=== PATIENT | female | born 1935 | race Caucasian/White ===

== ENCOUNTER 2023-01-04 19:05 | Emergency (ER) | payer OTHER ==
--- OUTSIDE RECORDS SUMMARY | 2023-01-04 19:11 | XMS REPORT | Continuity of Care Document ---
:1935 Author Organization [facility] t Address [address] [place] [address] Care Team Providers Name Role Phone Maya Toledo Primary Care Physician Jhony Arellano Attending Clinician Unavailable Yung White Attending Clinician Unavailable Isai Garsia Attending Clinician Unavailable Bettie REGAN, Randall Meneses Attending Clinician Franklin Toledo Attending Clinician Unavailable Martha Aguirre MD Attending Clinician Michell Lopez Attending Clinician Unavailable John REGAN, Leopoldo Gentile Attending Clinician [phone] Yung White Admitting Clinician Unavailable Randall Alexandre MD Admitting Clinician Franklin Toledo Admitting Clinician Unavailable Physician, No Primary or Family Admitting Clinician Unavaila ble Payers Payer Name Policy Type Policy Number Effective Date Expiration Date Franklin duong MEDICARE PART A [id number] 1998 AND B 00:00:00 Problems Condition Condition Condition Status Onset Resolution Last Treating Co mments Source Name Details Category Date Date Treatment Clinician Date Hypertensi Hypertens Problem Active 2022-09-08 Memoria ve garcía 07:03:11 l disorder, disorder, Herm terri systemic systemic arterial arterial (disorder) (disorder) Active Problem 09/08/2022 [facility] Use for [facility]A [facility]ance Dyspnea on Dyspnea Problem Active 2022-09-08 Memoria exertion on 07:03:11 l (finding) exertion Cely nn (finding) Active Problem 09/08/2022 [facility] Surgical Specialty [facility] Backache Backache Problem Active 2022-09-08 Memoria (finding) (finding) 07:03:11 l Active [place] Problem 09/08/2022 [facility] 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:03:11 l artery artery [place] (disorder) (disorder) Active Problem 09/08/2022 [facility] Use for [facility]A [facility] Hyperlipid Hyperlipi Problem Active 2022-09-08 Memoria emia demia 07:03:11 l (disorder) (disorder) He rmann Active Problem 09/08/2022 [facility] Use for [facility]A Provenance Allergies, Adverse Reactions, Alerts Allergy Allergy Status Severity Reaction(s) Onset Inactive Treating Comm ents Source Name Type Date Date Clinician Sulfa Propensi Active Rash [facility] (Sulfona ty to 2-04 mide adverse 00:00: Hosp[facility] Antibiot reaction 00 l ics) s to drug Sulfa DA Active U 2018-04 [facility] Antib[facility] 00 are ics) [place] Sulfa DA Active U UNKNOWN 2018-04 [facility] (Sulfona 2-06 [facility] 00:00: [facility] Antibiot 00 are ics) [place] sulfa sulfa Active Memoria drugs drugs l [place] Social History Social Habit Start Date Stop Date Quantity Comments Source Exposure to Not sure [facility] SARS-CoV-2 (event) Sexual orientation [facility] Sex Assigned At [birth year] [facility] 00:00:00 00:00:00 Smoking Status Start Date Stop Date Source Tobacco smoking consumption unknown [facility] Medications Ordered Filled Start Stop Current Ordering Indication Dosage Frequency Signature Comments Components Source Medication Medication Date Date Medication? Clinician (SIG) Name Name Bernice Zheng No Notes: Max Douglas mai mg-325 mg 6- 4gm l oral tablet 20:00: acetaminop [place] 00 hen in 24 hours labetalol No 60, SBP Memor ia 6 Hold l 19:14: Parameter: [place] 00 less than 90 mmHg, HR Hold Parameter: l... hydrALAZINE No 100, if Mem oria 09-07 HR<60 l 19:14: and/or [place] 00 labetalol 25mg reached., SBP Hold Parameter: less t... Demerol HCl No 12.5 mg = M emoria 6-09 0.5 mL, l 19:14: Injection, [place] 00 IV Push, q5min PRN for shivers, order duration: 2 dose(s)/ti me(s), first dose 09/07/22 14:14:00 CDT, stop date Limited # of times morphine No 2.5 mg = Memor ia 6- 0.63 mL, l 19:14: Injection, [place] 00 IV Push, q5min PRN for Pain Mild (1-3), order duration: 4 dose(s)/ti me(s), first dose 09/07/22 14:14:00 CDT, stop date Limited # of times, Max dose 10mg; If pain still unrelieved notify Anesthesio logist Dilaudid No 0.5 mg = Memor ia 6-09 0.25 mL, l 19:14: Injection, [place] 00 IV Push, q5min PRN for Pain Moderate (4-6), order duration: 4 dose(s)/ti me(s), first dose 09/07/22 14:14:00 CDT, stop date Limited # of times, Max dose 2mg. If pain still unrelieved , notify Anesthesio logist fentaNYL No 50 mcg = 1 Mem oria 6-09 mL, l 19:14: Injection, [place] 00 IV Push, q5min PRN for pain severe (7-10), order duration: 2 dose(s)/ti me(s), first dose 09/07/22 14:14:00 CDT, stop date Limited # of times, if pain still unrelieved after second dose, notify Anesthesio logist ondansetron 2022-0 No 4 mg = 2 Me moria -09 mL, l 19:14: Injection, IV Push, q15min PRN for nausea/vom iting, order duration: 2 dose(s)/ti me(s), first dose 09/07/22 14:14:00 CDT, stop date Limited # of times promethazin 2022-0 No 12.5 mg, Me moria e IVPB 09-07 Injection, l 19:14: IV Piggyback, Once PRN for severe nausea, infuse over 15 minutes, first dose 09/07/22 14:14:00 CDT diphenhydrA 2022-0 No 12.5 mg = M emoria MINE 09-07 0.25 mL, l 19:14: Injection, IV Push, q15min PRN for allergy symptoms, order duration: 2 dose(s)/ti me(s), first dose 09/07/22 14:14:00 CDT, stop date Limited # of times Saline Lock 2022-0 No 20 mL, Douglas mai Flush 09-07 Soln, IV l 18:44: Push, As Indicated PRN for flush, first dose 09/07/22 13:44:00 CDT propofol 3-0 No 181.685 mg Mem oria 09-07 = 18.17 l 18:38: mL, Emulsion, IV, Once, first dose 09/07/22 13:38:00 CDT, stop date 09/07/22 13:38:00 CDT Lactated 3-0 No IV, start Douglas mai Ringers 09-07 date l Injection 18:36: 09/07/22 13:36:00 CDT, stop date 09/07/22 13:36:00 CDT ceFAZolin 2022-0 No 2 gm, Memoria 09-07 Soln-IV, l 18:00: IV Piggyback, Once, infuse over 30 minutes, first dose 09/07/22 13:00:00 CDT, stop date 09/07/22 13:00:00 CDT, Give within 1 hour of incision, Prophylaxi s ceFAZolin 2022-0 No 2 gm, Memoria 6-09 Soln-IV, l 17:32: IV, Once, first dose 09/07/22 12:32:00 CDT, stop date 09/07/22 12:32:00 CDT lidocaine 3-0 No 30 mg = 3 Mem oria 6-09 mL, l 17:32: Injection, IV, Once, first dose 09/07/22 12:32:00 CDT, stop date 09/07/22 12:32:00 CDT propofol 3-0 No 30 mg = 3 Douglas mai 6-09 mL, l 17:32: Emulsion, IV, Once, first dose 09/07/22 12:32:00 CDT, stop date 09/07/22 12:32:00 CDT Lactated 2022-0 No 1,000 mL, Douglas mai Ringers 6-09 IV, 100 l Injection 17:25: mL/hr, Jimbo n 1,000 mL 00 start date 09/07/22 12:25:00 CDT, For Adults unless there is a known renal disease then use Normal Saline, 1.59, m2 Lidocaine 2022-0 No 5 mg = 0.5 Me moria pf IV start 6- mL, l 0.5mL 17:00: Injection, Jimbo n [TOPS] 00 Subcutaneo us, Once, first dose 09/07/22 12:00:00 CDT, stop date 09/07/22 12:00:00 CDT, For IV Start Saline Lock 0 No 20 mL, Douglas mai Flush 5-16 Soln, IV l 17:13: Push, As Indicated PRN for flush, first dose 08/14/21 12:13:00 CDT Labetalol 2021- No 60, SBP Memor ia 5-16 Hold l 17:13: Parameter: less than 100 mmHg, HR Hold Parameter: ... Hydralazine No 100, if Mem oria 5-16 HR<60 l 17:13: and/or labetalol 25mg reached., SBP Hold Parameter: less t... Demerol HCl No 12.5 mg = M emoria 5-16 0.5 mL, l 17:13: Injection, [place] 00 IV Push, q5min PRN for shivers, order duration: 2 dose(s)/ti me(s), first dose 08/14/21 12:13:00 CDT, stop date Limited # of times Fentanyl No 25 mcg = Memor ia 5-16 0.5 mL, l 17:13: Injection, Nav[place] 00 IV Push, q5min PRN for pain mild-moder ate (1-6), order duration: 2 dose(s)/ti me(s), first dose 08/14/21 12:13:00 CDT, stop date Limited # of times, if pain still unrelieved after second dose, notify Anesthesio logist for fur... Ondansetron No 4 mg = 2 Me moria 5-16 mL, l 17:13: Injection, [place] 00 IV Push, q15min PRN for nausea/vom iting, order duration: 2 dose(s)/ti me(s), first dose 08/14/21 12:13:00 CDT, stop date Limited # of times promethazin No 12.5 mg, Me moria e IVPB 5-16 Injection, l 17:13: IV [place] 00 Piggyback, Once PRN for severe nausea, infuse over 15 minutes, first dose 08/14/21 12:13:00 CDT Diphenhydra No 12.5 mg = M emoria mine 5-16 0.25 mL, l 17:13: Injection, Nav[place] 00 IV Push, q15min PRN for allergy symptoms, order duration: 2 dose(s)/ti me(s), first dose 08/14/21 12:13:00 CDT, stop date Limited # of times Acetaminoph No Notes: Max Memoria en 325 MG / 5-16 4gm l Hydrocodone 17:13: acetaminop [place] Bitartrate 00 hen in 24 5 MG Oral hours Tablet [[place] 5/325] Lactated No IV, start Douglas mai Ringers 5-16 date l Injection 16:47: 08/14/21 Herm terri 11:47:00 CDT, stop date 08/14/21 11:47:00 CDT propofol 2-0 No 160 mg = Memor ia 5-16 16 mL, l 16:45: Emulsion, Navneet 00 IV, Once, first dose 08/14/21 11:45:00 CDT, stop date 08/14/21 11:45:00 CDT ketamine 2-0 No 30 mg = 3 Douglas mai 5-16 mL, l 16:32: Injection, Navneet 00 IV, Once, first dose 08/14/21 11:32:00 CDT, stop date 08/14/21 11:32:00 CDT ketamine 2-0 No 20 mg = 2 Douglas mai 5-16 mL, l 16:25: Injection, [place] IV, Once, first dose 08/14/21 11:25:00 CDT, stop date 08/14/21 11:25:00 CDT fentaNYL 2021-0 No 100 mcg = Douglas mai 5-16 2 mL, l 16:22: Injection, [place] 00 IV, Once, first dose 08/14/21 11:22:00 CDT, stop date 08/14/21 11:22:00 CDT lidocaine 2021-0 No 30 mg = 3 Mem oria 5-16 mL, l 16:22: Injection, [place] 00 IV, Once, first dose 08/14/21 11:22:00 CDT, stop date 08/14/21 11:22:00 CDT propofol 2021-0 No 10 mg = 1 Douglas mai 5-16 mL, l 16:22: Emulsion, [place] 00 IV, Once, first dose 08/14/21 11:22:00 CDT, stop date 08/14/21 11:22:00 CDT Cefazolin 2021-0 No 2 gm, Memoria 5-16 Soln-IV, l 16:00: IV [place] Piggyback, Once, infuse over 30 minutes, first dose 08/14/21 11:00:00 CDT, stop date 08/14/21 11:00:00 CDT, Prophylaxi s Lidocaine 2021-0 No 5 mg = 0.5 Me moria pf IV start 5-16 mL, l 0.5mL 15:00: Injection, Jimbo n [TOPS] 00 Subcutaneo us, Once, first dose 08/14/21 10:00:00 CDT, stop date 08/14/21 10:00:00 CDT, For IV Start LR 1,000 mL No 1,000 mL, M emoria 5-16 IV, 100 l 14:48: mL/hr, start date 08/14/21 9:48:00 CDT, For Adults unless there is a known renal disease then use Normal Saline Vitamin C Yes 500 mg, Memor ia 5-13 Oral, l 19:53: Daily One-A-Day Yes 1 tabs, Memor ia 50+ 5-13 Oral, l 19:53: Daily Amlodipine 0 Yes 5 mg, Memori a 5-13 Oral, qHS l 19:52: olmesartan 0 Yes 40 mg, Memor ia 5-13 Oral, l 19:52: Daily Acetaminoph 0 Yes 1,000 mg = Memoria en 500 MG 5-13 2 tabs, l Oral Tablet 19:52: Oral, Cely nn [Tylenol] 00 q6hr, PRN as needed for pain amLODIPine 0 Yes 5 mg, Memori a 5-13 Oral, qHS l 19:52: olmesartan 0 Yes 40 mg, Memor ia 5-13 Oral, l 19:52: Daily Tylenol 0 Yes 1,000 mg = Douglas mai Extra 5-13 2 tabs, l Strength 19:52: Oral, [place] 500 mg oral 00 q6hr, PRN tablet as needed for pain [place]-3 Yes 2,000 mg, Memor ia Fish Oil 5-13 Oral, l 19:52: Daily pantoprazol 0 Yes 40 mg, Douglas mai e 5-13 Oral, l 19:51: Daily Pravastatin 0 Yes 40 mg, Douglas mai 5-13 Oral, l 19:51: Daily Valproate 0 Yes 250 mg, Memor ia 5-13 Oral, qHS l 19:51: Synthroid 2021-0 Yes 50 mcg, Memor ia 5-13 Oral, l 19:51: Daily Prolia 2021-0 Yes 60 mg, Memoria 5-13 Subcutaneo l 19:51: us, q6mo pantoprazol 2021-0 Yes 40 mg, Douglas mai e 5-13 Oral, l 19:51: Daily pravastatin 2021-0 Yes 40 mg, Douglas mai 5-13 Oral, l 19:51: Daily divalproex 2021-0 Yes 250 mg, Douglas mai sodium 5-13 Oral, qHS l 19:51: Synthroid 2021-0 Yes 50 mcg, Memor ia 5-13 Oral, l 19:51: Daily Prolia 2021-0 Yes 60 mg, Memoria 5-13 Subcutaneo l 19:51: us, q6mo Aspirin 2021-0 Yes 81 mg, Memoria 5-13 Oral, l 19:50: Daily Hydrochloro 2-0 Yes 25 mg, Douglas mai thiazide 5-13 Oral, l 19:50: Daily Buspirone 2021-0 Yes 5 mg, Memoria 5-13 Oral, BID l 19:50: aspirin 2021-0 Yes 81 mg, Memoria 5-13 Oral, l 19:50: Daily hydroCHLORO 2-0 Yes 25 mg, Douglas mai thiazide 5-13 Oral, l 19:50: Daily busPIRone 2021-0 Yes 5 mg, Memoria 5-13 Oral, BID l 19:50: 00 Immunizations Ordered Filled Immunization Date Status Comments [facility] e Immunization Name Name [facility] NoWaitID-19 2020-05-26 [facility] 2020-[facility] 2020-05-26 [facility] 2020-05-05 [facility] 2020-[facility]05 [facility] 00:00:00 [facility] PFIZER COVID-19 2020-05-05 Completed [facility]ACC[facility] 00:00:00 [facility] PFIZER COVID-19 2020-05-05 Completed [facility] 00:00:00 [facility] PFIZER COVID-19 Unknown Completed [facility] PFIZER COVID-19 Unknown Completed [facility] Vital Signs Vital Name Observation Time Observation Value Comments Source Heart Rate 2022-09-07 19:45:00 [facility] Respitory Rate 2022-09-07 19:45:00 Memori al [place] Systolic (mm Hg) 2022-09-07 19:45:00 Douglas rial [place] Diastolic (mm Hg) 2022-09-07 19:45:00 Mem orial [place] Heart Rate 2022-09-07 19:30:00 [facility] [place] Respitory Rate 2022-09-07 19:30:00 Memori al [place] Systolic (mm Hg) 2022-09-07 19:30:00 Douglas rial [place] Diastolic (mm Hg) 2022-09-07 19:30:00 Mem orial [place] Heart Rate 2022-09-07 19:15:00 [facility] [place] Respitory Rate 2022-09-07 19:15:00 Memori al [place] Systolic (mm Hg) 2022-09-07 19:15:00 Douglas rial [place] Diastolic (mm Hg) 2022-09-07 19:15:00 Mem orial [place] Temperature Oral (F) 2022-09-07 18:30:00 36.9 Bri [facility] Temperature Oral (F) 2022-09-07 16:32:00 36 Bri [facility] [place] Height 2022-09-07 16:32:00 152.40 cm [facility] Weight 2022-09-07 16:32:00 [facility] [place] Height 2022-08-30 19:34:00 152.40 cm [facility] [place] Weight 2022-08-30 19:34:00 [facility] [place] Heart Rate 2021-08-14 17:30:00 [facility] [place] Respitory Rate 2021-08-14 17:30:00 Memori al [place] Systolic (mm Hg) 2021-08-14 17:30:00 Douglas rial [place] Diastolic (mm Hg) 2021-08-14 17:30:00 Mem orial [place] Diastolic (mm Hg) 2021-08-14 17:15:00 Mem orial [place] Heart Rate 2021-08-14 17:15:00 [facility] [place] Respitory Rate 2021-08-14 17:15:00 Memori al [place] Systolic (mm Hg) 2021-08-14 17:15:00 Douglas rial [place] Heart Rate 2021-08-14 17:00:00 [facility] [place] Respitory Rate 2021-08-14 17:00:00 Memori al [place] Systolic (mm Hg) 2021-08-14 17:00:00 Douglas rial [place] Diastolic (mm Hg) 2021-08-14 17:00:00 Mem orial [place] Temperature Oral (F) 2021-08-14 16:45:00 36.2 [facility] Temperature Oral (F) 2021-08-14 14:49:00 36.2 Bri [facility] Height 2021-08-14 14:49:00 152 cm [facility] Weight 2021-08-14 14:49:00 [facility] Procedures Procedure Date / Time Performed Performing Clinician [facility] e INSERT INTERLAMINAR 2022-09-07 17:39:00 [facility] DISTRACTION DEV. W/O FUSION SINGLE LEVEL LUMBAR 52666 (N/A)<sup>2</sup> INSERT INTERLAMINAR 2022-09-07 17:39:00 [facility] DISTRACTION DEV. W/O FUSION SECOND LEVEL LUMBAR 79533 (N/A)<sup>1</sup> PERCUTANEOUS 2021-08-14 16:33:00 [facility] LAMINOTOMY/LAMINECTOMY DECOM.NEURAL [place]. W/IMAGE; SING/MULTI; UNI/SHIRA LUMBAR 0275T (N/A)<sup>1</sup> XR KNEE 3 VIEWS BILATERAL 2021-01-25 20:43:15 Martha Aguirre [facility] Arthroplasty of knee [facility] He ann Arthroplasty of knee [facility] rmann History of tonsillectomy Memoria l [place] Thyroidectomy [facility] Plan of Care Planned Activity Planned Date Details Comments Source Future Scheduled 2022-12-06 COVID-19 VACCINE (3 - [facility] Test 05:56:19 Pfizer series) [code = COVID-19 VACCINE (3 - Pfizer series)] Future Scheduled 2022-12-06 INFLUENZA VACCINE (#1) [facility] Test 05:56:19 [code = INFLUENZA VACCINE (#1)] Future Scheduled 2022-12-06 SHINGLES VACCINES (1 Met [facility] Test 05:56:19 of 2) [code = SHINGLES VACCINES (1 of 2)] Future Scheduled 2022-12-06 65+ PNEUMOCOCCAL [facility] Test 05:56:19 VACCINE (1 - PCV) [code = 65+ PNEUMOCOCCAL VACCINE (1 - PCV)] Future Scheduled 2022-02-05 HEPATITIS B VACCINES Met [facility] Test 12:01:23 (1 of 3 - 3-dose series) [code = HEPATITIS B VACCINES (1 of 3 - 3-dose series)] Future Scheduled 2022-02-05 SHINGLES VACCINES (1 Met [facility] Test 12:01:23 of 2) [code = SHINGLES VACCINES (1 of 2)] Future Scheduled 2022-02-05 65+ PNEUMOCOCCAL [facility] Test 12:01:23 VACCINE (1 - PCV) [code = 65+ PNEUMOCOCCAL VACCINE (1 - PCV)] Future Scheduled 2022-02-05 COVID-19 VACCINE (3 - [facility] Test 12:01:23 Booster for Pfizer series) [code = COVID-19 VACCINE (3 - Booster for Pfizer series)] Future Scheduled 2022-02-05 INFLUENZA VACCINE Method [facility] Test 12:01:23 [code = INFLUENZA VACCINE] Future Scheduled 2021-12-18 HEPATITIS B VACCINES Met [facility] Test 02:47:18 (1 of 3 - 3-dose series) [code = HEPATITIS B VACCINES (1 of 3 - 3-dose series)] Future Scheduled 2021-12-18 SHINGLES VACCINES (1 Met [facility] Test 02:47:18 of 2) [code = SHINGLES VACCINES (1 of 2)] Future Scheduled 2021-12-18 65+ [facility]18 VACCINE (1 - PCV) [code = 65+ PNEUMOCOCCAL VACCINE (1 - PCV)] Future Scheduled 2021-12-18 COVID-19 VACCINE (3 - Me [facility] Test 02:47:18 Booster for Pfizer series) [code = COVID-19 VACCINE (3 - Booster for Pfizer series)] Future Scheduled 2021-12-18 INFLUENZA VACCINE Method [facility] Test 02:47:18 [code = INFLUENZA VACCINE] Future Scheduled 2021-12-18 HEPATITIS B VACCINES Met [facility] Test 02:47:18 (1 of 3 - 3-dose series) [code = HEPATITIS B VACCINES (1 of 3 - 3-dose series)] Future Scheduled 2021-12-18 SHINGLES VACCINES (1 Met [facility] Test 02:47:18 of 2) [code = SHINGLES VACCINES (1 of 2)] Future Scheduled 2021-12-18 65+ P[facility]UMOCOCCAL [facility] Test 02:47:18 VACCINE (1 - PCV) [code = 65+ PNEUMOCOCCAL VACCINE (1 - PCV)] Future Scheduled 2021-12-18 COVID-19 VACCINE (3 - Me [facility] Test 02:47:18 Booster for Pfizer series) [code = COVID-19 VACCINE (3 - Booster for Pfizer series)] Future Scheduled 2021-12-18 INFLUENZA VACCINE [facility] Test 02:47:18 [code = INFLUENZA VACCINE] Future Scheduled SHINGLES VACCINES (#1) [facility] Test [code = SHINGLES VACCINES (#1)] Future Scheduled 65+ PNEUMOCOCCAL [facility] Test VACCINE (1 of 1 - PPSV23) [code = 65+ PNEUMOCOCCAL VACCINE (1 of 1 - PPSV23)] Future Scheduled INFLUENZA VACCINE Method [facility] Hospital Test [code = INFLUENZA VACCINE] Encounters Start End Encounter Admission Attending Care Care Encounter Source Date/Time Date/Time Type Type Clinicians Facility Department ID 2021-04-07 Outpatient ISHMAEL Arellano [id number] [facility] 13:49:43 Jhony 02 [facility] [place] 2021-01-25 Outpatient [facility] [id number] [place] 15:22:29 Health 2021-01-05 Inpatient ISHMAEL Torres [id number] [facility] 12:30:00 Yung [id number] [facility] [place] 2020-12-21 Inpatient ISHMAEL DANILO [id number] [facility] 12:58:00 [id number] [facility] [place] 2019-12-22 Inpatient ISHMAEL Garsia RAD [id number] [facility] 09:00:00 Isai [id number] [facility] [place] 2022-09-07 2022-09-07 Outpatient GHASSAN TOPS [id number] [facility] 16:20:00 20:10:00 Surgical l [facility] 2022-09-07 2022-09-07 Outpatient Bettie, [id number] 11:20:00 15:10:00 [facility] 2022-03-05 2022-03-05 Outpatient [facility] [id number] [facility] 15:38:00 15:38:00 47 [facility] [place] 2022-02-02 2022-02-02 Outpatient nullFlavo TSSH [id number] Memoria 16:12:29 18:10:00 r shea [place] 2022-01-11 2022-01-11 Outpatient Franklin [facility] MATY [id number] [facility] 12:30:00 12:30:00 61 [facility] [place] 2021-08-14 2021-08-14 Outpatient nullFlavo TOPS [id number] Memoria 16:19:40 17:51:00 r Surgical l [facility] 2021-08-14 2021-08-14 Outpatient Bettie, [id number] 11:19:40 12:51:00 Randall Floyd [facility] 2021-08-14 2021-08-14 Outpatient nullFlavo TSSH [id number] Memoria 11:19:40 12:51:00 r shea Toth 2021-04-07 2021-04-07 Outpatient REINA [facility]llano [facility] RMRI [id number] [facility] 12:13:00 12:13:00 Jhony [id number] [facility] [place] 2021-01-25 2021-01-25 Office EMMANUEL Aguirre [id number] [place] 14:53:11 15:52:19 Visit [facility] [id number] [facility] [id number] [facility] [id number] 2021-01-05 2021-01-05 Outpatient REINA White [facility] MATY [id number] [facility] 12:30:00 12:30:00 Yung 39 [facility] [place] 2020-12-21 2020-12-21 Emergency EM John, DBTB DANILO [id number] [facility] 12:58:00 17:10:00 Michell Coffey [facility] [place] 2020-08-10 2020-08-[address] [id number] [facility] 15:00:00 15:00:00 Yung [id number] [facility] [place] 2020-05-26 2020-05-26 Clinical John, 1.2.840.1 [id number] [facility] 08:49:18 08:54:18 Support Leopoldo [address]1649.1.[address] P. 3.430.2.7 Hospit a .3.381182 l .8 2020-05-26 2020-05-26 Travel 1.2.840.1 [id number] [facility] 00:00:00 00:00:[address] 3.430.2.7 0.2.7.3.698 Ho spita .3.230341 084.8 l .8 2020-05-05 2020-05-05 Clinical 1.2.840.1 [id number] [facility] 08:57:20 09:02:[address] 3.430.2.7 Hospit a .3.501569 l .8 2020-05-05 2020-05-05 Travel 1.2.840.1 [id number] [id number] [facility] 00:00:00 00:00:[address] 3.430.2.7 0.2.7.3.698 Ho spita .3.196940 084.8 l .8 2020-01-01 2020-01-01 Outpatient REINA ChristopherISHMAEL MATY [id number] [facility] 12:00:00 12:00:00 Yung [id number] [facility] [employer] 2019-12-17 2019-12-17 Outpatient ISHMAEL Garsia LAB [id number] [facility] 16:20:00 16:20:00 Isai [id number] [facility] [place] Results Test Description Test Time Test Comments [facility] - [facility] 2 V 2022-03-05 16:14:00 [facility] : 1935 Sex: F Patient Name: VEENA HULL Unit No: [id number] EXAMS: CPT: [id number] XR CHEST 2 V [id number] COMPARISON: December 21, 2020. CHEST RADIOGRAPHS -FRONTAL AND LATERAL VIEWS. INDICATION: Shortness of breath. FINDINGS: The lungs are clear. No consolidation or effusion is seen. The hilar regions and pulmonary vasculature are unremarkable. Cardiac silhouette is normal. IMPRESSION: No acute lung disease. at 1614 Reported and signed by: Alla Lorenzo MD CC: Franklin Toledo MD Technologist: Junito Pratt Fluoro Time: DAP (Gy m2): Air Kerma (mGy): Trscr Dt/Tm: 03/05/2022 (1614) by:[email or web address] Orig Print D/T: S: 03/05/2022 (2307) BATCH NO: N/A Name: VEENA HULL [facility] [place] Phys: [email or web address] - Franklin Toledo [address] [facility] 1935 Age: 86 Sex: F Finley,Tal Loc: [facility]ALEX Exam Date: 03/05/2022 Status: REG CLI PH: FAX: PAGE 1 Signed Report - MG 3D SCREENING 2022-01-12 DIG WCAD 17:24:[facility] : 1935 Sex: F Patient Name: VEENA HULL Unit No: [id number] EXAMS: CPT: [id number] MG 3D SCREENING DIG WCAD CLINICAL: Z12.31 Screening Mammogram. The patient denies any current breast complaints. Digital breast tomosynthesis imaging has been obtained as part of this examination. COMPARISON(S): Comparison is made to exam(s) dated: 01/05/2021, 01/01/2020, 12/29/2018. FINDINGS: Breast Composition Category A: The breast tissue is predominately fatty. Current study was also evaluated with a Computer Aided Detection (CAD) system. There are benign-appearing calcifications which appear similar without a suspicious group appreciated. No significant change is noted of the overall parenchymal pattern. No dominant suspicious mass, malignant type microcalcifications, or unexpected distortion is seen in either breast. IMPRESSION: BENIGN There are no specific mammographic features of malignancy. Recommend correlation with clinical breast exam. If there are no suspicious findings on physical examination, routine mammographic evaluation can be performed in 1 year if clinically indicated. (01/12/2023) A letter will be sent informing the patient of the results of this examination and the appropriate information has been entered into a reminder system with a targeted due date for the next mammogram. [facility] specialized breast radiologists follow the [place] [employer] Guidelines of annual screening mammography after age 40. Please note that imaging studies do not have 100% sensitivity, therefore a negative exam should not delay further workup/biopsy or follow-up of a clinically suspicious finding. This exam was interpreted at the [place] location. Abbie Borja M.D. mt/:01/12/2022 17:24:21 Letter: Normal BI-RADS Category 2: Benign Name: VEENA HULL Mammography Phys: CRAIGRanjitFranklin Franco : 1935 Age: 86 Sex: F [place], [place] Loc: T.PINEDO Exam Date: 01/11/2022 Status: PRE REF PH: FAX: PAGE 1 Signed Report (CONTINUED) Patient Name: VEENA HULL Unit No: [id number] EXAMS: CPT: [id number] MG 3D SCREENING DIG WCAD (Continued) at 1724 Reported and signed by: Abbie Borja MD CC: Franklin Toledo MD Technologist: Sadia Dt/Tm: 01/12/2022 (1724) by:MILLER Orig Print D/T: S: 01/15/2022 (141) BATCH NO: N/A Name: VEENA HULL Mammography Phys: Franklin Almeida : 1935 Age: 86 Sex: F Edie Mej[place] Loc: T.PINEDO Exam Date: 01/11/2022 Status: PRE REF PH: FAX: PAGE 2 Signed Report - MRI L-SPINE W/O 2021-04-07 CONT 13:46:00 [facility] : 1935 Sex: F Patient Name: VEENA HULL Unit No: [id number] EXAMS: CPT: [id number] MRI L-SPINE W/O CONT 89405 EXAMINATION: MR LUMBAR SPINE WITHOUT CONTRAST CLINICAL INFORMATION: Lumbar radiculopathy. TECHNIQUE: Noncontrast multiplanar MRI examination of the lumbar spine. COMPARISON: CT dated 08/10/2020 FINDINGS: 5 lumbar type vertebral bodies are present when correlated to the CT examination. Note that there is bilateral lumbosacral transitional anatomy with sacralization of L5 on both sides on the basis of pseudoarthrosis between the transverse processes and adjacent sacrum, hypertrophic changes noted on the left side compared to the right side which is better seen on the prior CT dated 08/10/2020. Lumbar vertebrae appear intact. No acute osseous abnormality or fracture. No marrow replacing or infiltrating process. Lumbar vertebral heights intact. Levoscoliosis of the lumbar spine centered at L2 as seen on the prior CT examination. Right lateral listhesis at T12-L1, L1-L2, and L2-L3. Left lateral listhesis at L2-L3 and L3-L4, minimally present at L4-5. There is also grade 1 retrolisthesis at T12-L1. Minimal trace grade 1 retrolisthesis at L2-L3. Grade 1 anterolisthesis at L4-L5. Disc height narrowing and disc desiccation with marginal ossified formation throughout the lumbar spine, particularly severe at T12-L1, L2-L3, L4-5, and L5-S1. No definite evidence of ankylosis or osseous erosive disease. Bulky marginal osteophyte formation throughout the lumbar spine present. Spinal cord terminates at L1. Numerous small synovial cysts are surrounding the bilateral L3-L4 facet joints, best seen on sagittal series 5, image 9 as well as sagittal series 5, image 15, secondary to severe facet arthritis. Paravertebral and paraspinal soft tissues are otherwise intact. Numerous benign-appearing bilateral subcentimeter T2 hyperintense cysts. Additional findings as described below: T12 -- L1: Retrolisthesis with disc bulge and adjacent endplate osteophyte formation, in addition to bilateral hypertrophic facet degeneration, right greater than left. Mild-moderate narrowing of the spinal canal. Mild-moderate left-sided and mild right-sided neural foraminal stenosis. L1 -- L2: Retrolisthesis and diffuse of compression disc bulge in Name: VEENA HULL MRI OP Phys: [email or web address].01 - [place] [id number] [place]: 1935 Age: 85 Sex: F [place] [id number] Loc: T.MRI Exam Date: 04/07/2021 Status: REG CLI PH: FAX: PAGE 1 Signed Report (CONTINUED) Patient Name: VEENA HULL Unit No: [id number] EXAMS: CPT: [id number] MRI L-SPINE W/O CONT 16354 (Continued) addition to advanced bilateral hypertrophic facet degeneration, resulting in mild narrowing of the spinal canal, in addition to severe right-sided and moderate left-sided neural foraminal stenosis. L2 -- L3: Diffuse disc bulge with adjacent plate osteophyte formation and severe bilateral hypertrophic facet degeneration resulting in moderate-severe narrowing of the spinal canal, with only mild CSF signal within the thecal sac at this level as seen on axial series 7, image 24. Moderately advanced-severe narrowing of both neural foramina. L3 -- L4: Diffuse circumferential disc bulge with superimposed posterior central disc protrusion measuring 4.5 mm, in addition to severe bilateral hypertrophic facet degeneration and ligament buckling, resulting in severe spinal canal stenosis with effacement of the CSF signal within the thecal sac at this level. Severe left-sided and moderately advanced right-sided neural foraminal stenosis. L4 -- L5: Anterolisthesis with disc uncovering and superimposed disc bulge, in addition to severe bilateral hypertrophic facet degeneration. Mild narrowing of the spinal canal. Moderate narrowing of both neural foramina, left worse than right. L5 -- S1: Diffuse circumferential disc bulge with superimposed posterior central broad-based disc protrusion measuring 5.3 mm. Advanced bilateral hypertrophic facet degeneration. No significant mass effect on the thecal sac which terminates slightly below the L5-S1 intervertebral disc space. Mild-moderate narrowing in the proximal most aspects of both lateral recesses. Moderately advanced-severe narrowing of both neural foramina. IMPRESSION: Advanced multifocal lumbar spondylosis in the setting of lumbar levoscoliosis and multilevel spondylolisthesis as detailed above, without acute osseous abnormality or fracture. Severe spinal canal stenosis at L3-L4 with effacement of the CSF signal within the thecal sac at this level. Moderate-severe spinal canal stenosis at L2-L3. Varying levels of advanced neural foraminal encroachment. at 1346 Reported and signed by: Jeremy Philip MD Name: VEENA HULL MRI OP Phys: [place] [id number] [address] : 1935 Age: 85 Sex: [place] [id number] Loc: T.MRI Exam Date: 04/07/2021 Status: REG CLI PH: FAX: PAGE 2 Signed Report (CONTINUED) Patient Name: VEENA HULL Unit No: [id number] EXAMS: CPT: [id number] MRI L-SPINE W/O CONT 21436 (Continued) CC: Yung White MD; Jhony Arellano MD Technologist: Alessio Garcia Trscr Dt/Tm: 04/07/2021 (134) by:[email or web address] Orig Print D/T: S: 04/07/2021 (134) BATCH NO: N/A Name: VEENA HULL MRI OP Phys: [place]. [place] [id number] [address] : 1935 Age: 85 Sex: [place] [address] Loc: T.MRI Exam Date: 04/07/2021 Status: REG CLI PH: FAX: PAGE 3 Signed Report - 3D SCREENING 2021-01-06 [facility] WCAD 16:54:00 [facility] : 1935 Sex: F Patient Name: VEENA HULL Unit No: [id number] EXAMS: CPT: [id number] MG 3D SCREENING DIG [facility] CLINICAL: Z12.31 - Screening Mammogram. Digital breast tomosynthesis imaging has been obtained as part of this examination. Comparison is made to exam(s) dated: 01/01/2020, 12/29/2018, 12/17/2016, 11/28/2015, 09/13/2014. Breast Composition Category A: The breast tissue is predominately fatty. Current study was also evaluated with a Computer Aided Detection (CAD) system. There are benign calcifications in the left breast. No significant masses, calcifications, or other findings are seen in either breast. There has been no significant interval change. IMPRESSION: BENIGN There is no mammographic evidence of malignancy. Routine mammographic evaluation in 1 year is recommended.(01/06/2022 ) A letter will be sent informing the patient of the results of this examination and the appropriate information has been entered into a reminder system with a targeted due date for the next mammogram. [facility] specialized breast radiologists follow the [place] [employer] Guidelines of annual screening mammography after age 40. This exam was interpreted at the [place] location. Daija Harp M.D. aa/penrad:01/06/2021 16:54:02 Letter: Normal BI-RADS Category 2: Benign at 0914 Reported and signed by: Daija Harp MD CC: Yung White MD Technologist: Trscr Dt/Tm: 01/06/2021 (1654) by:MILLER Orig Print D/T: S: 01/23/2021 (0703) BATCH NO: N/A Name: VEENA HULL [facility] Phys: Yung Lindsey MD : 1935 Age: 85 Sex: F [place], [place] Loc: LIZA Exam Date: 01/05/2021 Status: PRE REF PH: FAX: PAGE 1 Signed Report - XR CHEST 2 V 2020-12-21 16:12:00 [facility] : 1935 Sex: F Patient Name: VEENA HULL Unit No: [id number] EXAMS: CPT: [id number] XR CHEST 2 V 64624 EXAM: SINGLE VIEW OF THE CHEST HISTORY: 85-year-old female with chest pain. COMPARISON: Chest x-ray 12/21/2020 at 1343 hours. FINDINGS: Lines/tubes: None. Lungs/Pleura: A linear retrocardiac opacity is present. Pulmonary vasculature appears within normal limits. No pleural effusion or pneumothorax. Heart/mediastinum: Cardiomediastinal silhouette is within normal limits. Bones/soft tissues: Within normal limits. IMPRESSION: Linear retrocardiac opacity, likely reflecting atelectasis. at 1612 Reported and signed by: YUMI WOOD DO CC: Michell Lopez MD; Marguerite Ho MD; Yung White MD Technologist: ANITA Thompson Time: DAP (Gy m2): Air Kerma (mGy): Trscr Dt/Tm: 12/21/2020 (161) by:[email or web address] Orig Print D/T: S: 12/21/2020 (1614) BATCH NO: N/A Name: VEENA HULL [facility] [place] Phys: MD Marguerite Cobian [address] [facility] : 1935 Age: 85 Sex: F [place] Loc: T.ERS Exam Date: 12/21/2020 Status: REG ER PH: FAX: PAGE 1 Signed Report B-TYPE NATRIURETIC PEPTIDE 2020-12-21 15:21:00 Test Item Value Reference Range Interpretation Comme nts B-TYPE NATRIURETIC PEPTIDE (test code = BNP) 45 pg/mL 5-100 N BASIC METABOLIC [id number] 15:01:00 Test Item Value Reference Range Interpretation Comments SODIUM (test code 137 mmol/L 136-145 N = NA) POTASSIUM (test 3.8 MMOL/L 3.6-5.2 N code = K) CHLORIDE (test 98 MMOL/L 98-110 N code = CL) CARBON DIOXIDE 26 mEq/L 24-32 N (test code = CO2) GLUCOSE (test code 117 mg/dL 70-110 H = GLU) BLOOD UREA 25 mg/dL 7-18 H NITROGEN (test code = BUN) GLOMERULAR >=60 max >60 The estimated FILTRATION RATE estimate glomerular (test code = GFR) filtration rate is computed usingpatient ra ce, age (>18), sex, and serum creatinin e. If anyof the neede d data elements a re missing the Laboratory edwina ot compute an estimation of t he glomerular filtration rate . CREATININE (test 0.84 mg/dL 0.60-1.30 N code = CREAT) CALCIUM (test code 10.3 mg/dL 8.6-10.3 N = CA) TROPONIN I [id number] 14:55:00 Test Item Value Reference Range Interpretation Comments TROPONIN I RAPID 0.00 ng/mL 0.00-0.08 N ISTAT TROP ONIN I (test code = CRITERIA0.00-0. 08 ng/mL - TROPIRAP) Negative>0.08 n g/mL - Positive The us e of serial sampling and te sting protocol is are commended practice.An samuel vated troponin level alone is often not suffi cient fordiagnosis of myocardial infarction. Tro ponin results obtaine d by different assay s may vary.Evaluation of the extent of myoca rdial damage based on increase of troponin would be valid only if similar methodology is used. CBC W/AUTO [id number] 14:50:00 Test Item Value Reference Range Interpretation Comments WHITE BLOOD CELL (test code = WBC) 6.07 K/mm3 5.0-12.0 N RED BLOOD CELL (test code = RBC) 3.97 M/mm3 4.20-5.40 L HEMOGLOBIN (test code = HGB) 13.4 G/DL 12.0-16.0 N HEMATOCRIT (test code = HCT) 41.0 % 34.9-44.5 N MEAN CELL VOLUME (test code = MCV) 103 fL 81-99 H MEAN CELL HGB (test code = MCH) 33.8 PGM 27-31 H MEAN CELL HGB CONCENTRATION (test 32.7 G/DL 33-37 L code = MCHC) RED CELL DISTRIBUTION WIDTH (test 11.1 % 11.6-16.2 L code = RDW) PLATELET COUNT (test code = PLT) 229 K/mm3 130-400 N MEAN PLATELET VOLUME (test code = 10.1 fl 7.4-10.4 N MPV) NEUTROPHIL % (test code = NT%) 64.6 % 43-65 N IMMATURE GRANULOCYTE % (test code 0.3 % 0.0-2.0 N = IG%) LYMPHOCYTE % (test code = LY%) 26.2 % 20.5-45.5 N MONOCYTE % (test code = MO%) 7.6 % 5.5-11.7 N EOSINOPHIL % (test code = EO%) 0.5 % 0.9-2.9 L BASOPHIL % (test code = BA%) 0.8 % 0.2-1.0 N NUCLEATED RBC % (test code = 0.0 % 0-1.0 N NRBC%) NEUTROPHIL # (test code = NT#) 3.92 K/mm3 2.2-4.8 N LYMPHOCYTE # (test code = LY#) 1.59 K/mm3 1.3-2.9 N MONOCYTE # (test code = MO#) 0.46 K/mm3 0.3-0.8 N EOSINOPHIL # (test code = EO#) 0.03 K/MM3 0.0-0.2 N BASOPHIL # (test code = BA#) 0.05 K/mm3 0.0-0.1 N - XR CHEST 1 [id number] 14:28:00 [facility] : 1935 Sex: FPatient Name: VEENA HULL Unit No: [id number] EXAMS: CPT: [id number] XR CHEST 1 V 37538 EXAM: SINGLE VIEW OF THE CHEST HISTORY: 85-year-old female with chest pain. COMPARISON: Chest x-ray 03/06/2019. FINDINGS: Lines/tubes: None. Lungs/Pleura: Retrocardiac opacity, which appears new from the comparison exam in 2019. Pulmonary vasculature appears within normal limits. No pleural effusion or pneumothorax. Heart/mediastinum: Cardiomediastinal silhouette is within normal limits. Bones/soft tissues: Within normal limits. IMPRESSION: New retrocardiac opacity with central lucency, may reflect hiatal hernia or developing infectious/inflammatory process. Lateral projection or cross- sectional imaging may further characterize. at 1428 Reported and signed by: YUMI WOOD DO CC: Michell Lopez MD; Marguerite Ho MD; Yung White MD Technologist: Selma Arora Fluoro Time: DAP (Gy m2): Air Kerma (mGy): Trscr Dt/Tm: 12/21/2020 (1428) by:[email or web address] Orig Print D/T: S: 12/21/2020 (1432) BATCH NO: N/A Name: VEENA HULL [facility] Phys: MD Marguerite Cobian [address] [facility] : 1935 Age: 85 Sex: F [place] Loc: T.ERS Exam Date: 12/21/2020 Status: REG ER PH: FAX: PAGE 1 Signed Report- CT L-SPINE W/O [id number] 16:55:00 [facility] : 1935 Sex: FPatient Name: VEENA HULL Unit No: [id number] EXAMS: CPT: [id number] CT L-SPINE W/O CONTRAST 23863 CT SCAN OF THE LUMBAR SPINE WITHOUT CONTRAST: COMPARISON: None available CLINICAL HISTORY:RIGHT HIP PAIN RADIATING DOWN THE LEG. Contrast: IV- None. Oral-None. DLP: 811 mGy/cm. FINDINGS: Extensive multilevel disc space narrowing, osteophytosis and hypertrophic facet changes seen. Levocurvature of the lumbar spine noted. Grade 1 anterolisthesis of L4 on L5. Mild retrolisthesis of T12 on L1.No acute fracture is seen. No bony destructive lesions seen. IMPRESSION: Multilevel degenerative change. Levocurvature of the lumbar spine. Grade 1 anterolisthesis of L4 on L5. Mild retrolisthesis of T12 on L1. If patient has persistent unexplained symptomatology, MRI may be helpful for further evaluation. COMMENT: CT radiation dose optimization is achieved for this examination by one or more of the following dose reduction techniques-automated exposure control, adjustment of the mA and/or KV according to patient size, and/or utilization of iterative reconstruction technique. at 1651 Reported and signed by: Bhanu Gutierrez MD CC: Yung White MD Technologist: Cheri Alcantar CTDI: 28.97 DLP: 811.12 Trscr Dt/Tm: 08/10/2020 (6737) by:Fam Orig Print D/T: S: 08/10/2020 (1658) BATCH NO: N/A Name: VEENA HULL [facility] [place] Phys: Yung Lindsey MD [address] [facility] : 1935 Age: 85 Sex: F [place] Me[place] Loc: T.CTS Exam Date: 08/10/2020 Status: REG CLI PH: FAX: PAGE 1 Signed Report- CT PELVIS W/O [id number] 15:56:00 [facility] : 1935 Sex: FPatient Name: VEENA HULL Unit No: [id number] EXAMS: CPT: [id number] CT PELVIS W/O CONTRAST 16327 EXAM: CT scan of the bony pelvis without contrast COMPARISON: None available CLINICAL HISTORY: RIGHT HIP PAIN RADIATING DOWN THE LEG. Contrast: IV-None. Oral-None. DLP: 1151 mGy/cm. FINDINGS: No acute fracture or dislocation seen. Mild degenerative changes are seen involving the right and left hips. No significant hip joint effusion seen. Incompletely distended bladder is unremarkable. No significant free fluid seen in the pelvis. IMPRESSION: Degenerative changes are seen involving the hips. COMMENT: CT radiation dose optimization is achieved for this examination by one or more of the following dose reduction techniques-automated exposure control, adjustment of the mA and/or KV accordingto patient size, and/or utilization of iterative reconstruction technique. Electronically Signedby Bhanu Gutierrez MD on 08/10/2020 at 1556 Reported and signed by: Bhanu Gutierrez MD CC: Yung White MD [facility] hnologist: Cheri Alcantar CTDI: 21.67 DLP: 751.41 Trscr Dt/Tm: 08/10/2020 (1556) by:[email or web address] Orig Print D/T: S: 08/10/2020 (1600) BATCH NO: N/A Name: VEENA HULL [facility] [place] Phys: Yung Lindsey MD [address] [facility] : 1935 Age: 85 Sex: [place] Loc: T.CTS Exam Date: 08/10/2020 Status: REG CLI PH: FAX: PAGE 1 Signed Report- XR SWLW FUNC W/C [id number] 13:48:00Patient Name: VEENA HULL Unit No: [id number] EXAMS: CPT: [id number] XR SWLW FUNC W/C V 93320 MODIFIED BARIUM SWALLOW CLINICAL HISTORY: ASPIRATION SEEN ON BARIUM SWALLOW, OCCASIONAL COUGH WHEN. DLP: 1.8 mGy CAK. FINDINGS: Modified barium swallow was performed in conjunction with speech pathology. No laryngeal penetration or aspiration was demonstrated during the exam. at 1348 Reported and signed by: Bhanu Gutierrez MD CC: Isai chin Technologist: Parminder Ferreira ; Peggy Alejo Fluoro Time: 60 DAP (Gy m2): Air Kerma (mGy): 1.816Trscr Dt/Tm: 12/22/2019 (1348) by:Fam Orig Print D/T: S: 12/22/2019 (1351) BATCH NO: N/A Name: VEENA HULL [facility] [place] Phys: Isai Hyman [address] [facility] : 1935 Age: 84 Sex: F [place] Loc: T.RAD Exam Date: 12/22/2019 Status: REG CLI PH: FAX: PAGE 1 Signed ReportNovel Coronavirus 2019 [id number] 09:13:00 Test Item Value Reference Range Interpretation Comments Novel Coronavirus Not Detected Not Detected Testing wa s performed 2019 Inhouse (test using the [employer]pt[employer] code = COVNONPUI) SARS-CoV-2 assay.This nucleic acid amplification t est was developed and itsperformance characteristics determined by [facility]. Nucleic acid amplification t ests include PCRand TMA. This test has not be en FDA cleared or appr alfonso.This test has been a uthorized by FDA under an Emergency UseAuthorizatio n (EUA). This test is on ly authorized fort he duration of racheal e the declaration carline t circumstancesex ist justifying the authorization o f the emergency use o fin vitro diagnostic test s for detection of SA RS-CoV-2 virusand/or nish gnosis of COVID-19 infect ion under zlwekbn688(b)(1 ) of the Act, 21 U.S.C. 360bbb-3(b) (1) , unless theauthorizatio n is terminated or r evoked sooner.When nish gnostic testing is nega tive, the possibility of afalse negative result should be considered i n the contextof a pat ient's recent exposure s and the presence ofclin ical signs and sympt oms consistent with COVID-19. Anind ividual without symptom s of COVID-19 and wh o is notshedding LEAH S-CoV-2 virus would exp ect to have a negative (not detected) resul t in this assay.Performed At: [facility] [address] [id number] jose Naqvi MD Ph:[phone] URINALYSIS [id number] 13:23:00 Test Item Value Reference Range Interpretation Comments UA COLOR (test code = COLU) YELLOW YELLOW UA APPEARANCE (test code = CLEAR CLEAR APPU) UA GLUCOSE DIPSTICK (test code NEGATIVE MG/AL NEGATIVE = DGLUU) UA BILIRUBIN DIPSTICK (test NEGATIVE NEGATIVE code = BILU) UA KETONE DIPSTICK (test code NEGATIVE MG/DL NEGATIVE = KETU) UA SPECIFIC GRAVITY (test code 1.010 1.000-1.030 = SGU) UA BLOOD DIPSTICK (test code = NEGATIVE NEGATIVE MAGDI) UA PH DIPSTICK (test code = * 8.0 4.5-8.5 ARLETTE) UA PROTEIN DIPSTICK (test code NEGATIVE NEGATIVE = PROU) UA UROBILINOGEN DIPSTICK (test 0.2 EU/dL <=1.0 code = URO) UA NITRITE DIPSTICK (test code NEGATIVE NEGATIVE = ANJELICA) UA LEUKOCYTE ESTERASE DIPSTICK TRACE NEGATIVE A (test code = LEUU) UA WBC (test code = WBCU) 0-3 /HPF 0-3 UA RBC (test code = RBCU) 0-3 /HPF 0-3 UA EPITHELIAL CELLS (test code NONE SEEN /LPF NONE-FEW = EPIU) UA BACTERIA (test code = BACU) NEGATIVE /HPF NEGATIVE LACTIC ACID [id number] 13:13:00 Test Item Value Reference Range Interpretation Comments LACTIC ACID POC (test code = 0.78 mmol/L 0.36-1.25 N LACTP) URINALYSIS [id number] 12:56:00 Test Item Value Reference Range Interpretation Comments UA COLOR (test code = COLU) YELLOW YELLOW UA APPEARANCE (test code = CLEAR CLEAR APPU) UA GLUCOSE DIPSTICK (test code NEGATIVE MG/AL NEGATIVE = DGLUU) UA BILIRUBIN DIPSTICK (test NEGATIVE NEGATIVE code = BILU) UA KETONE DIPSTICK (test code NEGATIVE MG/DL NEGATIVE = KETU) UA SPECIFIC GRAVITY (test code 1.010 1.000-1.030 = SGU) UA BLOOD DIPSTICK (test code = NEGATIVE NEGATIVE MAGDI) UA PH DIPSTICK (test code = * 8.0 4.5-8.5 ARLETTE) UA PROTEIN DIPSTICK (test code NEGATIVE NEGATIVE = PROU) UA UROBILINOGEN DIPSTICK (test 0.2 EU/dL <=1.0 code = URO) UA NITRITE DIPSTICK (test code NEGATIVE NEGATIVE = ANJELICA) UA LEUKOCYTE ESTERASE DIPSTICK TRACE NEGATIVE A (test code = LEUU) UA WBC (test code = WBCU) /HPF 0-3 UA RBC (test code = RBCU) /HPF 0-3 UA EPITHELIAL CELLS (test code /LPF NONE-FEW = EPIU) UA BACTERIA (test code = BACU) /HPF NEGATIVE LIVER FUNCTION [id number] 12:04:00 Test Item Value Reference Range Interpretation Comments TOTAL PROTEIN (test 7.5 g/dL 6.0-8.3 N code = PROT) ALBUMIN (test code = 4.6 g/dL 3.2-5.5 N ALB) BILIRUBIN TOTAL 0.6 mg/dL 0.2-1.0 N W-jjtedd-r-b enzoquinone (test code = BILT) imine (NA PQI), a metabolite ofacetaminophen (paracetamol), may generate errone ously lowresults in s amples for patients th at have taken toxic dos esof acetaminophen (paracetamol). BILIRUBIN DIRECT 0.1 mg/dL 0.0-0.2 N N-acetyl-p- benzoquinone (test code = BILD) imine (NA PQI), a metabolite ofacetaminophen (paracetamol), may generate errone ously lowresults in s amples for patients th at have taken toxic dos esof acetaminophen (paracetamol). BILIRUBIN INDIRECT 0.5 mg/dL (test code = BILIND) SGOT/AST (test code 27 UNITS/L 10-42 N = AST) SGPT/ALT (test code 18 UNITS/L 10-40 N = ALT) ALKALINE PHOSPHATASE 45 UNITS/L 34-104 N (test code = ALKP) [id number] 12:04:00 Test Item Value Reference Range Interpretation Comments LIPASE (test code = LIP) 61 UNITS/L 22-151 N PROTHROMBIN [id number] 11:35:00 Test Item Value Reference Range Interpretation Comments PROTHROMBIN TIME 10.8 SECONDS 9.5-12.9 N PATIENT (test code = PTP) INTERNATIONAL NORMAL 1.0 0.85-1.15 N The INR is to be used RATIO (test code = only for monitoring INR) ORAL ANTICOAGULANTTH ERAPY. Indication INR Value1. Prophylaxis/debra atment of: Venous Thro mbosis, Pulmonary Embol ism 2.0 - 3.02. Prevent ion of systemic emboli sm from: Tissue he art valves 2.0 - 3. 0 Acute myocardial infa rction (to present sys temic embolism)* 2.0 - 3.0 Valvular heart disease 2.0 - 3.0 Atria l fibrillation 2. 0 - 3.03. Mechanica l prosthetic valv es (high risk) 2. 5 - 3.5 * If oral anticoagulant t herapy is elected to preventrecurren t myocardial infa rction, an INR of 2.5-3 .5 isrecommended, consistent with Food and Drug Administrationr ecommen dations. CBC W/AUTO [id number] 11:34:00 Test Item Value Reference Range Interpretation Comments WHITE BLOOD CELL (test code = WBC) 6.78 K/mm3 5.0-12.0 N RED BLOOD CELL (test code = RBC) 4.19 M/mm3 4.20-5.40 L HEMOGLOBIN (test code = HGB) 13.4 G/DL 12.0-16.0 N HEMATOCRIT (test code = HCT) 41.6 % 36.0-46.0 N MEAN CELL VOLUME (test code = MCV) 99 fL 81-99 N MEAN CELL HGB (test code = MCH) 32.0 PGM 27-31 H MEAN CELL HGB CONCENTRATION (test 32.2 G/DL 33-37 L code = MCHC) RED CELL DISTRIBUTION WIDTH (test 11.9 % 11.6-16.2 N code = RDW) PLATELET COUNT (test code = PLT) 257 K/mm3 130-400 N MEAN PLATELET VOLUME (test code = 10.8 fl 7.4-10.4 H MPV) NEUTROPHIL % (test code = NT%) 67.5 % 43-65 H IMMATURE GRANULOCYTE % (test code 0.3 % 0.0-2.0 N = IG%) LYMPHOCYTE % (test code = LY%) 22.1 % 20.5-45.5 N MONOCYTE % (test code = MO%) 8.0 % 5.5-11.7 N EOSINOPHIL % (test code = EO%) 1.5 % 0.9-2.9 N BASOPHIL % (test code = BA%) 0.6 % 0.2-1.0 N NUCLEATED RBC % (test code = 0.0 % 0-1.0 N NRBC%) NEUTROPHIL # (test code = NT#) 4.58 K/mm3 2.2-4.8 N LYMPHOCYTE # (test code = LY#) 1.50 K/mm3 1.3-2.9 N MONOCYTE # (test code = MO#) 0.54 K/mm3 0.3-0.8 N EOSINOPHIL # (test code = EO#) 0.10 K/MM3 0.0-0.2 N BASOPHIL # (test code = BA#) 0.04 K/mm3 0.0-0.1 N TROPONIN I [id number] 11:28:00 Test Item Value Reference Range Interpretation Comments TROPONIN I RAPID 0.00 ng/mL 0.00-0.08 N ISTAT TROP ONIN I (test code = CRITERIA0.00-0. 08 ng/mL - TROPIRAP) Negative>0.08 n g/mL - Positive The us e of serial sampling and te sting protocol is are commended practice.An samuel vated troponin level alone is often not suffi cient fordiagnosis of myocardial infarction. Tro ponin results obtaine d by different assay s may vary.Evaluation of the extent of myoca rdial damage based on increase of troponin would be valid only if similar methodology is used. - XR CHEST 1 [id number] 11:23:00Patient Name: VEENA HULL Unit No: [id number] EXAMS: CPT: [id number] XR CHEST 1 V [id number] Comparison study: 03/07/2016 History: CODE SEPSIS CHEST 1 VIEW FINDINGS: The lungs are clear. The heartsize is magnified by the AP technique. The pulmonary vasculature is within normal limits. No pneumothorax or pleural effusion is present. Thoracic scoliosis is present. IMPRESSION: 1. No acute abnormality is identified. at 1123 Reported and signed by: Brad Marshall MD CC: Joo Latham DO; Yung White MD Technologist: Michael Thompson Time: DAP (Gy m2): Air Kerma (mGy): Trscr Dt/Tm: 03/06/2019 (1123) by:[email or web address] Orig Print D/T: S: 03/06/2019 (1126) BATCH NO: N/A Name: VEENA HULL [facility] [place] Phys: Joo Cadet DO [address] [facility] : 1935 Age: 83 Sex: F [place] [address] Loc: T.ERS Exam Date: 03/06/2019 Status: REG ER PH: FAX: PAGE 1 Signed ReportLACTIC ACID [id number] 11:21:00 Test Item Value Reference Range Interpretation Comments LACTIC ACID POC (test code = 2.28 mmol/L 0.36-1.25 H LACTP) BNP [id number] 11:15:00 Test Item Value Reference Range Interpretation Comments BNP RAPID (test code = BNPRAP) 71 pg/mL 0.0-100.0 N CHEMISTRY 8 [id number] 11:09:00 Test Item Value Reference Range Interpretation Comments SODIUM POC (test code = NAP) mmol/L 138-146 N POTASSIUM POC (test code = KP) mmol/L 3.5-4.9 N CHLORIDE POC (test code = CLP) mmol/L 98-109 CO2 POC (test code = CO2P) mmol/L 24-29 IONIZED CALCIUM POC (test code = mmol/L 1.10-1.32 N CAIP) GLUCOSE POC (test code = GLUP) MG/DL 70-105 H BUN POC (test code = BUNP) mg/dL 8-26 H CREATININE POC (test code = CREATP) mg/dL 0.6-1.3 H GLOMERULAR FILTRATION RATE POC (test 31 32-75 L code = GFRP) CHEMISTRY 8 [id number] 11:09:00 Test Item Value Reference Range Interpretation Comments SODIUM POC (test code = NAP) 139 mmol/L 138-146 N POTASSIUM POC (test code = KP) 4.2 mmol/L 3.5-4.9 N CHLORIDE POC (test code = CLP) 101 mmol/L 98-109 N CO2 POC (test code = CO2P) 28 mmol/L 24-29 N IONIZED CALCIUM POC (test code = 1.17 mmol/L 1.10-1.32 N CAIP) GLUCOSE POC (test code = GLUP) 136 MG/DL 70-105 H BUN POC (test code = BUNP) 31 mg/dL 8-26 H CREATININE POC (test code = 1.6 mg/dL 0.6-1.3 H CREATP) GLOMERULAR FILTRATION RATE POC 31 32-75 L (test code = GFRP)
[2023-01-04 19:26] LABS: Hematocrit 40.1 % (36.0-45.0); Lymphocytes % 38.7 % (15.3-44.8); MCV 97.3 fL (80-100); MPV 8.2 fL (7.6-11.3); Platelets 158 thou/uL (152-406); RBC Red Blood Cell Count 4.12 M/uL (3.86-4.86)
[2023-01-04] MEDS ORDERED: TENECTEPLASE 50 MG/10 ML VIAL IV ONE (19:41)
--- NOTE | 2023-01-04 19:43 | RAD REPORT ---
EXAM DESCRIPTION: CT - Ct Stroke Brain Wo Cont - 01/04/2023 7:26 pm CLINICAL HISTORY: Confusion/alteration of awareness COMPARISON: none TECHNIQUE: Computed axial tomography of the head was obtained. All CT scans are performed using dose optimization technique as appropriate and may include automated exposure control or mA/KV adjustment according to patient size. FINDINGS: An intracranial bleed is not seen . The ventricles are normal in caliber. No extra-axial fluid collection is noted. Mild to moderate low-density within periventricular, deep and subcortical white matter likely ischemi c changes secondary to small vessel disease 2.5 centimeter low-density area left parietal lobe white matter Fluid within the sinuses/ mastoids is not seen. IMPRESSION: 2.5 centimeter low-density area left parietal lobe probably an infarct. Age is indetermi bereket. Further evaluation with MRI would be helpful Dr Romero of the emergency room was notified at 7:39 p.m. January 04, 2023
[2023-01-04 19:45] LABS: Protime INR 0.93
[2023-01-04 19:46] LABS: Potassium 3.8 mEq/L (3.5-5.1)
--- NOTE | 2023-01-04 19:49 | RAD REPORT ---
EXAM DESCRIPTION: Jenna Single View01/04/2023 7:42 pm CLINICAL HISTORY: Chest pain COMPARISON: none FINDINGS: The lungs appear clear of acute infiltrate. The heart is mildly enlarged. Scoliosis involves thoracolumbar spine. Probable hiatal hernia. Lateral view of chest recommended
--- NOTE | 2023-01-04 20:16 | ER ---
Nurse's Notes [facility] Name: Marisela Chong Age: 87 yrs Sex: Female : 1935 Arrival Date: 01/04/2023 Time: 19:05 Bed 3 Private MD: Diagnosis: Cerebral infarction, unspecified;Aphasia following cerebral infarction;Altered mental status, unspecified;Hematologic transformation of the ischemic stroke, acute 1.6 cm intraparenchymal hemorrhage left posterior parietal lobe Presentation: 01/04 19:12 Chief complaint: Patient's son or daughter states: "we were eating and visiting and as6 everything was normal and then she just got this blank look in her eye and wasn't talking and became slow to respond". Coronavirus screen: At this time, the client does not indicate any symptoms associated with coronavirus-19. Ebola Screen: No symptoms or risks identified at this time. Initial Sepsis Screen: Does the patient meet any 2 criteria? No. Patient's initial sepsis screen is negative. Does the patient have a suspected source of infection? No. Patient's initial sepsis screen is negative. Risk Assessment: Do you want to hurt yourself or someone else? Patient reports no desire to harm self or others. Onset of symptoms was January 04, 2023 at 18:40. 19:12 Acuity: AMBROSE 2 as6 19:12 Method Of Arrival: Wheelchair as6 Historical: - Allergies: 19:12 No Known Allergies; as6 - PMHx: 19:12 Hypertensive disorder; Anxiety; as6 - PSHx: 19:12 back; as6 - Immunization history:: Adult Immunizations up to date. - Social history:: Smoking status: Patient denies any tobacco usage or history of. - Family history:: not pertinent. - Hospitalizations: : No recent hospitalization is reported. Screenin:32 [facility] ED Fall Risk Assessment (Adult) Confusion or Disorientation Yes (5 pts) as6 Score/Fall Risk Level 3 or more points = High Risk. Abuse screen: Denies threats or abuse. Denies injuries from another. Nutritional screening: No deficits noted. Tuberculosis screening: No symptoms or risk factors identified. Assessment: 19:08 VAN Scoring: Arm Drift: Patients demonstrates NO arm weakness. Patient is VAN Negative. mb9 Visual Disturbance: No visual disturbance noted. Aphasia: Patient exhibits both expressive and receptive aphasia. Provider notified of +VAN scoring. 19:15 General: Appears uncomfortable, Behavior is cooperative. Pain: Denies pain. Neuro: mb9 Del Castillo Agitation-Sedation Scale (RASS): 0 - Alert and Calm Level of Consciousness is awake, confused, Oriented to none. Neuro: Research Epidemiologist are equal bilaterally Moves all extremities. Gait is steady, Speech with expressive aphasia noted, Facial symmetry appears normal, Pupils are PERRLA, Intact. Cardiovascular: Heart tones S1 S2 present Patient's skin is warm and dry. Respiratory: Airway is patent Respiratory effort is even, unlabored, Respiratory pattern is regular, symmetrical, Breath sounds are clear bilaterally. GI: Abdomen is round non-distended, Bowel sounds present X 4 quads. Abd is soft and non tender X 4 quads. : No signs and/or symptoms were reported regarding the genitourinary system. EENT: No signs and/or symptoms were reported regarding the EENT system. Derm: Skin is pink, warm \\T\\ dry. Musculoskeletal: Range of motion: intact in all extremities. 19:17 Reassessment: pt taken to CT via stretcher accompanied by nurse. mb9 19:29 Reassessment: TNK consent form signed by pts family. mb9 19:30 Reassessment: pt failed PO challenge. ERP notified. mb9 19:40 TNKase (Tenecteplase) Screening: Indications: Definite evidence of stroke, ischemic, mb9 embolic, or hypertensive: Yes. Treatment will start within 4.5 hours onset of symptoms: Yes. No evidence of intracranial hemorrhage or CT of head and no evidence of peripheral hemorrhage or recent CVA: Yes. Consent for thrombolytic therapy: Yes. 20:00 Reassessment: See stroke and TNK Administration/Assessment Flow sheet for more mb9 information. 20:13 Reassessment: pt taken to CT via stretcher. mb9 20:15 Reassessment: No changes from previously documented assessment. Patient and/or family mb9 updated on plan of care and expected duration. Pain level reassessed. 20:33 Reassessment: Pts SPO2 76% on RA. Placed pt on 3 l/min via nasal cannula, SPO2 now at mb9 100%. ERP notified. 20:55 General: pt having seizure like activity, facial twitching, staring off into distance, as6 not able to answer any questions or making eye contact. Dr. Narayan notified and at bedside . 21:30 Reassessment: No changes from previously documented assessment. Patient and/or family as6 updated on plan of care and expected duration. Pain level reassessed. 21:50 Respiratory: Ventilator assessment: ET Tube: 7.5 Ventilator Mode: Assist Control (AC) as6 Tidal Volume: 510 Respiratory Rate: 16 FiO2: 100%. PEEP: 5 HOB > 30 degrees. 21:50 Neuro: Del Castillo Agitation-Sedation Scale (RASS): -2 Light sedation Level of as6 Consciousness is intubated and properly sedated . 22:00 Reassessment: No changes from previously documented assessment. Patient and/or family as6 updated on plan of care and expected duration. Pain level reassessed. 22:00 Reassessment: Dr. Narayan speaking to family at bedside. mb9 22:30 Reassessment: Report given to [facility] nurse April RN. mb9 Vital Signs: 19:12 BP 180 / 74; Pulse 68; Resp 19 S; Pulse Ox 96% on R/A; as6 19:29 Weight 65 kg (M); as6 19:49 BP 130 / 91; Pulse 61; Resp 18; Temp 98.2; Pulse Ox 97% on R/A; Height 5 ft. 4 in. ; mb9 20:07 BP 170 / 83; Pulse 67; Resp 16; Pulse Ox 97% on R/A; mb9 21:00 BP 148 / 60; Pulse 95; Resp 18; Pulse Ox 99% on 3 lpm NC; mb9 21:15 BP 172 / 88; Pulse 87; Resp 18; Pulse Ox 100% on ETT vent; FiO2 100 %; mb9 21:40 BP 197 / 101; Pulse 87; Resp 18; Pulse Ox 100% on ETT vent; FiO2 100 %; mb9 21:45 BP 180 / 91; Pulse 85; Resp 18; Pulse Ox 100% on ETT vent; FiO2 100 %; mb9 21:58 BP 158 / 83; Pulse 91; Resp 18; Pulse Ox 100% on ETT vent; FiO2 100 %; mb9 22:15 BP 141 / 70; Pulse 88; Resp 18; Pulse Ox 100% on ETT vent; FiO2 100 %; mb9 22:31 BP 138 / 80; Pulse 88; Resp 18; Pulse Ox 100% on ETT vent; FiO2 100 %; mb9 [place] Coma Score: 21:00 Eye Response: none(1). Motor Response: flexion (decorticate)(3). Verbal Response: as6 incomprehensible(2). Total: 6. NIH Stroke Scale Scores: 19:05 NIHSS Score: 8 mb9 19:16 NIHSS Score: 8 rn eligibility Course: 19:09 Patient arrived in ED. jj6 19:11 Leo Romero MD is Attending Physician. rn 19:12 Arm band placed on. as6 19:14 Triage completed. as6 19:15 Inserted saline lock: 22 gauge in right forearm, using aseptic technique. Blood mb9 collected. 19:20 EKG done, by ED staff, reviewed by Leo Romero MD. mb9 19:22 Morena Ruiz, RN is Primary Nurse. mb9 19:23 Basic Metabolic Panel Sent. mb9 19:23 CBC with Diff Sent. mb9 19:23 High Sensitivity Troponin Sent. mb9 19:23 Protime (+inr) Sent. mb9 19:23 Ptt, Activated Sent. mb9 19:28 CT Stroke Brain w/o Contrast In Process Unspecified. EDMS 19:32 Placed in gown. Bed in low position. Call light in reach. Side rails up X2. Adult w/ as6 patient. 19:43 Stroke CXR 1 View In Process Unspecified. EDMS 19:55 Initiated transfer to [facility], spoke with Rebecca. wm 20:[address] In Process Unspecified. EDMS 20:[address] In Process Unspecified. EDMS 20:22 Pt accepted for transfer to [facility] Rm: [id number] Marks \\T\\ 2008 per Rebecca Leal. wm 20:34 Patient transferred, IV remains in place. mb9 20:48 EMS accepted for transport, ETA \\T\\ 2099. wm 20:57 Inserted saline lock: 22 gauge in left antecubital area, using aseptic technique. as6 21:05 Assisted provider with intubation using 7.5 mm ETT via oral route. ET tube secured at as6 25cm at the lips. Set up intubation tray. Intubated by Darrel Narayan MD Placement verified by CO2 detector w/ + color change, auscultating bilateral breath sounds, CXR, Patient tolerated well. 21:06 Attending Physician role handed off by Leo Romero MD sp4 21:06 Darrel Narayan MD is Attending Physician. sp4 21:08 NGT: inserted 18 Fr. other oral verified placement of air over stomach, Placement as6 verified by X-ray, Patient tolerated well. 21:13 Mea cath inserted, using sterile technique, 16 Fr., by ED staff, balloon inflated, to as6 gravity drainage, returned clear yellow urine. Patient tolerated well. 21:29 Chest Single View XRAY In Process Unspecified. EDMS 21:35 CT Head Brain wo Cont In Process Unspecified. EDMS 21:56 Pt had a changed in condition that required [facility], transport canceled and wm [facility] called and accepted with an ETA \\T\\ 2210. Administered Medications: 19:44 Drug: TNK FOR STROKE - Tenecteplase IV 0.25 mg/kg IV at per protocol once; MAX mb9 DOSE 25 mg, IVP over 5 seconds {Co-Signature: as6 (Long Lainez RN).} Route: IV; Rate: per protocol; Site: right forearm; 20:00 Follow up: Response: No adverse reaction; IV Status: Completed infusion mb9 21:00 Drug: Ativan IVP 1 mg IVP once Route: IVP; Site: right forearm; as6 21:59 Follow up: Response: No adverse reaction mb9 21:03 Drug: Etomidate IVP 40 mg IVP once Route: IVP; Site: left antecubital; as6 21:59 Follow up: Response: No adverse reaction mb9 21:04 Drug: Rocuronium IVP 100 mg IVP once Route: IVP; Site: left antecubital; as6 21:59 Follow up: Response: No adverse reaction mb9 21:25 Drug: Midazolam IVP or IV 0.01 mg/kg/h IV at calculated rate See Administration mb9 Instructions; (Standard concentration: 100 mg / 100 mL NS); Recommended max rate 0.1 mg/kg/hr; Titrate 0.01 mg/kg/hr as often as every 30 minutes to achieve goal (see titration policy); Goal parameter RASS 0 to -2 Route: IV; Rate: calculated rate; Site: right forearm; 22:33 Follow up: Response: No adverse reaction; IV Status: Infusion continued upon transfer mb9 21:49 Drug: niCARdipine IV 5 mg/hr IV at calculated rate continuous; (Standard concentration mb9 25 mg / 250 mL NS); Recommended max rate 15 mg/hr; Titrate 2.5 mg/hr as often as every 15 minutes to achieve goal (see titration policy); Goal parameter SBP less than 160 mmHg Route: IV; Rate: calculated rate; Site: left antecubital; 22:33 Follow up: Response: No adverse reaction; IV Status: Infusion continued upon transfer mb9 22:10 Drug: Keppra IV 1000 mg IV at bolus once Route: IV; Rate: bolus; Site: left antecubital;mb9 22:33 Follow up: Response: No adverse reaction; IV Status: Completed infusion mb9 Medication: 19:32 VIS not applicable for this client. as6 Point of Care Testing: Blood Glucose: 19:20 Blood Glucose: 105 mg/dL; as6 Ranges: Outcome: 20:16 ER care complete, transfer ordered by rn 22:32 Transferred by helicopter Transfer form completed. X-rays sent w/ patient. mb9 22:32 Condition: stable 22:32 Instructed on the need for transfer, 22:44 Patient left the ED. mb9 NIH Stroke Scale - NIH Stroke Score Date: 01/04/2023 Time: 19:05 Total Score = 8 10. Dysarthria (speech clarity - read or repeat words) - 1(Mild to Moderate) 11. Extinction and Inattention (visual/tactile/auditory/spatial/personal) - 0(No abnormality) 1a. Level of Consciousness (LOC) - 2(Not Alert, obtunded) 1b. Level of Consciousness (LOC) (Month \\T\\ Age) - 2(Neither) 1c. LOC Commands (Open \\T\\ Closes Eyes/Tennis Court Attendant) 2. Best Gaze (Lateral Gaze Paresis) - 1(Partial gaze palsy) 3. Visual Field Loss - 0(No visual loss) 4. Facial Palsy - 0(Normal) 5a. Left Arm: Motor (10-second hold) - 0(No drift) 5b. Right Arm: Motor (10-second hold) - 0(No drift) 6a. Left Leg: Motor (5-second hold - always test supine) - 0(No drift) 6b. Right Leg: Motor (5-second hold - always test supine) - 0(No drift) 7. Limb Ataxia (finger/nose \\T\\ heel/dimas - test with eyes open) - 0(Absent) 8. Sensory Loss (pinprick arms/legs/face) - 0(Normal) 9. Best Language: Aphasia (description/naming/reading) - 2(Severe aphasia) Initials: mb9 NIH Stroke Scale - NIH Stroke Score Date: 01/04/2023 Time: 19:16 Total Score = 8 10. Dysarthria (speech clarity - read or repeat words) - 1(Mild to Moderate) 11. Extinction and Inattention (visual/tactile/auditory/spatial/personal) - 0(No abnormality) 1a. Level of Consciousness (LOC) - 0(Alert) 1b. Level of Consciousness (LOC) (Month \\T\\ Age) - 2(Neither) 1c. LOC Commands (Open \\T\\ Closes Eyes/Tennis Court Attendant) - 2(Neither) 2. Best Gaze (Lateral Gaze Paresis) - 1(Partial gaze palsy) 3. Visual Field Loss - 0(No visual loss) 4. Facial Palsy - 0(Normal) 5a. Left Arm: Motor (10-second hold) - 0(No drift) 5b. Right Arm: Motor (10-second hold) - 0(No drift) 6a. Left Leg: Motor (5-second hold - always test supine) - 0(No drift) 6b. Right Leg: Motor (5-second hold - always test supine) - 0(No drift) 7. Limb Ataxia (finger/nose \\T\\ heel/dimas - test with eyes open) - 0(Absent) 8. Sensory Loss (pinprick arms/legs/face) - 0(Normal) 9. Best Language: Aphasia (description/naming/reading) - 2(Severe aphasia) Initials: rn Signatures: Dispatcher [employer] EDMS Leo Romero MD MD rn Marsh, Wendy wm Jeffries, Jennifer jj6 Long Lainez RN RN as6 Morena Ruiz RN RN mb9 Darrel Narayan MD MD sp4 Long Lainez RN as6 Corrections: (The following items were deleted from the chart) 19:39 19:37 NIHSS Score: 7 mb9 mb9 20:28 20:26 Pt accepted for transfer by Dr. Franklin gurrola wm 21:15 20:15 No provider procedures requiring assistance completed. mb9 as6 01/05 00:37 01/04 22:00 Reassessment: No changes from previously documented assessment. as6 Patient and/or family updated on plan of care and expected duration. Pain level reassessed. Patient is alert, oriented x 3, equal unlabored respirations, skin warm/dry/pink. mb9 01/05 00:37 01/04 21:30 Reassessment: No changes from previously documented assessment. as6 Patient and/or family updated on plan of care and expected duration. Pain level reassessed. Patient is alert, oriented x 3, equal unlabored respirations, skin warm/dry/pink. mb9 01/05 12:32 01/04 20:15 Reassessment: No changes from previously documented assessment. mb9 Patient and/or family updated on plan of care and expected duration. Pain level reassessed. Patient is alert, oriented x 3, equal unlabored respirations, skin warm/dry/pink. mb9
--- NOTE | 2023-01-04 20:16 | EDPHYS ---
Physician Documentation [facility] Name: Marisela Chong Age: 87 yrs Sex: Female : 1935 Arrival Date: 01/04/2023 Time: 19:05 Bed 3 Private MD: ED Physician Darrel Narayan HPI: 01/04 20:10 This 87 yrs old Female presents to ER via Wheelchair with complaints of AMS. rn 20:10 The patient presents to the emergency department with a speech or higher order brain rn function problem. Onset: The symptoms/episode began/occurred 30 minutes prior to arrival, approximately 6:40 PM. Associated signs and symptoms: Pertinent positives: altered mental status, Pertinent negatives: fever, seizure, syncope. Severity of symptoms: At their worst the symptoms were moderate in the emergency department the symptoms are unchanged. Current symptoms: confusion, decreased level of consciousness. The patient has not experienced similar symptoms in the past. Family reports they were playing dominoes and having a full conversation when 30 minutes prior to arrival noted an abrupt change in mental status, patient could not express herself and seemed frustrated, not making sense. No seizure activity. No trauma. No history of stroke.. Historical: - Allergies: 19:12 No Known Allergies; as6 - PMHx: 19:12 Hypertensive disorder; Anxiety; as6 - PSHx: 19:12 back; as6 - Immunization history:: Adult Immunizations up to date. - Social history:: Smoking status: Patient denies any tobacco usage or history of. - Family history:: not pertinent. - Hospitalizations: : No recent hospitalization is reported. ROS: 20:10 Unable to obtain ROS due to altered mental status, rn 21:08 Constitutional: Negative for fever, chills, and weight loss, sp4 Exam: 20:10 Constitutional: This is a well developed, well nourished patient who is awake, alert rn Head/Face: Normocephalic, atraumatic. Eyes: Right eye deviation Cardiovascular: Regular rate, irregular rhythm Respiratory: No increased work of breathing, no retractions or nasal flaring. Abdomen/GI: Soft, non-tender MS/ Extremity: Pulses equal, no cyanosis. Neurovascular intact. Full, normal range of motion. Equal circumference. Neuro: Awake and alert, does not follow commands, misses level of consciousness questions. Forced right eye deviation. No focal weakness. Withdraws from pain in all 4 extremities. Slight tremor in the right upper extremity. Vital Signs: 19:12 BP 180 / 74; Pulse 68; Resp 19 S; Pulse Ox 96% on R/A; as6 19:29 Weight 65 kg (M); as6 19:49 BP 130 / 91; Pulse 61; Resp 18; Temp 98.2; Pulse Ox 97% on R/A; Height 5 ft. 4 in. ; mb9 20:07 BP 170 / 83; Pulse 67; Resp 16; Pulse Ox 97% on R/A; mb9 21:00 BP 148 / 60; Pulse 95; Resp 18; Pulse Ox 99% on 3 lpm NC; mb9 21:15 BP 172 / 88; Pulse 87; Resp 18; Pulse Ox 100% on ETT vent; FiO2 100 %; mb9 21:40 BP 197 / 101; Pulse 87; Resp 18; Pulse Ox 100% on ETT vent; FiO2 100 %; mb9 21:45 BP 180 / 91; Pulse 85; Resp 18; Pulse Ox 100% on ETT vent; FiO2 100 %; mb9 21:58 BP 158 / 83; Pulse 91; Resp 18; Pulse Ox 100% on ETT vent; FiO2 100 %; mb9 22:15 BP 141 / 70; Pulse 88; Resp 18; Pulse Ox 100% on ETT vent; FiO2 100 %; mb9 22:31 BP 138 / 80; Pulse 88; Resp 18; Pulse Ox 100% on ETT vent; FiO2 100 %; mb9 NIH Stroke Scale Scores: 19:05 NIHSS Score: 8 mb9 19:16 NIHSS Score: 8 rn [place] Coma Score: 21:00 Eye Response: none(1). Motor Response: flexion (decorticate)(3). Verbal Response: as6 incomprehensible(2). Total: 6. Procedures: 21:08 Intubation: Ventilated with 100% NRB prior to procedure. O2 saturation prior to sp4 procedure was 100 %. Intubated Moro scope assisted intubation, indication for acute seizure after TPN suspicion for intracranial hemorrhage using # 4 Dina blade with 7.5 mm ETT. was successful on first attempt. Ventilated with Ambu bag. ventilator. Tube secured with ETT maldonado at center of mouth measured 25 cm at lip. Placement verified by CXR, CO2 detector with (+) color change, auscultating bilateral breath sounds, O2 saturation after procedure was 100 %. Patient tolerated well, Patient had to be intubated emergently for acute seizure after TNK, suspect intracranial hemorrhage patient was sterilely has to be secured prior to his CT. we will obtain emergent CT head. MDM: 19:11 Patient medically screened. rn 19:30 ED course: After talking with family there was a sudden onset change in mental status. rn They state she was sitting and playing dominoes than before they knew it she was not making sense or talking to them. Reports onset 30 minutes prior to arrival. I went through all TNK indications as well as contraindications and patient meets criteria. Waiting on radiology callback for CT head results. Family has consented to TNK. 19:41 ED course: Radiologist Dr. Clement stroke negative for hemorrhage but does show 2.5 cm rn hypodense lesion in the left parietal region that he is not sure if acute or chronic. I consulted with Dr. Mario regarding these findings and clinical findings and agrees that patient is a TNKase candidate given abrupt clinical change per family and CT findings could be chronic. No contraindications for TNKase and patient's family consents for TNKase. TNKase ordered. 20:03 ED course: Patient accepted for transfer to [facility] neuro ICU. Neuro tutoring manager rn requests CT angio head and neck prior to transfer.. 20:10 Data reviewed: vital signs, nurses notes, lab test result(s), EKG, radiologic studies, rn CT scan, and as a result, I will admit patient. Consideration of Admission/Observation Patient was admitted/placed on observation. Escalation of care including admission/observation considered. Management of patient was discussed with the following: Pulper Tender: Dr. Mario, recommends transfer for neuro ICU care.. I considered the following discharge prescriptions or medication management in the emergency department Medications were administered in the Emergency Department. See MAR. Independent interpretation of the following test(s) in the Emergency Department CT Scan: My interpretation is CT head images negative for hemorrhage per my interpretation. Counseling: I had a detailed discussion with the patient and/or guardian regarding the historical points, exam findings, and any diagnostic results supporting the discharge/admit diagnosis, lab results, radiology results, the need for further work-up and treatment in the hospital, the need to transfer to another facility, for higher level of care. Response to treatment: the patient's symptoms have mildly improved after treatment, and as a result, I will admit patient. ED course: I personally spent 40 minutes engaged in work directly related to the individual patient's care. This does not include any time spent performing procedures. The patient has been deemed critically ill because of moderate cerebral infarction requiring TNKase thrombolytics.. 21:10 ED course: Patient has developed acute seizure after TNK administration. With suspect sp4 acute intracranial hemorrhage secondary to TNK. Patient warrants emergent CT over the brain, patient was given Ativan 1 mg that has aborted the seizure. Seizure was generalized tonic-clonic. Patient remains unresponsive after the seizure was aborted, at this time patient warrants secure airway prior for CT head. At this time we will cancel CT angio head and neck. 22:00 ED course: CT head repeat - EXAM DESCRIPTION: CT - Head Brain Wo Cont - 01/04/2023 9:33 sp4 pm CLINICAL HISTORY: Seizure COMPARISON: January 04, 2023 TECHNIQUE: Computed axial tomography of the head was obtained. IV contrast was not requested. All CT scans are performed using dose optimization technique as appropriate and may include automated exposure control or mA/KV adjustment according to patient size. FINDINGS: 1.6 centimeter bleed has developed within the suspected left parietal lobe infarction. The ventricles are normal in caliber No shift of midline structures. No other significant change IMPRESSION: Hemorrhagic conversion of suspected left parietal lobe infarction Examination was discussed with Dr. Narayan 9:38 p.m. January 04, 2023. ED course: CT confirmed the patient has now 1.6 cm hemorrhagic focus left posterior parietal lobe. Patient airway was secured patient is on a ventilator at this time with Versed sedation, patient was ordered IV Keppra, we have communicated with neuro tutoring manager at [facility]. Patient is still accepted at [facility] to neuro ICU, neuro tutoring manager has requested a cryoprecipitate prior to transfer. Patient at this time will be stable for transfer with aeromedical transport. Patient was started on Nicardipine IV for blood pressure control. 1 unit of cryoprecipitate will be administered prior to departure. . 22:09 ED course: Chest X ray - after intubation - EXAM DESCRIPTION: RADChest Single sp4 View01/04/2023 9:27 pm CLINICAL HISTORY: Device placement endotracheal tube placement IMPRESSION: An endotracheal tube has been inserted with its in the right mainstem bronchus Nasogastric tube is coiled within the gastric fundus. The tip lies 1 centimeter from the GE junction - ET tube was pulled back 2 cm . . 01/04 19:16 Order name: Basic Metabolic Panel; Complete Time: 19:56 rn 01/04 19:16 Order name: CBC with Diff; Complete Time: 20:09 rn 01/04 19:16 Order name: High Sensitivity Troponin; Complete Time: 19:56 rn 01/04 19:16 Order name: Protime (+inr); Complete Time: 19:56 rn 01/04 19:16 Order name: Ptt, Activated; Complete Time: 19:56 rn 01/04 19:30 Order name: Glucose, Ancillary Testing; Complete Time: 19:35 EDMS 01/04 21:56 Order name: ABO/RH typing [facility] 01/04 21:56 Order name: Cryoprecipitate [facility] 01/04 19:16 Order name: CT Stroke Brain w/o Contrast; Complete Time: 19:56 rn 01/04 19:16 Order name: Stroke CXR 1 View; Complete Time: 19:56 rn 01/04 20:02 Order name: Head Angio CT; Complete Time: 20:39 rn 01/04 20:02 Order name: Neck Angio CT; Complete Time: 20:38 rn 01/04 21:06 Order name: CT Head Brain wo Cont; Complete Time: 04:20 [facility] 01/04 21:11 Order name: Chest Single View XRAY; Complete Time: 21:43 [facility] 01/04 19:16 Order name: EKG; Complete Time: 19:17 rn 01/04 19:16 Order name: Accucheck; Complete Time: 19:20 rn 01/04 19:16 Order name: Cardiac monitoring; Complete Time: 19:21 rn 01/04 19:16 Order name: EKG - Nurse/Tech; Complete Time: 19:35 rn 01/04 19:16 Order name: IV Saline Lock; Complete Time: 19:20 rn 01/04 19:16 Order name: Labs collected and sent; Complete Time: 19:21 rn 01/04 19:16 Order name: NPO; Complete Time: 19:21 rn 01/04 19:16 Order name: O2 Per Protocol; Complete Time: 19:21 rn 01/04 19:16 Order name: O2 Sat Monitoring; Complete Time: 19:21 rn 01/04 19:16 Order name: Stroke Swallow Screen; Complete Time: 19:46 rn 01/04 21:07 Order name: Intubation Setup; Complete Time: 21:13 sp4 01/04 21:11 Order name: NG Tube; Complete Time: 21:13 sp4 01/04 21:26 Order name: Mae; Complete Time: 21:26 mb9 Administered Medications: 19:44 Drug: TNK FOR STROKE - Tenecteplase IV 0.25 mg/kg IV at per protocol once; MAX mb9 DOSE 25 mg, IVP over 5 seconds {Co-Signature: as6 (Long Lainez RN).} Route: IV; Rate: per protocol; Site: right forearm; 20:00 Follow up: Response: No adverse reaction; IV Status: Completed infusion mb9 21:00 Drug: Ativan IVP 1 mg IVP once Route: IVP; Site: right forearm; as6 21:59 Follow up: Response: No adverse reaction mb9 21:03 Drug: Etomidate IVP 40 mg IVP once Route: IVP; Site: left antecubital; as6 21:59 Follow up: Response: No adverse reaction mb9 21:04 Drug: Rocuronium IVP 100 mg IVP once Route: IVP; Site: left antecubital; as6 21:59 Follow up: Response: No adverse reaction mb9 21:25 Drug: Midazolam IVP or IV 0.01 mg/kg/h IV at calculated rate See Administration mb9 Instructions; (Standard concentration: 100 mg / 100 mL NS); Recommended max rate 0.1 mg/kg/hr; Titrate 0.01 mg/kg/hr as often as every 30 minutes to achieve goal (see titration policy); Goal parameter RASS 0 to -2 Route: IV; Rate: calculated rate; Site: right forearm; 22:33 Follow up: Response: No adverse reaction; IV Status: Infusion continued upon transfer mb9 21:49 Drug: niCARdipine IV 5 mg/hr IV at calculated rate continuous; (Standard concentration mb9 25 mg / 250 mL NS); Recommended max rate 15 mg/hr; Titrate 2.5 mg/hr as often as every 15 minutes to achieve goal (see titration policy); Goal parameter SBP less than 160 mmHg Route: IV; Rate: calculated rate; Site: left antecubital; 22:33 Follow up: Response: No adverse reaction; IV Status: Infusion continued upon transfer mb9 22:10 Drug: Keppra IV 1000 mg IV at bolus once Route: IV; Rate: bolus; Site: left antecubital;9 22:33 Follow up: Response: No adverse reaction; IV Status: Completed infusion mb9 Point of Care Testing: Blood Glucose: 19:20 Blood Glucose: 105 mg/dL; as6 Ranges: Critical Glucose Levels:Adult <50 mg/dl or >400 mg/dl <40 mg/dl or >180 mg/dl Disposition Summary: 01/04/23 20:16 Transfer Ordered Notes: Transfer Location: [facility] rn Reason: Higher level of care rn Condition: Stable rn Problem: new rn Symptoms: have improved rn Accepting Physician: (01/04/23 22:44) 9 Diagnosis - Cerebral infarction, unspecified rn - Aphasia following cerebral infarction rn - Altered mental status, unspecified rn - Hematologic transformation of the ischemic stroke, acute 1.6 cm intraparenchymal sp4 hemorrhage left posterior parietal lobe Forms: - Medication Reconciliation Form rn - SBAR form morning show host time excluding procedures: 20:10 Critical care time: Bedside Care: 35 minutes, Consultation: 5 minutes. Total time: 40 rn minutes NIH Stroke Scale - NIH Stroke Score Date: 01/04/2023 Time: 19:05 Total Score = 8 10. Dysarthria (speech clarity - read or repeat words) - 1(Mild to Moderate) 11. Extinction and Inattention (visual/tactile/auditory/spatial/personal) - 0(No abnormality) 1a. Level of Consciousness (LOC) - 2(Not Alert, obtunded) 1b. Level of Consciousness (LOC) (Month \T\ Age) - 2(Neither) 1c. LOC Commands (Open \T\ Closes Eyes/Theatre Director) 2. Best Gaze (Lateral Gaze Paresis) - 1(Partial gaze palsy) 3. Visual Field Loss - 0(No visual loss) 4. Facial Palsy - 0(Normal) 5a. Left Arm: Motor (10-second hold) - 0(No drift) 5b. Right Arm: Motor (10-second hold) - 0(No drift) 6a. Left Leg: Motor (5-second hold - always test supine) - 0(No drift) 6b. Right Leg: Motor (5-second hold - always test supine) - 0(No drift) 7. Limb Ataxia (finger/nose \T\ heel/dimas - test with eyes open) - 0(Absent) 8. Sensory Loss (pinprick arms/legs/face) - 0(Normal) 9. Best Language: Aphasia (description/naming/reading) - 2(Severe aphasia) Initials: mb9 NIH Stroke Scale - NIH Stroke Score Date: 01/04/2023 Time: 19:16 Total Score = 8 10. Dysarthria (speech clarity - read or repeat words) - 1(Mild to Moderate) 11. Extinction and Inattention (visual/tactile/auditory/spatial/personal) - 0(No abnormality) 1a. Level of Consciousness (LOC) - 0(Alert) 1b. Level of Consciousness (LOC) (Month \T\ Age) - 2(Neither) 1c. LOC Commands (Open \T\ Closes Eyes/Theatre Director) - 2(Neither) 2. Best Gaze (Lateral Gaze Paresis) - 1(Partial gaze palsy) 3. Visual Field Loss - 0(No visual loss) 4. Facial Palsy - 0(Normal) 5a. Left Arm: Motor (10-second hold) - 0(No drift) 5b. Right Arm: Motor (10-second hold) - 0(No drift) 6a. Left Leg: Motor (5-second hold - always test supine) - 0(No drift) 6b. Right Leg: Motor (5-second hold - always test supine) - 0(No drift) 7. Limb Ataxia (finger/nose \T\ heel/dimas - test with eyes open) - 0(Absent) 8. Sensory Loss (pinprick arms/legs/face) - 0(Normal) 9. Best Language: Aphasia (description/naming/reading) - 2(Severe aphasia) Initials: rn Signatures: Dispatcher [employer] Leo Melgar MD MD rn Slawson, Ashby, RN RN as6 Morena Ruiz RN RN mb9 Darrel Narayan MD MD Long Barreto RN as6 Corrections: (The following items were deleted from the chart) 19:28 19:17 Head Brain Wo Cont+CT.RAD.BENJA ordered. EDMS EDMS 20:14 20:10 ED course: I personally spent 35 minutes engaged in work directly related rn to the individual patient's care. This does not include any time spent performing procedures. The patient has been deemed critically ill because of moderate cerebral infarction requiring TNKase thrombolytics.. sonia 22:06 20:16 Dr. scott sp4 22:44 22:06 Dr. ferrari mb9
--- NOTE | 2023-01-04 20:36 | RAD REPORT ---
EXAM DESCRIPTION: Humza Angio01/04/2023 8:19 pm CLINICAL HISTORY: CVA COMPARISON: None TECHNIQUE: 100 cc Isovue [address] angiogram of the neck was obtained. 3D MIPS reconstruction performed. All CT scans are performed using dose optimization technique as appropriate and may include automated exposure control or mA/KV adjustment according to patient size. FINDINGS: Mild plaque is present within common carotid, internal carotid and external carotid arteri es bilaterally Vertebral arteries unremarkable No dissection is seen. No high-grade stenosis IMPRESSION: Mild plaque within the carotid and vertebral arteries [place] crieria Mild stenosis 0 to 49 % Moderate stenosis 50-69% Severe stenosis 70-99%
--- NOTE | 2023-01-04 20:38 | RAD REPORT ---
EXAM DESCRIPTION: CTHead angio01/04/2023 8:19 pm CLINICAL HISTORY: cva COMPARISON: None TECHNIQUE: 100 cc Isovue [address] angiogram of the head was obtained. 3D MIPS reconstruction performed. All CT scans are performed using dose optimization technique as appropriate and may include automated exposure control or mA/KV adjustment according to patient size. FINDINGS: The basilar, anterior cerebral, middle cerebral and posterior cerebral arteries do not dem onstrate a significant abnormality Mild calcified plaque distal internal carotid arteries An aneurysm is not seen origin posterior cerebral arteries A significant stenosis is not noted. No large vessel occlusion IMPRESSION: No significant abnormality is displayed
[2023-01-04] MEDS ORDERED: LORazepam 2 MG/ML VIAL ONE (21:08)
[2023-01-04] MEDS ORDERED: ETOMIDATE 20 MG/10 ML VIAL IV ONE (21:09)
[2023-01-04] MEDS ORDERED: ROCURONIUM 50 MG/5 ML VIAL IV ONE (21:10)
[2023-01-04] MEDS ORDERED: MIDAZOLAM HCL IN 0.9 % NACL/PF 100 MG/100 ML BAG IVPB ONE (21:28)
--- NOTE | 2023-01-04 21:39 | RAD REPORT ---
EXAM DESCRIPTION: Jovannat Single View01/04/2023 9:27 pm CLINICAL HISTORY: Device placement endotracheal tube placement IMPRESSION: An endotracheal tube has been inserted with its in the right mainstem bronchus Nasogastric tube is coiled within the gastric fundus. The tip lies 1 centimeter from the GE junction
--- NOTE | 2023-01-04 21:46 | RAD REPORT ---
EXAM DESCRIPTION: CT - Head Brain Wo Cont - 01/04/2023 9:33 pm CLINICAL HISTORY: Seizure COMPARISON: January 04, 2023 TECHNIQUE: Computed axial tomography of the head was obtained. IV contrast was not requested. All CT scans are performed using dose optimization technique as appropriate and may include automated exposure control or mA/KV adjustment according to patient size. FINDINGS: 1.6 centimeter bleed has developed within the suspected left parietal lobe infarction. The ventricles are normal in caliber No shift of midline structures. No other significant change IMPRESSION: Hemorrhagic conversion of suspected left parietal lobe infarction Examination was discussed with Dr. Narayan 9:38 p.m. January 04, 2023
[2023-01-04] MEDS ORDERED: Nicardipine/NS 25 MG/250 ML KIT IV ONE (21:55)
[2023-01-04] MEDS ORDERED: NA CHLORIDE 0.9% 100 ML ONE (22:15)
[2023-01-04] MEDS ORDERED: LEVETIRACETAM 500 MG/5 ML VIAL IV ONE (22:15)
[2023-01-04] MEDS ORDERED: NA CHLORIDE 0.9% 250 ML ONE (22:29)
[2023-01-04 23:01] VITALS: TEMP 98.2
[2023-01-04 23:06] VITALS: O2SAT 100
[2023-01-04 23:11] VITALS: BP 138/80
--- NOTE | 2023-01-07 12:22 | EKG ---
Test Date: 2023-01-04 Test Time: 19:33:37 Heeler: MEASUREMENT RESULTS: Intervals: Rate: 65 IL: 130 QRSD: 78 QT: 434 QTc: 451 Bourg: P: 37 IL: 130 QRS: 68 T: 20 INTERPRETIVE STATEMENTS: Sinus rhythm with premature atrial complexes Nonspecific ST and T wave abnormality Abnormal ECG No previous ECG available for comparison Electronically Signed On 01-07-23 12:17:51 CDT by Andrea Bello
== END 2023-01-04 22:44 | disposition short-term general hospital (02) ==
LOC: ER 19:05
PROC: 5A1935Z Respiratory Ventilation, Less than 24 Consecutive Hours (ICD-10-PCS; principal; 2023-01-04)
DX: I63.9 Cerebral infarction, unspecified (principal); R47.01 Aphasia; I61.1 Nontraumatic intracerebral hemorrhage in hemisphere, cortical; I10 Essential (primary) hypertension; R29.708 NIHSS score 8; F41.9 Anxiety disorder, unspecified
CPT/HCPCS: 92977; 85025; 80048; 36415; 86900; 85610; 86901; 82947; 85730; 84484; 70450 ×2; 70496; 70498; 71045 ×2; 31500; 51702; 99291; 94002; Q9967; J3101; J1953; J2250; P9012; J7050; 93005

== ENCOUNTER 2023-01-19 14:55 | Emergency (ER) | payer OTHER ==
--- OUTSIDE RECORDS SUMMARY | 2023-01-19 15:04 | XMS REPORT | Continuity of Care Document ---
:1935 Author Organization [facility] t Address [address] [place] [address] [place] [id number] Care Team Providers Name Role Phone Maya Toledo Primary Care Physician MARLA NEW Attending Clinician Unavailable JACKIE KRISHNAMURTHY Attending Clinician Unavailable JOJO MARKS Attending Clinician Unavailable Jhony Arellano Attending Clinician Unavailable Yung White Attending Clinician Unavailable Isai Garsia Attending Clinician Unavailable ALIZA GUEVARA Attending Clinician Unavailable JONNY SINGH Attending Clinician Unavailable ERIC FULLER Attending Clinician Unavailable Dee Peng Attending Clinician Kendrick REGAN, Jojo Cooper Attending Clinician [phone] Marcus REGAN, Jackie Attending Clinician Jonah REGAN, Marla Attending Clinician Randall Alexandre MD Attending Clinician Franklin Toledo Attending Clinician Unavailable Martha Aguirre MD Attending Clinician Michell Lopez Attending Clinician Unavailable John REGAN, Leopoldo Gentile Attending Clinician [phone] JOJO MARKS Admitting Clinician Unavailable Yung White Admitting Clinician Unavailable ERIC FULLER Admitting Clinician Unavailable Randall Alexandre MD Admitting Clinician Franklin Toledo Admitting Clinician Unavailable Physician, No Primary or Family Admitting Clinician Unavaila ble Payers Payer Name Policy Type Policy Number Effective Date Expiration Date S rhoda MEDICARE A B [id number] 1998 00:00:00 FOR LIFE [id number] 2022 00:00:00 MEDICARE PART A [id number] 1998 AND B 00:00:00 Problems Condition Condition Condition Status Onset Resolution Last Treating Co mments Source Name Details Category Date Date Treatment Clinician Date Brain mass Brain mass Disease Active 2022-[address] [facility] Recurre [facility]22-[address] [facility] [address] hypertensi hypertensi nce 0-07 Magda kes on on 00:00: Medical 00 [facility] Received Received Disease [facility]ou [facility]-07 Magda kes s tissue s tissue 00:00: Medica l plasminoge plasminoge 00 Ce nter n n activator activator (tPA) in (tPA) in emergency emergency department department Intracrani Intracrani Disease Active 2022-[address] [facility]07 [facility] hemorrhage hemorrhage 00:00: Me dical 00 [facility] Seizure Seizure Disease Active 2022-[address] [facility] [facility] Acute Acute Disease Active [facility]22-[address] [facility] [address] ischemic ischemic 0-06 [facility] stroke stroke 00:[facility]: [facility] 00 [facility] Stroke Stroke Disease Recurre 2022-[address] [facility] (cerebrum) (cerebrum) nce 0-06 Magda kes 00:00: Medical 00 [facility] Backache Backache Problem Active 2022-09-08 [facility] (finding) (finding) 07:03:11 l Active [place] Problem 09/08/2022 [facility] Use for [facility] Hypertensi Hypertens Problem Active 2022-09-08 [facility] ve garcía 07:03:11 l disorder, disorder, Herm terri systemic systemic arterial arterial (disorder) (disorder) Active Problem 09/08/2022 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:03:11 l artery artery [place] (disorder) (disorder) Active Problem 09/08/2022 [facility] for [facility] Hyperlipid Hyperlipi Problem Active 2022-09-08 [facility] emia demia 07:03:11 l (disorder) (disorder) He rmann Active Problem 09/08/2022 [facility] Use for [facility] Dyspnea on Dyspnea Problem Active 2022-09-08 [facility] exertion on 07:03:11 l (finding) exertion Cely nn (finding) Active Problem 09/08/2022 [facility] Stroke Stroke Disease Resolve 2022-042023-01-05 2023-01-[address] [facility] [facility] 0-07 00:00:00 09:04:33 [facility] 00:00: Medical Center Allergies, Adverse Reactions, Alerts Allergy Allergy Status Severity Reaction(s) Onset Inactive Treating Comm ents Source Name Type Date Date Clinician Sulfa Propensi Active Rash Methodi (Sulfona ty to 204 mide adverse 00:00: Hospita Antibiot reaction 00 l ics) s to drug Sulfa DA Active U 2018-04 [facility] 00:00: [facility] Antibiot 00 are ics) [place] Sulfa DA Active U UNKNOWN 2018-04 [facility] (Sulfona 2-06 [facility] 00:00: [facility] Antibiot 00 are ics) [place] sulfa sulfa Active [facility] drugs drugs l [place] NO KNOWN Allergy Active [facility] Social History Social Habit Start Date Stop Date Quantity Comments Source Exposure to Not sure [facility] SARS-CoV-2 (event) Sexual orientation Method [facility] Sex Assigned At [birth year] Met [facility] 00:00:00 00:00:00 Smoking Status Start Date Stop Date Source Tobacco smoking consumption unknown [facility] Medications Ordered Filled Start Stop Current Ordering Indication Dosage Frequency Signature Comments Components Source Medication Medication Date Date Medication? Clinician (SIG) Name Name pantoprazol 2022-04- Yes 40mg QD Take [address] [facility] e 0-11 12-10 tablet (40 [facility] (PROTONIX) 00:00: 23:59 mg total) M edical 40 MG 00 :00 by mouth Center tablet daily for 60 days. tamsulosin 2022-04- Yes .4mg QD Take [address] [facility] [address] (FLOMAX) 0-02 09- capsule [facility] 0.4 mg Cap 00:00: 23:59 (0.4 mg Med ical 24 hr 00 :00 total) by Center capsule mouth daily for 30 days. lidocaine 2022-04- Yes 2{patch Q24H Place [address] (LIDODERM) 0-02-08 } patches [facility] 4 % patch 00:00: 23:59 onto the Med ical 00 :00 skin daily Center for 30 days. amLODIPine 2022-04- Yes 5mg QD Take [address] [facility] (NORVASC) 5 0-02 09-10 tablet (5 Magda kes MG tablet 00:00: 23:59 mg total) Me dical 00 :00 by mouth Center daily for 30 days. senna-docus 2022-04- Yes 2{tbl} Q.5D Take [address] ate 0-01 09- tablets by [facility] (SENOKOT S) 00:00: 23:59 mouth 2 Me dical 8.6-50 mg 00 :00 (two) Center per tablet times daily for 30 days. polyethylen 2022-04- Yes 17g QD Take [address] e glycol 0-01 09-09 by mouth [facility] (GLYCOLAX) 00:00: 23:59 daily for M edical 17 gram 00 :00 30 days. Center packet levothyroxi 2022-04- Yes 50ug Take [address] [facility] ne 0-01 09- tablet (50 [facility] (SYNTHROID, 00:00: 23:59 mcg total) Medical LEVOTHROID) 00 :00 by mouth Cent er 50 MCG Every tablet morning on an empty stomach for 30 days. divalproex 2022-04- Yes 500mg Q.5D Take [address] (DEPAKOTE) 0-10 11-09 tablet [facility] 500 MG 24 00:00: 23:59 (500 mg Medi maria ines hr tablet 00 :00 total) by Cente r mouth 2 (two) times daily for 30 days. atorvastati 2022-04- Yes 40mg QD Take [address] [facility] n (LIPITOR) 02-07 tablet (40 L ukes 40 MG 00:00: 23:59 mg total) Medica l tablet 00 :00 by mouth Center nightly for 30 days. [place] [id number] No Notes: Max Douglas mai mg-325 mg 6-09 4gm l oral tablet 20:00: acetaminop [place] 00 hen in 24 hours [place] [id number] No Notes: Max Douglas mai mg-325 mg 6-09 4gm l oral tablet 20:00: acetaminop [place] 00 hen in 24 hours [place] [id number] No Notes: Max Douglas mai mg-325 mg 6-09 4gm l oral tablet 20:00: acetaminop [place] 00 hen in 24 hours [place] [id number] No Notes: Max Douglas mai mg-325 mg 6-09 4gm l oral tablet 20:00: acetaminop [place] 00 hen in 24 hours [place] [id number] No Notes: Max Douglas mai mg-325 mg 6-09 4gm l oral tablet 20:00: acetaminop [place] 00 hen in 24 hours [place] [id number] No Notes: Max Douglas mai mg-325 mg 6-09 4gm l oral tablet 20:00: acetaminop [place] 00 hen in 24 hours [place] [id number] No Notes: Max Douglas mai mg-325 mg 6-09 4gm l oral tablet 20:00: acetaminop [place] 00 hen in 24 hours labetalol No 60, SBP Memor ia 6- Hold l 19:14: Parameter: [place] 00 less than 90 mmHg, HR Hold Parameter: l... hydrALAZINE No 100, if Mem oria 6- HR<60 l 19:14: and/or [place] 00 labetalol 25mg reached., SBP Hold Parameter: less t... Demerol HCl No 12.5 mg = M emoria 6-09 0.5 mL, l 19:14: Injection, [place] 00 IV Push, q5min PRN for shivers, order duration: 2 dose(s)/ti me(s), first dose 09/07/22 14:14:00 CDT, stop date Limited # of times morphine 3-0 No 2.5 mg = Memor ia 6-09 0.63 mL, l 19:14: Injection, [place] 00 IV Push, q5min PRN for Pain Mild (1-3), order duration: 4 dose(s)/ti me(s), first dose 09/07/22 14:14:00 CDT, stop date Limited # of times, Max dose 10mg; If pain still unrelieved notify Anesthesio logist Dilaudid 2022-0 No 0.5 mg = Memor ia 6-09 0.25 mL, l 19:14: Injection, [place] 00 IV Push, q5min PRN for Pain Moderate (4-6), order duration: 4 dose(s)/ti me(s), first dose 09/07/22 14:14:00 CDT, stop date Limited # of times, Max dose 2mg. If pain still unrelieved , notify Anesthesio logist fentaNYL 2022-0 No 50 mcg = 1 Mem oria 6-09 mL, l 19:14: Injection, [place] 00 IV Push, q5min PRN for pain severe (7-10), order duration: 2 dose(s)/ti me(s), first dose 09/07/22 14:14:00 CDT, stop date Limited # of times, if pain still unrelieved after second dose, notify Anesthesio logist ondansetron 2022-0 No 4 mg = 2 Me moria 6-09 mL, l 19:14: Injection, [place] 00 IV Push, q15min PRN for nausea/vom iting, order duration: 2 dose(s)/ti me(s), first dose 09/07/22 14:14:00 CDT, stop date Limited # of times promethazin 3-0 No 12.5 mg, Me moria e IVPB 6-09 Injection, l 19:14: IV [place] 00 Piggyback, Once PRN for severe nausea, infuse over 15 minutes, first dose 09/07/22 14:14:00 CDT diphenhydrA No 12.5 mg = M emoria MINE 6-09 0.25 mL, l 19:14: Injection, [place] 00 IV Push, q15min PRN for allergy symptoms, order duration: 2 dose(s)/ti me(s), first dose 09/07/22 14:14:00 CDT, stop date Limited # of times labetalol 0 No 60, SBP Memor ia 6-09 Hold l 19:14: Parameter: [place] 00 less than 90 mmHg, HR Hold Parameter: l... hydrALAZINE No 100, if Mem oria 6- HR<60 l 19:14: and/or [place] labetalol 25mg reached., SBP Hold Parameter: less t... Demerol HCl No 12.5 mg = M emoria 6-09 0.5 mL, l 19:14: Injection, [place] 00 IV Push, q5min PRN for shivers, order duration: 2 dose(s)/ti me(s), first dose 09/07/22 14:14:00 CDT, stop date Limited # of times morphine 0 No 2.5 mg = Memor ia 6-09 0.63 mL, l 19:14: Injection, [place] 00 IV Push, q5min PRN for Pain Mild (1-3), order duration: 4 dose(s)/ti me(s), first dose 09/07/22 14:14:00 CDT, stop date Limited # of times, Max dose 10mg; If pain still unrelieved notify Anesthesio logist Dilaudid 0 No 0.5 mg = Memor ia 6-09 0.25 mL, l 19:14: Injection, [place] 00 IV Push, q5min PRN for Pain Moderate (4-6), order duration: 4 dose(s)/ti me(s), first dose 09/07/22 14:14:00 CDT, stop date Limited # of times, Max dose 2mg. If pain still unrelieved , notify Anesthesio logist fentaNYL 0 No 50 mcg = 1 Mem oria 6-09 mL, l 19:14: Injection, [place] 00 IV Push, q5min PRN for pain severe (7-10), order duration: 2 dose(s)/ti me(s), first dose 09/07/22 14:14:00 CDT, stop date Limited # of times, if pain still unrelieved after second dose, notify Anesthesio logist ondansetron 2022-0 No 4 mg = 2 Me moria 6-09 mL, l 19:14: Injection, [place] 00 IV Push, q15min PRN for nausea/vom iting, order duration: 2 dose(s)/ti me(s), first dose 09/07/22 14:14:00 CDT, stop date Limited # of times promethazin 2022-0 No 12.5 mg, Me moria e IVPB - Injection, l 19:14: IV [place] 00 Piggyback, Once PRN for severe nausea, infuse over 15 minutes, first dose 09/07/22 14:14:00 CDT diphenhydrA 2022-0 No 12.5 mg = M emoria MINE - 0.25 mL, l 19:14: Injection, [place] 00 IV Push, q15min PRN for allergy symptoms, order duration: 2 dose(s)/ti me(s), first dose 09/07/22 14:14:00 CDT, stop date Limited # of times labetalol 2022-0 No 60, SBP Memor ia 09-07 Hold l 19:14: Parameter: [place] 00 less than 90 mmHg, HR Hold Parameter: l... hydrALAZINE 2022-0 No 100, if Mem oria - HR<60 l 19:14: and/or [place] 00 labetalol 25mg reached., SBP Hold Parameter: less t... Demerol HCl 0 No 12.5 mg = M emoria 6-09 0.5 mL, l 19:14: Injection, [place] 00 IV Push, q5min PRN for shivers, order duration: 2 dose(s)/ti me(s), first dose 09/07/22 14:14:00 CDT, stop date Limited # of times morphine 2022-0 No 2.5 mg = Memor ia 6-09 0.63 mL, l 19:14: Injection, [place] 00 IV Push, q5min PRN for Pain Mild (1-3), order duration: 4 dose(s)/ti me(s), first dose 09/07/22 14:14:00 CDT, stop date Limited # of times, Max dose 10mg; If pain still unrelieved notify Anesthesio logist Dilaudid 2022-0 No 0.5 mg = Memor ia 6-09 0.25 mL, l 19:14: Injection, [place] 00 IV Push, q5min PRN for Pain Moderate (4-6), order duration: 4 dose(s)/ti me(s), first dose 09/07/22 14:14:00 CDT, stop date Limited # of times, Max dose 2mg. If pain still unrelieved , notify Anesthesio logist fentaNYL 2022-0 No 50 mcg = 1 Mem oria 6-09 mL, l 19:14: Injection, [place] 00 IV Push, q5min PRN for pain severe (7-10), order duration: 2 dose(s)/ti me(s), first dose 09/07/22 14:14:00 CDT, stop date Limited # of times, if pain still unrelieved after second dose, notify Anesthesio logist ondansetron 2022-0 No 4 mg = 2 Me moria 6-09 mL, l 19:14: Injection, [place] 00 IV Push, q15min PRN for nausea/vom iting, order duration: 2 dose(s)/ti me(s), first dose 09/07/22 14:14:00 CDT, stop date Limited # of times promethazin 2022-0 No 12.5 mg, Me moria e IVPB 6-09 Injection, l 19:14: IV [place] 00 Piggyback, Once PRN for severe nausea, infuse over 15 minutes, first dose 09/07/22 14:14:00 CDT diphenhydrA 3-0 No 12.5 mg = M emoria MINE 6-09 0.25 mL, l 19:14: Injection, [place] 00 IV Push, q15min PRN for allergy symptoms, order duration: 2 dose(s)/ti me(s), first dose 09/07/22 14:14:00 CDT, stop date Limited # of times labetalol No 60, SBP Memor ia 6-09 Hold l 19:14: Parameter: [place] 00 less than 90 mmHg, HR Hold Parameter: l... hydrALAZINE No 100, if Mem oria 6-09 HR<60 l 19:14: and/or [place] 00 labetalol 25mg reached., SBP Hold Parameter: less t... Demerol HCl No 12.5 mg = M emoria 6-09 0.5 mL, l 19:14: Injection, [place] 00 IV Push, q5min PRN for shivers, order duration: 2 dose(s)/ti me(s), first dose 09/07/22 14:14:00 CDT, stop date Limited # of times morphine No 2.5 mg = Memor ia 6-09 0.63 mL, l 19:14: Injection, [place] 00 IV Push, q5min PRN for Pain Mild (1-3), order duration: 4 dose(s)/ti me(s), first dose 09/07/22 14:14:00 CDT, stop date Limited # of times, Max dose 10mg; If pain still unrelieved notify Anesthesio logist Dilaudid No 0.5 mg = Memor ia 6-09 0.25 mL, l 19:14: Injection, [place] 00 IV Push, q5min PRN for Pain [...] after second dose, notify Anesthesio logist ondansetron 0 No 4 mg = 2 Me moria 6-09 mL, l 19:14: Injection, [place] 00 IV Push, q15min PRN for nausea/vom iting, order duration: 2 dose(s)/ti me(s), first dose 09/07/22 14:14:00 CDT, stop date Limited # of times promethazin 0 No 12.5 mg, Me moria e IVPB 6- Injection, l 19:14: IV [place] 00 Piggyback, Once PRN for severe nausea, infuse over 15 minutes, first dose 09/07/22 14:14:00 CDT diphenhydrA 0 No 12.5 mg = M emoria MINE 6- 0.25 mL, l 19:14: Injection, [place] 00 IV Push, q15min PRN for allergy symptoms, order duration: 2 dose(s)/ti me(s), first dose 09/07/22 14:14:00 CDT, stop date Limited # of times labetalol 0 No 60, SBP Memor ia 6-09 Hold l 19:14: Parameter: [place] 00 less than 90 mmHg, HR Hold Parameter: l... hydrALAZINE 0 No 100, if Mem oria 6- HR<60 l 19:14: and/or [place] 00 labetalol 25mg reached., SBP Hold Parameter: less t... Demerol HCl No 12.5 mg = M emoria 6-09 0.5 mL, l 19:14: Injection, [place] 00 IV Push, q5min PRN for shivers, order duration: 2 dose(s)/ti me(s), first dose 09/07/22 14:14:00 CDT, stop date Limited # of times morphine 2022-0 No 2.5 mg = Memor ia 6-09 0.63 mL, l 19:14: Injection, [place] 00 IV Push, q5min PRN for Pain Mild (1-3), order duration: 4 dose(s)/ti me(s), first dose 09/07/22 14:14:00 CDT, stop date Limited # of times, Max dose 10mg; If pain still unrelieved notify Anesthesio logist Dilaudid No 0.5 mg = Memor ia 6- 0.25 mL, l 19:14: Injection, [place] 00 IV Push, q5min PRN for Pain [...] after second dose, notify Anesthesio logist ondansetron No 4 mg = 2 Me moria 6-09 mL, l 19:14: Injection, [place] 00 IV Push, q15min PRN for nausea/vom iting, order duration: 2 dose(s)/ti me(s), first dose 09/07/22 14:14:00 CDT, stop date Limited # of times promethazin No 12.5 mg, Me moria e IVPB 6- Injection, l 19:14: IV [place] 00 Piggyback, Once PRN for severe nausea, infuse over 15 minutes, first dose 09/07/22 14:14:00 CDT diphenhydrA No 12.5 mg = M emoria MINE 6- 0.25 mL, l 19:14: Injection, [place] 00 IV Push, q15min PRN for allergy symptoms, order duration: 2 dose(s)/ti me(s), first dose 09/07/22 14:14:00 CDT, stop date Limited # of times labetalol No 60, SBP Memor ia 6- Hold l 19:14: Parameter: [place] 00 less than 90 mmHg, HR Hold Parameter: l... hydrALAZINE 2023-0 No 100, if Mem oria 6-09 HR<60 l 19:14: and/or [place] 00 labetalol 25mg reached., SBP Hold Parameter: less t... Demerol HCl No 12.5 mg = M emoria 6-09 0.5 mL, l 19:14: Injection, [place] 00 IV Push, q5min PRN for shivers, order duration: 2 dose(s)/ti me(s), first dose 09/07/22 14:14:00 CDT, stop date Limited # of times morphine No 2.5 mg = Memor ia 6-09 0.63 mL, l 19:14: Injection, [place] 00 IV Push, q5min PRN for Pain Mild (1-3), order duration: 4 dose(s)/ti me(s), first dose 09/07/22 14:14:00 CDT, stop date Limited # of times, Max dose 10mg; If pain still unrelieved notify Anesthesio logist Dilaudid No 0.5 mg = Memor ia 6-09 0.25 mL, l 19:14: Injection, [place] 00 IV Push, q5min PRN for Pain Moderate (4-6), order duration: 4 dose(s)/ti me(s), first dose 09/07/22 14:14:00 CDT, stop date Limited # of times, Max dose 2mg. If pain still unrelieved , notify Anesthesio logist fentaNYL No 50 mcg = 1 Mem oria 6-09 mL, l 19:14: Injection, [place] 00 IV Push, q5min PRN for pain severe (7-10), order duration: 2 dose(s)/ti me(s), first dose 09/07/22 14:14:00 CDT, stop date Limited # of times, if pain still unrelieved after second dose, notify Anesthesio logist ondansetron No 4 mg = 2 Me moria 6-09 mL, l 19:14: Injection, [place] 00 IV Push, q15min PRN for nausea/vom iting, order duration: 2 dose(s)/ti me(s), first dose 09/07/22 14:14:00 CDT, stop date Limited # of times promethazin 2022-0 No 12.5 mg, Me moria e IVPB 6-09 Injection, l 19:14: IV [place] 00 Piggyback, Once PRN for severe nausea, infuse over 15 minutes, first dose 09/07/22 14:14:00 CDT diphenhydrA 2022-0 No 12.5 mg = M emoria MINE 6-09 0.25 mL, l 19:14: Injection, [place] 00 IV Push, q15min PRN for allergy symptoms, order duration: 2 dose(s)/ti me(s), first dose 09/07/22 14:14:00 CDT, stop date Limited # of times labetalol 2022-0 No 60, SBP Memor ia 6- Hold l 19:14: Parameter: [place] 00 less than 90 mmHg, HR Hold Parameter: l... hydrALAZINE 0 No 100, if Mem oria 09-07 HR<60 l 19:14: and/or [place] 00 labetalol 25mg reached., SBP Hold Parameter: less t... Demerol HCl No 12.5 mg = M emoria 6-09 0.5 mL, l 19:14: Injection, [place] 00 IV Push, q5min PRN for shivers, order duration: 2 dose(s)/ti me(s), first dose 09/07/22 14:14:00 CDT, stop date Limited # of times morphine 2022-0 No 2.5 mg = Memor ia 6-09 0.63 mL, l 19:14: Injection, [place] 00 IV Push, q5min PRN for Pain Mild (1-3), order duration: 4 dose(s)/ti me(s), first dose 09/07/22 14:14:00 CDT, stop date Limited # of times, Max dose 10mg; If pain still unrelieved notify Anesthesio logist Dilaudid 2022-0 No 0.5 mg = Memor ia 6-09 0.25 mL, l 19:14: Injection, [place] 00 IV Push, q5min PRN for Pain Moderate (4-6), order duration: 4 dose(s)/ti me(s), first dose 09/07/22 14:14:00 CDT, stop date Limited # of times, Max dose 2mg. If pain still unrelieved , notify Anesthesio logist fentaNYL 0 No 50 mcg = 1 Mem oria 6-09 mL, l 19:14: Injection, [place] 00 IV Push, q5min PRN for pain severe (7-10), order duration: 2 dose(s)/ti me(s), first dose 09/07/22 14:14:00 CDT, stop date Limited # of times, if pain still unrelieved after second dose, notify Anesthesio logist ondansetron 2022-0 No 4 mg = 2 Me moria 6- mL, l 19:14: Injection, [place] 00 IV Push, q15min PRN for nausea/vom iting, order duration: 2 dose(s)/ti me(s), first dose 09/07/22 14:14:00 CDT, stop date Limited # of times promethazin 0 No 12.5 mg, Me moria e IVPB - Injection, l 19:14: IV [place] 00 Piggyback, Once PRN for severe nausea, infuse over 15 minutes, first dose 09/07/22 14:14:00 CDT diphenhydrA 0 No 12.5 mg = M emoria MINE - 0.25 mL, l 19:14: Injection, [place] 00 IV Push, q15min PRN for allergy symptoms, order duration: 2 dose(s)/ti me(s), first dose 09/07/22 14:14:00 CDT, stop date Limited # of times Saline Lock 2022-0 No 20 mL, [place] mai Flush 6- Soln, IV l 18:44: Push, As [place] 00 Indicated PRN for flush, first dose 09/07/22 13:44:00 CDT Saline Lock 2022-0 No 20 mL, [place] mai Flush 6-09 Soln, IV l 18:44: Push, As [place] 00 Indicated PRN for flush, first dose 09/07/22 13:44:00 CDT Saline Lock 2022-0 No 20 mL, [place] mai Flush 6-09 Soln, IV l 18:44: Push, As [place] Indicated PRN for flush, first dose 09/07/22 13:44:00 CDT Saline Lock 2023-0 No 20 mL, [place] mai Flush 6- Soln, IV l 18:44: Push, As [place] Indicated PRN for flush, first dose 09/07/22 13:44:00 CDT Sal[place] 3-0 No 20 mL, [place] mai Flush 6- Soln, IV l 18:44: Push, As [place] Indicated PRN for flush, first dose 09/07/22 13:44:00 CDT Sal[place] 3-0 No 20 mL, [place] mai Flush 6- Soln, IV l 18:44: Push, As [place] Indicated PRN for flush, first dose 09/07/22 13:44:00 CDT Sal[place] 3-0 No 20 mL, [place] mai Flush - Soln, IV l 18:44: Push, As [place] Indicated PRN for flush, first dose 09/07/22 13:44:00 CDT propofol 2023-0 No 181.685 mg Mem oria 09-07 = 18.17 l 18:38: mL, [place] 00 Emulsion, IV, Once, first dose 09/07/22 13:38:00 CDT, stop date 09/07/22 13:38:00 CDT propofol 2023-0 No 181.685 mg Mem oria 09-07 = 18.17 l 18:38: mL, [place] 00 Emulsion, IV, Once, first dose 09/07/22 13:38:00 CDT, stop date 09/07/22 13:38:00 CDT propofol 2023-0 No 181.685 mg Mem oria 09-07 = 18.17 l 18:38: mL, [place] 00 Emulsion, IV, Once, first dose 09/07/22 13:38:00 CDT, stop date 09/07/22 13:38:00 CDT propofol 2023-0 No 181.685 mg Mem oria 6 = 18.17 l 18:38: mL, [place] 00 Emulsion, IV, Once, first dose 09/07/22 13:38:00 CDT, stop date 09/07/22 13:38:00 CDT propofol 2023-0 No 181.685 mg Mem oria 6- = 18.17 l 18:38: mL, [place] 00 Emulsion, IV, Once, first dose 09/07/22 13:38:00 CDT, stop date 09/07/22 13:38:00 CDT propofol 2023-0 No 181.685 mg Mem oria 6- = 18.17 l 18:38: mL, [place] 00 Emulsion, IV, Once, first dose 09/07/22 13:38:00 CDT, stop date 09/07/22 13:38:00 CDT propofol 2023-0 No 181.685 mg Mem oria 6- = 18.17 l 18:38: mL, [place] 00 Emulsion, IV, Once, first dose 09/07/22 13:38:00 CDT, stop date 09/07/22 13:38:00 CDT Lactated 2023-0 No IV, start [place] mai Ringers 09-07 date l Injection 18:36: 09/07/22 Herm terri 00 13:36:00 CDT, stop date 09/07/22 13:36:00 CDT Lactated 2023-0 No IV, start [place] mai Ringers 09-07 date l Injection 18:36: 09/07/22 Herm terri 00 13:36:00 CDT, stop date 09/07/22 13:36:00 CDT Lactated 2023-0 No IV, start Douglas ami Ringers 09-07 date l Injection 18:36: 09/07/22 Herm terri 00 13:36:00 CDT, stop date 09/07/22 13:36:00 CDT Lactated 2023-0 No IV, start [place] mai [place] 09-07 date l Injection 18:36: 09/07/22 Herm terri 00 13:36:00 CDT, stop date 09/07/22 13:36:00 CDT Lactated 2023-0 No IV, start [place] mai [place] 09-07 date l Injection 18:36: 09/07/22 Herm terri 00 13:36:00 CDT, stop date 09/07/22 13:36:00 CDT Lactated 2023-0 No IV, start [place] mai [place] 6-09 date l Injection 18:36: 09/07/22 Herm terri 00 13:36:00 CDT, stop date 09/07/22 13:36:00 CDT Lactated 3-0 No IV, start [place] mai [place] 09-07 l Injection 18:36: 09/07/22 Herm terri 00 13:36:00 CDT, stop date 09/07/22 13:36:00 CDT ceFAZolin 3-0 No 2 gm, Memoria 6- Soln-IV, l 18:00: IV [place] 00 Piggyback, Once, infuse over 30 minutes, first dose 09/07/22 13:00:00 CDT, stop date 09/07/22 13:00:00 CDT, Give within 1 hour of incision, Prophylaxi s ceFAZolin 3-0 No 2 gm, Memoria 6- Soln-IV, l 18:00: IV [place] 00 Piggyback, Once, infuse over 30 minutes, first dose 09/07/22 13:00:00 CDT, stop date 09/07/22 13:00:00 CDT, Give within 1 hour of incision, Prophylaxi s ceFAZolin 3-0 No 2 gm, Memoria 6- Soln-IV, l 18:00: IV [place] 00 Piggyback, Once, infuse over 30 minutes, first dose 09/07/22 13:00:00 CDT, stop date 09/07/22 13:00:00 CDT, Give within 1 hour of incision, Prophylaxi s ceFAZolin 2023-0 No 2 gm, Memoria 6- Soln-IV, l 18:00: IV [place] 00 Piggyback, Once, infuse over 30 minutes, first dose 09/07/22 13:00:00 CDT, stop date 09/07/22 13:00:00 CDT, Give within 1 hour of incision, Prophylaxi s ceFAZolin 2023-0 No 2 gm, Memoria 6-09 Soln-IV, l 18:00: IV [place] 00 Piggyback, Once, infuse over 30 minutes, first dose 09/07/22 13:00:00 CDT, stop date 09/07/22 13:00:00 CDT, Give within 1 hour of incision, Prophylaxi s ceFAZolin 2023-0 No 2 gm, Memoria 6-09 Soln-IV, l 18:00: IV [place] 00 Piggyback, Once, infuse over 30 minutes, first dose 09/07/22 13:00:00 CDT, stop date 09/07/22 13:00:00 CDT, Give within 1 hour of incision, Prophylaxi s ceFAZolin 2023-0 No 2 gm, Memoria 6- Soln-IV, l 18:00: IV [place] 00 Piggyback, Once, infuse over 30 minutes, first dose 09/07/22 13:00:00 CDT, stop date 09/07/22 13:00:00 CDT, Give within 1 hour of incision, Prophylaxi s ceFAZolin 3-0 No 2 gm, Memoria 6-09 Soln-IV, l 17:32: IV, Once, [place] 00 first dose 09/07/22 12:32:00 CDT, stop date 09/07/22 12:32:00 CDT lidocaine 2023-0 No 30 mg = 3 Mem oria 6-09 mL, l 17:32: Injection, [place] 00 IV, Once, first dose 09/07/22 12:32:00 CDT, stop date 09/07/22 12:32:00 CDT propofol 2023-0 No 30 mg = 3 [place] mai 6-09 mL, l 17:32: Emulsion, [place] 00 IV, Once, first dose 09/07/22 12:32:00 CDT, stop date 09/07/22 12:32:00 CDT ceFAZolin 3-0 No 2 gm, Memoria 6-09 Soln-IV, l 17:32: IV, Once, [place] 00 first dose 09/07/22 12:32:00 CDT, stop date 09/07/22 12:32:00 CDT lidocaine 2023-0 No 30 mg = 3 Mem oria 6-09 mL, l 17:32: Injection, [place] 00 IV, Once, first dose 09/07/22 12:32:00 CDT, stop date 09/07/22 12:32:00 CDT propofol 2023-0 No 30 mg = 3 [place] mai 6-09 mL, l 17:32: Emulsion, [place] 00 IV, Once, first dose 09/07/22 12:32:00 CDT, stop date 09/07/22 12:32:00 CDT ceFAZolin 2023-0 No 2 gm, Memoria 6- Soln-IV, l 17:32: IV, Once, [place] 00 first dose 09/07/22 12:32:00 CDT, stop date 09/07/22 12:32:00 CDT lidocaine 2023-0 No 30 mg = 3 Mem oria 6-09 mL, l 17:32: Injection, [place] 00 IV, Once, first dose 09/07/22 12:32:00 CDT, stop date 09/07/22 12:32:00 CDT propofol 2023-0 No 30 mg = 3 [place] 6-09 mL, l 17:32: Emulsion, [place] 00 IV, Once, first dose 09/07/22 12:32:00 CDT, stop date 09/07/22 12:32:00 CDT ceFAZolin 2023-0 No 2 gm, Memoria 6- Soln-IV, l 17:32: IV, Once, [place] 00 first dose 09/07/22 12:32:00 CDT, stop date 09/07/22 12:32:00 CDT lidocaine 2023-0 No 30 mg = 3 Mem oria 6-09 mL, l 17:32: Injection, [place] 00 IV, Once, first dose 09/07/22 12:32:00 CDT, stop date 09/07/22 12:32:00 CDT propofol 2023-0 No 30 mg = 3 [place] mai 6-09 mL, l 17:32: Emulsion, [place] 00 IV, Once, first dose 09/07/22 12:32:00 CDT, stop date 09/07/22 12:32:00 CDT ceFAZolin 2023-0 No 2 gm, Memoria 6-09 Soln-IV, l 17:32: IV, Once, [place] 00 first dose 09/07/22 12:32:00 CDT, stop date 09/07/22 12:32:00 CDT lidocaine 2023-0 No 30 mg = 3 Mem oria 6-09 mL, l 17:32: Injection, [place] 00 IV, Once, first dose 09/07/22 12:32:00 CDT, stop date 09/07/22 12:32:00 CDT propofol 2023-0 No 30 mg = 3 [place] 6-09 mL, l 17:32: Emulsion, [place] 00 IV, Once, first dose 09/07/22 12:32:00 CDT, stop date 09/07/22 12:32:00 CDT ceFAZolin 2023-0 No 2 gm, Memoria - Soln-IV, l 17:32: IV, Once, [place] first dose 09/07/22 12:32:00 CDT, stop date 09/07/22 12:32:00 CDT lidocaine 2023-0 No 30 mg = 3 Mem oria 6-09 mL, l 17:32: Injection, [place] 00 IV, Once, first dose 09/07/22 12:32:00 CDT, stop date 09/07/22 12:32:00 CDT propofol 2023-0 No 30 mg = 3 [place] 6-09 mL, l 17:32: Emulsion, [place] 00 IV, Once, first dose 09/07/22 12:32:00 CDT, stop date 09/07/22 12:32:00 CDT ceFAZolin 3-0 No 2 gm, [facility] 6- Soln-IV, l 17:32: IV, Once, first dose 09/07/22 12:32:00 CDT, stop date 09/07/22 12:32:00 CDT lidocaine 2023-0 No 30 mg = 3 Mem o[place] 6-09 mL, l 17:32: Injection, [place] 00 IV, Once, first dose 09/07/22 12:32:00 CDT, stop date 09/07/22 12:32:00 CDT propofol 2023-0 No 30 mg = 3 [place] 6-09 mL, l 17:32: Emulsion, [place] 00 IV, Once, first dose 09/07/22 12:32:00 CDT, stop date 09/07/22 12:32:00 CDT Lactated 2023-0 No 1,000 mL, [place] mai Ringers 6- IV, 100 l Injection 17:25: mL/hr, Jimbo n 1,000 mL 00 start date 09/07/22 12:25:00 CDT, For Adults unless there is a known renal disease then use Normal Saline, 1.59, m2 Lactated 2023-0 No 1,000 mL, [place] mai Ringers 6-09 IV, 100 l Injection 17:25: mL/hr, Jimbo n 1,000 mL 00 start date 09/07/22 12:25:00 CDT, For Adults unless there is a known renal disease then use Normal Saline, 1.59, m2 Lactated 2023-0 No 1,000 mL, [place] Ring[place] 6-09 IV, 100 l Injection 17:25: mL/hr, Jim[place] n 1,000 mL 00 start date 09/07/22 12:25:00 CDT, For Adults unless there is a known renal disease then use Normal Saline, 1.59, m2 Lactated 2023-0 No 1,000 mL, [place] mai Ringers 6-09 IV, 100 l Injection 17:25: mL/hr, Jimbo n 1,000 mL 00 start date 09/07/22 12:25:00 CDT, For Adults unless there is a known renal disease then use Normal Saline, 1.59, m2 Lactated 2023-0 No 1,000 mL, [place] Ringers 6-09 IV, 100 l Injection 17:25: mL/hr, Jim[place] n 1,000 mL 00 start date 09/07/22 12:25:00 CDT, For Adults unless there is a known renal disease then use Normal Saline, 1.59, m2 Lactated 2023-0 No 1,000 mL, [place] Ring[place] 6-09 IV, 100 l Injection 17:25: mL/hr, Jim[place] n 1,000 mL 00 start date 09/07/22 12:25:00 CDT, For Adults unless there is a known renal disease then use Normal Saline, 1.59, m2 Lactated 2023-0 No 1,000 mL, [place] Ring[place] 6-09 IV, 100 l Injection 17:25: mL/hr, Jim[place] n 1,000 mL start date 09/07/22 12:25:00 CDT, For Adults unless there is a known renal disease then use Normal Saline, 1.59, m2 Lidocaine 2023-0 No 5 mg = 0.5 Me moria pf IV start 6-09 mL, l 0.5mL 17:00: Injection, Jimbo jain [TOPS] 00 Subcutaneo us, Once, first dose 09/07/22 12:00:00 CDT, stop date 09/07/22 12:00:00 CDT, For IV Start Lidocaine 2023-0 No 5 mg = 0.5 Me moria pf IV start 6-09 mL, l 0.5mL 17:00: Injection, [place] jain [TOPS] 00 Subcutaneo us, Once, first dose 09/07/22 12:00:00 CDT, stop date 09/07/22 12:00:00 CDT, For IV Start Lidocaine 2023-0 No 5 mg = 0.5 Me moria pf IV start 6-09 mL, l 0.5mL 17:00: Injection, [place] jain [TOPS] 00 Subcutaneo us, Once, first dose 09/07/22 12:00:00 CDT, stop date 09/07/22 12:00:00 CDT, For IV Start Lidocaine 2023-0 No 5 mg = 0.5 Me moria pf IV start 6-09 mL, l 0.5mL 17:00: Injection, [place] jain [TOPS] 00 Subcutaneo us, Once, first dose 09/07/22 12:00:00 CDT, stop date 09/07/22 12:00:00 CDT, For IV Start Lidocaine 2023-0 No 5 mg = 0.5 Me moria pf IV start 6-09 mL, l 0.5mL 17:00: Injection, [place] jain [TOPS] 00 Subcutaneo us, Once, first dose 09/07/22 12:00:00 CDT, stop date 09/07/22 12:00:00 CDT, For IV Start Lidocaine 2023-0 No 5 mg = 0.5 Me moria pf IV start 6-09 mL, l 0.5mL 17:00: Injection, [place] jain [TOPS] 00 Subcutaneo us, Once, first dose 09/07/22 12:00:00 CDT, stop date 09/07/22 12:00:00 CDT, For IV Start Lidocaine 2023-0 No 5 mg = 0.5 Me moria pf IV start 6-09 mL, l 0.5mL 17:00: Injection, Jimbo n [TOPS] 00 Subcutaneo us, Once, first dose 09/07/22 12:00:00 CDT, stop date 09/07/22 12:00:00 CDT, For IV Start Saline Lock No 20 mL, [place] mai Flush 5-16 Soln, IV l 17:13: Push, As [place] 00 Indicated PRN for flush, first dose 08/14/21 12:13:00 CDT Labetalol No 60, SBP Memor ia 5-16 Hold l 17:13: Parameter: [place] 00 less than 100 mmHg, HR Hold Parameter: ... Hydralazine No 100, if Mem oria 5-16 HR<60 l 17:13: and/or [place] labetalol 25mg reached., SBP Hold Parameter: less t... Demerol HCl No 12.5 mg = M emoria 5-16 0.5 mL, l 17:13: Injection, [place] 00 IV Push, q5min PRN for shivers, [...] Me moria 5-16 mL, l 17:13: Injection, [place] 00 IV Push, q15min PRN for nausea/vom iting, order duration: 2 dose(s)/ti me(s), first dose 08/14/21 12:13:00 CDT, stop date Limited # of times promethazin No 12.5 mg, Me moria e IVPB 5-16 Injection, l 17:13: IV [place] 00 Piggyback, Once PRN for severe nausea, infuse over 15 minutes, first dose 08/14/21 12:13:00 CDT Diphenhydra No 12.5 mg = M emoria mine 5-16 0.25 mL, l 17:13: Injection, [place] 00 IV Push, q15min PRN for allergy symptoms, order duration: 2 dose(s)/ti me(s), first dose 08/14/21 12:13:00 CDT, stop date Limited # of times Acetaminoph No Notes: Max Memoria en 325 MG / 5-16 4gm l Hydrocodone 17:13: acetaminop [place] Bitartrate 00 hen in 24 5 MG Oral hours Tablet [[facility] 5/325] Saline Lock No 20 mL, [place] mai Flush 5-16 Soln, IV l 17:13: Push, As [place] 00 Indicated PRN for flush, first dose 08/14/21 12:13:00 CDT Labetalol No 60, SBP Memor ia 5-16 Hold l 17:13: Parameter: [place] 00 less than 100 mmHg, HR Hold Parameter: ... Hydralazine No 100, if Mem oria 5-16 HR<60 l 17:13: and/or [place] 00 labetalol 25mg reached., SBP Hold Parameter: less t... Demerol HCl No 12.5 mg = M emoria 5-16 0.5 mL, l 17:13: Injection, [place] 00 IV Push, q5min PRN for shivers, order duration: 2 dose(s)/ti me(s), first dose 08/14/21 12:13:00 CDT, stop date Limited # of times Fentanyl No 25 mcg = Memor ia 5-16 0.5 mL, l 17:13: Injection, [place] 00 IV Push, q5min PRN for pain mild-moder ate (1-6), order duration: 2 dose(s)/ti me(s), first dose 08/14/21 12:13:00 CDT, stop date Limited # of times, if pain still unrelieved after second dose, notify Anesthesio logist for fur... Ondansetron No 4 mg = 2 Me moria 5-16 mL, l 17:13: Injection, [place] 00 IV Push, q15min PRN for nausea/vom iting, order duration: 2 dose(s)/ti me(s), first dose 08/14/21 12:13:00 CDT, stop date Limited # of times promethazin No 12.5 mg, Me moria e IVPB 5-16 Injection, l 17:13: IV [place] 00 Piggyback, Once PRN for severe nausea, infuse over 15 minutes, first dose 08/14/21 12:13:00 CDT Diphenhydra No 12.5 mg = M emoria mine 5-16 0.25 mL, l 17:13: Injection, [place] 00 IV Push, q15min PRN for allergy symptoms, order duration: 2 dose(s)/ti me(s), first dose 08/14/21 12:13:00 CDT, stop date Limited # of times Acetaminoph No Notes: Max Memoria en 325 MG / 5-16 4gm l Hydrocodone 17:13: acetaminop [place] Bitartrate 00 hen in 24 5 MG Oral hours Tablet [[facility] 5/325] Saline Lock No 20 mL, [place] mai Flush 5-16 Soln, IV l 17:13: Push, As Indicated PRN for flush, first dose 08/14/21 12:13:00 CDT Labetalol No 60, SBP Memor ia 5-16 Hold l 17:13: Parameter: [place] 00 less than 100 mmHg, HR Hold Parameter: ... Hydralazine No 100, if Mem oria 5-16 HR<60 l 17:13: and/or labetalol 25mg reached., SBP Hold Parameter: less t... Demerol HCl No 12.5 mg = M emoria 5-16 0.5 mL, l 17:13: Injection, [place] 00 IV Push, q5min PRN for shivers, [...] Me moria 5-16 mL, l 17:13: Injection, [place] 00 IV Push, q15min PRN for nausea/vom iting, order duration: 2 dose(s)/ti me(s), first dose 08/14/21 12:13:00 CDT, stop date Limited # of times promethazin No 12.5 mg, Me moria e IVPB 5-16 Injection, l 17:13: IV [place] 00 Piggyback, Once PRN for severe nausea, [...] / 5-16 4gm l Hydrocodone 17:13: acetaminop [place] Bitartrate 00 hen in 24 5 MG Oral hours Tablet [[facility] 5/325] Saline Lock No 20 mL, [place] mai Flush 5-16 Soln, IV l 17:13: Push, As [place] 00 Indicated PRN for flush, first dose 08/14/21 12:13:00 CDT Labetalol No 60, SBP Memor ia 5-16 Hold l 17:13: Parameter: [place] 00 less than 100 mmHg, HR Hold Parameter: ... Hydralazine No 100, if Mem oria 5-16 HR<60 l 17:13: and/or [place] 00 labetalol 25mg reached., SBP Hold Parameter: less t... Demerol HCl No 12.5 mg = M emoria 5-16 0.5 mL, l 17:13: Injection, [place] 00 IV Push, q5min PRN for shivers, [...] Me moria 5-16 mL, l 17:13: Injection, [place] 00 IV Push, q15min PRN for nausea/vom iting, order duration: 2 dose(s)/ti me(s), first dose 08/14/21 12:13:00 CDT, stop date Limited # of times promethazin No 12.5 mg, Me moria e IVPB 5-16 Injection, l 17:13: IV [place] 00 Piggyback, Once PRN for severe nausea, infuse over 15 minutes, first dose 08/14/21 12:13:00 CDT Diphenhydra No 12.5 mg = M emoria mine 5-16 0.25 mL, l 17:13: Injection, [place] 00 IV Push, q15min PRN for allergy symptoms, order duration: 2 dose(s)/ti me(s), first dose 08/14/21 12:13:00 CDT, stop date Limited # of times Acetaminoph No Notes: Max Memoria en 325 MG / 5-16 4gm l Hydrocodone 17:13: acetaminop [place] Bitartrate 00 hen in 24 5 MG Oral hours Tablet [[facility] 5/325] Saline Lock No 20 mL, [place] mai Flush 5-16 Soln, IV l 17:13: Push, As Indicated PRN for flush, first dose 08/14/21 12:13:00 CDT Labetalol No 60, SBP Memor ia 5-16 Hold l 17:13: Parameter: [place] 00 less than 100 mmHg, HR Hold Parameter: ... Hydralazine No 100, if Mem oria 5-16 HR<60 l 17:13: and/or labetalol 25mg reached., SBP Hold Parameter: less t... Demerol HCl No 12.5 mg = M emoria 5-16 0.5 mL, l 17:13: Injection, 00 IV Push, q5min PRN for shivers, order duration: 2 dose(s)/ti me(s), first dose 08/14/21 12:13:00 CDT, stop date Limited # of times Fentanyl No 25 mcg = Memor ia 5-16 0.5 mL, l 17:13: Injection, [place] 00 IV Push, q5min PRN for pain mild-moder ate (1-6), order duration: 2 dose(s)/ti me(s), first dose 08/14/21 12:13:00 CDT, stop date Limited # of times, if pain still unrelieved after second dose, notify Anesthesio logist for fur... Ondansetron No 4 mg = 2 Me moria 5-16 mL, l 17:13: Injection, [place] 00 IV Push, q15min PRN for nausea/vom iting, order duration: 2 dose(s)/ti me(s), first dose 08/14/21 12:13:00 CDT, stop date Limited # of times promethazin No 12.5 mg, Me moria e IVPB 5-16 Injection, l 17:13: IV [place] 00 Piggyback, Once PRN for severe nausea, [...] / 5-16 4gm l Hydrocodone 17:13: acetaminop [place] Bitartrate 00 hen in 24 5 MG Oral hours Tablet [[facility] 5/325] Saline Lock No 20 mL, [place] mai Flush 5-16 Soln, IV l 17:13: Push, As [place] 00 Indicated PRN for flush, first dose 08/14/21 12:13:00 CDT Labetalol No 60, SBP Memor ia 5-16 Hold l 17:13: Parameter: [place] 00 less than 100 mmHg, HR Hold Parameter: ... Hydralazine No 100, if Mem oria 5-16 HR<60 l 17:13: and/or [place] 00 labetalol 25mg reached., SBP Hold Parameter: less t... Demerol HCl No 12.5 mg = M emoria 5-16 0.5 mL, l 17:13: Injection, IV Push, q5min PRN for shivers, order [...] Me moria 5-16 mL, l 17:13: Injection, [place] 00 IV Push, q15min PRN for nausea/vom iting, order duration: 2 dose(s)/ti me(s), first dose 08/14/21 12:13:00 CDT, stop date Limited # of times promethazin No 12.5 mg, Me moria e IVPB 5-16 Injection, l 17:13: IV [place] 00 Piggyback, Once PRN for severe nausea, infuse over 15 minutes, first dose 08/14/21 12:13:00 CDT Diphenhydra No 12.5 mg = M emoria mine 5-16 0.25 mL, l 17:13: Injection, [place] 00 IV Push, q15min PRN for allergy symptoms, order duration: 2 dose(s)/ti me(s), first dose 08/14/21 12:13:00 CDT, stop date Limited # of times Acetaminoph No Notes: Max Memoria en 325 MG / 5-16 4gm l Hydrocodone 17:13: acetaminop [place] Bitartrate 00 hen in 24 5 MG Oral hours Tablet [[facility] 5/325] Saline Lock No 20 mL, [place] mai Flush 5-16 Soln, IV l 17:13: Push, As [place] 00 Indicated PRN for flush, first dose 08/14/21 12:13:00 CDT Labetalol No 60, SBP Memor ia 5-16 Hold l 17:13: Parameter: [place] 00 less than 100 mmHg, HR Hold Parameter: ... Hydralazine No 100, if Mem oria 5-16 HR<60 l 17:13: and/or [place] 00 labetalol 25mg reached., SBP Hold Parameter: less t... Demerol HCl No 12.5 mg = M emoria 5-16 0.5 mL, l 17:13: Injection, [place] 00 IV Push, q5min PRN for shivers, order duration: 2 dose(s)/ti me(s), first dose 08/14/21 12:13:00 CDT, stop date Limited # of times Fentanyl No 25 mcg = Memor ia 5-16 0.5 mL, l 17:13: Injection, [place] 00 IV Push, q5min PRN for pain mild-moder ate (1-6), order duration: 2 dose(s)/ti me(s), first dose 08/14/21 12:13:00 CDT, stop date Limited # of times, if pain still unrelieved after second dose, notify Anesthesio logist for fur... Ondansetron No 4 mg = 2 Me moria 5-16 mL, l 17:13: Injection, [place] 00 IV Push, q15min PRN for nausea/vom iting, order duration: 2 dose(s)/ti me(s), first dose 08/14/21 12:13:00 CDT, stop date Limited # of times promethazin No 12.5 mg, Me moria e IVPB 5-16 Injection, l 17:13: IV [place] 00 Piggyback, Once PRN for severe nausea, infuse over 15 minutes, first dose 08/14/21 12:13:00 CDT Diphenhydra No 12.5 mg = M emoria mine 5-16 0.25 mL, l 17:13: Injection, [place] 00 IV Push, q15min PRN for allergy symptoms, order duration: 2 dose(s)/ti me(s), first dose 08/14/21 12:13:00 CDT, stop date Limited # of times Acetaminoph No Notes: Max Memoria en 325 MG / 5-16 4gm l Hydrocodone 17:13: acetaminop [place] Bitartrate 00 hen in 24 5 MG Oral hours Tablet [[facility] 5/325] Saline Lock No 20 mL, [place] mai Flush 5-16 Soln, IV l 17:13: Push, As [place] 00 Indicated PRN for flush, first dose 08/14/21 12:13:00 CDT Labetalol No 60, SBP Memor ia 5-16 Hold l 17:13: Parameter: [place] 00 less than 100 mmHg, HR Hold Parameter: ... Hydralazine No 100, if Mem oria 5-16 HR<60 l 17:13: and/or [place] 00 labetalol 25mg reached., SBP Hold Parameter: less t... Demerol HCl No 12.5 mg = M emoria 5-16 0.5 mL, l 17:13: Injection, [place] 00 IV Push, q5min PRN for shivers, [...] Me moria 5-16 mL, l 17:13: Injection, [place] 00 IV Push, q15min PRN for nausea/vom iting, order duration: 2 dose(s)/ti me(s), first dose 08/14/21 12:13:00 CDT, stop date Limited # of times promethazin No 12.5 mg, Me moria e IVPB 5-16 Injection, l 17:13: IV [place] 00 Piggyback, Once PRN for severe nausea, infuse over 15 minutes, first dose 08/14/21 12:13:00 CDT Diphenhydra No 12.5 mg = M emoria mine 5-16 0.25 mL, l 17:13: Injection, [place] 00 IV Push, q15min PRN for allergy symptoms, order duration: 2 dose(s)/ti me(s), first dose 08/14/21 12:13:00 CDT, stop date Limited # of times Acetaminoph No Notes: Max Memoria en 325 MG / 5-16 4gm l Hydrocodone 17:13: acetaminop [place] Bitartrate 00 hen in 24 5 MG Oral hours Tablet [[facility] 5/325] Saline Lock No 20 mL, [place] mai Flush 5-16 Soln, IV l 17:13: Push, As [place] 00 Indicated PRN for flush, first dose 08/14/21 12:13:00 CDT Labetalol No 60, SBP Memor ia 5-16 Hold l 17:13: Parameter: [place] 00 less than 100 mmHg, HR Hold Parameter: ... Hydralazine No 100, if Mem oria 5-16 HR<60 l 17:13: and/or labetalol 25mg reached., SBP Hold Parameter: less t... Demerol HCl No 12.5 mg = M emoria 5-16 0.5 mL, l 17:13: Injection, IV Push, q5min PRN for shivers, order duration: 2 dose(s)/ti me(s), first dose 08/14/21 12:13:00 CDT, stop date Limited # of times Fentanyl No 25 mcg = Memor ia 5-16 0.5 mL, l 17:13: Injection, IV Push, q5min PRN for pain mild-moder ate (1-6), order duration: 2 dose(s)/ti me(s), first dose 08/14/21 12:13:00 CDT, stop date Limited # of times, if pain still unrelieved after second dose, notify Anesthesio logist for fur... Ondansetron No 4 mg = 2 Me moria 5-16 mL, l 17:13: Injection, [place] 00 IV Push, q15min PRN for nausea/vom iting, order duration: 2 dose(s)/ti me(s), first dose 08/14/21 12:13:00 CDT, stop date Limited # of times promethazin No 12.5 mg, Me moria e IVPB 5-16 Injection, l 17:13: IV [place] 00 Piggyback, Once PRN for severe nausea, infuse over 15 minutes, first dose 08/14/21 12:13:00 CDT Diphenhydra 2021-0 No 12.5 mg = M emoria mine 5-16 0.25 mL, l 17:13: Injection, [place] 00 IV Push, q15min PRN for allergy symptoms, order duration: 2 dose(s)/ti me(s), first dose 08/14/21 12:13:00 CDT, stop date Limited # of times Acetaminoph 2021-0 No Notes: Max Memoria en 325 MG / 5-16 4gm l Hydrocodone 17:13: acetaminop [place] Bitartrate 00 hen in 24 5 MG Oral hours Tablet [[facility] 5/325] Lactated 2021-0 No IV, start [place] mai Ringers 5-16 date l Injection 16:47: 08/14/21 Herm 11:47:00 CDT, stop date 08/14/21 11:47:00 CDT Lactated 2021-0 No IV, start [place] mai Ringers 5-16 date l Injection 16:47: 08/14/21 Herm 11:47:00 CDT, stop date 08/14/21 11:47:00 CDT Lactated 2021-0 No IV, start [place] mai Ringers 5-16 date l Injection 16:47: 08/14/21 Herm 11:47:00 CDT, 08/14/21 11:47:00 CDT Lactated 2021-0 No IV, start [place] mai Ringers 5-16 date l Injection 16:47: 08/14/21 Herm 11:47:00 CDT, stop 08/14/21 11:47:00 CDT Lactated 2021-0 No IV, start [place] mai Ringers 5-16 date l Injection 16:47: 08/14/21 Herm 11:47:00 CDT, stop 08/14/21 11:47:00 CDT Lactated 2021-0 No IV, start [place] mai Ringers 5-16 date l Injection 16:47: 08/14/21 Herm 11:47:00 CDT, stop 08/14/21 11:47:00 CDT Lactated 2021-0 No IV, start [place] mai Ringers 5-16 date l Injection 16:47: 08/14/21 Herm terri 00 11:47:00 CDT, stop date 08/14/21 11:47:00 CDT Lactated 2-0 No IV, start [place] mai Ringers 5-16 date l Injection 16:47: 08/14/21 Herm terri 00 11:47:00 CDT, stop date 08/14/21 11:47:00 CDT Lactated 2-0 No IV, start [place] mai Ringers 5-16 date l Injection 16:47: 08/14/21 Herm terri 00 11:47:00 CDT, stop date 08/14/21 11:47:00 CDT propofol 2-0 No 160 mg = Memor ia 5-16 16 mL, l 16:45: Emulsion, [place] 00 IV, Once, first dose 08/14/21 11:45:00 CDT, stop date 08/14/21 11:45:00 CDT propofol 2-0 No 160 mg = Memor ia 5-16 16 mL, l 16:45: Emulsion, [place] 00 IV, Once, first dose 08/14/21 11:45:00 CDT, stop date 08/14/21 11:45:00 CDT propofol 2-0 No 160 mg = Memor ia 5-16 16 mL, l 16:45: Emulsion, [place] 00 IV, Once, first dose 08/14/21 11:45:00 CDT, stop date 08/14/21 11:45:00 CDT propofol 2-0 No 160 mg = Memor ia 5-16 16 mL, l 16:45: Emulsion, [place] 00 IV, Once, first dose 08/14/21 11:45:00 CDT, stop date 08/14/21 11:45:00 CDT propofol 2-0 No 160 mg = Memor ia 5-16 16 mL, l 16:45: Emulsion, [place] 00 IV, Once, first dose 08/14/21 11:45:00 CDT, stop date 08/14/21 11:45:00 CDT propofol 2022-0 No 160 mg = Memor ia 5-16 16 mL, l 16:45: Emulsion, [place] 00 IV, Once, first dose 08/14/21 11:45:00 CDT, stop date 08/14/21 11:45:00 CDT propofol 2022-0 No 160 mg = [facility] 5-16 16 mL, l 16:45: Emulsion, [place] 00 IV, Once, first dose 08/14/21 11:45:00 CDT, stop date 08/14/21 11:45:00 CDT propofol 2022-0 No 160 mg = [facility] 5-16 16 mL, l 16:45: Emulsion, [place] 00 IV, Once, first dose 08/14/21 11:45:00 CDT, stop date 08/14/21 11:45:00 CDT propofol 2022-0 No 160 mg = [facility] 5-16 16 mL, l 16:45: [place]ulsion, [place] 00 IV, Once, first dose 08/14/21 11:45:00 CDT, stop date 08/14/21 11:45:00 CDT ketamine 2022-0 No 30 mg = 3 [place] 5-16 mL, l 16:32: Injection, [place] 00 IV, Once, first dose 08/14/21 11:32:00 CDT, stop date 08/14/21 11:32:00 CDT ketamine 2-0 No 30 mg = 3 [place] 5-16 mL, l 16:32: Injection, [place] 00 IV, Once, first dose 08/14/21 11:32:00 CDT, stop date 08/14/21 11:32:00 CDT ketamine 2022-0 No 30 mg = 3 [place] 5-16 mL, l 16:32: Injection, [place] 00 IV, Once, first dose 08/14/21 11:32:00 CDT, stop date 08/14/21 11:32:00 CDT ketamine 2022-0 No 30 mg = 3 [place] 5-16 mL, l 16:32: Injection, [place] 00 IV, Once, first dose 08/14/21 11:32:00 CDT, stop date 08/14/21 11:32:00 CDT ketamine 2022-0 No 30 mg = 3 [place] 5-16 mL, l 16:32: Injection, [place] 00 IV, Once, first dose 08/14/21 11:32:00 CDT, stop date 08/14/21 11:32:00 CDT ketamine 2022-0 No 30 mg = 3 [place] 5-16 mL, l 16:32: Injection, [place] 00 IV, Once, first dose 08/14/21 11:32:00 CDT, stop date 08/14/21 11:32:00 CDT ketamine 2022-0 No 30 mg = 3 [place] 5-16 mL, l 16:32: Injection, [place] 00 IV, Once, first dose 08/14/21 11:32:00 CDT, stop date 08/14/21 11:32:00 CDT ketamine 2022-0 No 30 mg = 3 [place] 5-16 mL, l 16:32: Injection, [place] 00 IV, Once, first dose 08/14/21 11:32:00 CDT, stop date 08/14/21 11:32:00 CDT ketamine 2022-0 No 30 mg = 3 [place] 5-16 mL, l 16:32: Injection, [place] 00 IV, Once, first dose 08/14/21 11:32:00 CDT, stop date 08/14/21 11:32:00 CDT ketamine 2-0 No 20 mg = 2 [place] 5-16 mL, l 16:25: Injection, [place] 00 IV, Once, first dose 08/14/21 11:25:00 CDT, stop date 08/14/21 11:25:00 CDT ketamine 2022-0 No 20 mg = 2 [place] 5-16 mL, l 16:25: Injection, [place] 00 IV, Once, first dose 08/14/21 11:25:00 CDT, stop date 08/14/21 11:25:00 CDT ketamine 2-0 No 20 mg = 2 [place] 5-16 mL, l 16:25: Injection, [place] 00 IV, Once, first dose 08/14/21 11:25:00 CDT, stop date 08/14/21 11:25:00 CDT ketamine 2022-0 No 20 mg = 2 [place] 5-16 mL, l 16:25: Injection, [place] 00 IV, Once, first dose 08/14/21 11:25:00 CDT, stop date 08/14/21 11:25:00 CDT ketamine 2022-0 No 20 mg = 2 [place] 5-16 mL, l 16:25: Injection, [place] 00 IV, Once, first dose 08/14/21 11:25:00 CDT, stop date 08/14/21 11:25:00 CDT ketamine 2-0 No 20 mg = 2 [place] 5-16 mL, l 16:25: Injection, [place] 00 IV, Once, first dose 08/14/21 11:25:00 CDT, stop date 08/14/21 11:25:00 CDT ketamine 2-0 No 20 mg = 2 [place] 5-16 mL, l 16:25: Injection, [place] 00 IV, Once, first dose 08/14/21 11:25:00 CDT, stop date 08/14/21 11:25:00 CDT ketamine 2021-0 No 20 mg = 2 [place] 5-16 mL, l 16:25: Injection, [place] 00 IV, Once, first dose 08/14/21 11:25:00 CDT, stop date 08/14/21 11:25:00 CDT ketamine 2021-0 No 20 mg = 2 [place] 5-16 mL, l 16:25: Injection, [place] 00 IV, Once, first dose 08/14/21 11:25:00 CDT, stop date 08/14/21 11:25:00 CDT fentaNYL 2021-0 No 100 mcg = [place] 5-16 2 mL, l 16:22: Injection, [place] 00 IV, Once, first dose 08/14/21 11:22:00 CDT, stop date 08/14/21 11:22:00 CDT lidocaine 2021-0 No 30 mg = 3 Mem oria 5-16 mL, l 16:22: Injection, [place] 00 IV, Once, first dose 08/14/21 11:22:00 CDT, stop date 08/14/21 11:22:00 CDT propofol 2-0 No 10 mg = 1 [place] 5-16 mL, l 16:22: Emulsion, [place] 00 IV, Once, first dose 08/14/21 11:22:00 CDT, stop date 08/14/21 11:22:00 CDT fentaNYL 2-0 No 100 mcg = [place] 5-16 2 mL, l 16:22: Injection, [place] 00 IV, Once, first dose 08/14/21 11:22:00 CDT, stop date 08/14/21 11:22:00 CDT lidocaine 2022-0 No 30 mg = 3 Mem oria 5-16 mL, l 16:22: Injection, [place] 00 IV, Once, first dose 08/14/21 11:22:00 CDT, stop date 08/14/21 11:22:00 CDT propofol 2022-0 No 10 mg = 1 [place] 5-16 mL, l 16:22: Emulsion, [place] 00 IV, Once, first dose 08/14/21 11:22:00 CDT, stop date 08/14/21 11:22:00 CDT fentaNYL 2022-0 No 100 mcg = [place] 5-16 2 mL, l 16:22: Injection, [place] 00 IV, Once, first dose 08/14/21 11:22:00 CDT, stop date 08/14/21 11:22:00 CDT lidocaine 2022-0 No 30 mg = 3 Mem oria 5-16 mL, l 16:22: Injection, [place] 00 IV, Once, first dose 08/14/21 11:22:00 CDT, stop date 08/14/21 11:22:00 CDT propofol 2022-0 No 10 mg = 1 [place] 5-16 mL, l 16:22: Emulsion, [place] 00 IV, Once, first dose 08/14/21 11:22:00 CDT, stop date 08/14/21 11:22:00 CDT fentaNYL 2022-0 No 100 mcg = [place] 5-16 2 mL, l 16:22: Injection, [place] 00 IV, Once, first dose 08/14/21 11:22:00 CDT, stop date 08/14/21 11:22:00 CDT lidocaine 2022-0 No 30 mg = 3 Mem o[facility] 5-16 mL, l 16:22: Injection, [place] 00 IV, Once, first dose 08/14/21 11:22:00 CDT, stop date 08/14/21 11:22:00 CDT propofol 2022-0 No 10 mg = 1 [place] 5-16 mL, l 16:22: Emulsion, [place] 00 IV, Once, first dose 08/14/21 11:22:00 CDT, stop date 08/14/21 11:22:00 CDT fentaNYL 2022-0 No 100 mcg = [place] 5-16 2 mL, l 16:22: Injection, [place] 00 IV, Once, first dose 08/14/21 11:22:00 CDT, stop date 08/14/21 11:22:00 CDT lidocaine 2022-0 No 30 mg = 3 Mem oria 5-16 mL, l 16:22: Injection, [place] 00 IV, Once, first dose 08/14/21 11:22:00 CDT, stop date 08/14/21 11:22:00 CDT propofol 2022-0 No 10 mg = 1 [place] 5-16 mL, l 16:22: Emulsion, [place] 00 IV, Once, first dose 08/14/21 11:22:00 CDT, stop date 08/14/21 11:22:00 CDT fentaNYL 2-0 No 100 mcg = [place] 5-16 2 mL, l 16:22: Injection, [place] 00 IV, Once, first dose 08/14/21 11:22:00 CDT, stop date 08/14/21 11:22:00 CDT lidocaine 2-0 No 30 mg = 3 Mem o[facility] 5-16 mL, l 16:22: Injection, [place] 00 IV, Once, first dose 08/14/21 11:22:00 CDT, stop date 08/14/21 11:22:00 CDT propofol 2022-0 No 10 mg = 1 [place] 5-16 mL, l 16:22: Emulsion, [place] 00 IV, Once, first dose 08/14/21 11:22:00 CDT, stop date 08/14/21 11:22:00 CDT fentaNYL 2-0 No 100 mcg = [place] 5-16 2 mL, l 16:22: Injection, [place] 00 IV, Once, first dose 08/14/21 11:22:00 CDT, stop date 08/14/21 11:22:00 CDT lidocaine 2022-0 No 30 mg = 3 Mem o[facility] 5-16 mL, l 16:22: Injection, [place] 00 IV, Once, first dose 08/14/21 11:22:00 CDT, stop date 08/14/21 11:22:00 CDT propofol 2022-0 No 10 mg = 1 [place] 5-16 mL, l 16:22: Emulsion, [place] 00 IV, Once, first dose 08/14/21 11:22:00 CDT, stop date 08/14/21 11:22:00 CDT fentaNYL 2022-0 No 100 mcg = [place] 5-16 2 mL, l 16:22: Injection, [place] 00 IV, Once, first dose 08/14/21 11:22:00 CDT, stop date 08/14/21 11:22:00 CDT lidocaine 2022-0 No 30 mg = 3 Mem o[facility] 5-16 mL, l 16:22: Injection, [place] 00 IV, Once, first dose 08/14/21 11:22:00 CDT, stop date 08/14/21 11:22:00 CDT propofol 2022-0 No 10 mg = 1 [place] 5-16 mL, l 16:22: Emulsion, [place] 00 IV, Once, first dose 08/14/21 11:22:00 CDT, stop date 08/14/21 11:22:00 CDT fentaNYL 2022-0 No 100 mcg = [place] 5-16 2 mL, l 16:22: Injection, [place] 00 IV, Once, first dose 08/14/21 11:22:00 CDT, stop date 08/14/21 11:22:00 CDT lidocaine 2022-0 No 30 mg = 3 Mem o[facility] 5-16 mL, l 16:22: Injection, [place] 00 IV, Once, first dose 08/14/21 11:22:00 CDT, stop date 08/14/21 11:22:00 CDT propofol 2022-0 No 10 mg = 1 [place] 5-16 mL, l 16:22: Emulsion, [place] 00 IV, Once, first dose 08/14/21 11:22:00 CDT, stop date 08/14/21 11:22:00 CDT Cefazolin 2022-0 No 2 gm, [facility] 5-16 Soln-IV, l 16:00: IV [place] 00 Piggyback, Once, infuse over 30 minutes, first dose 08/14/21 11:00:00 CDT, stop date 08/14/21 11:00:00 CDT, Prophylaxi s Cefazolin 2022-0 No 2 gm, [facility] 5-16 Soln-IV, l 16:00: IV [place] 00 Piggyback, Once, infuse over 30 minutes, first dose 08/14/21 11:00:00 CDT, stop date 08/14/21 11:00:00 CDT, Prophylaxi s Cefazolin 2022-0 No 2 gm, [facility] 5-16 Soln-IV, l 16:00: IV [place] 00 Piggyback, Once, infuse over 30 minutes, first dose 08/14/21 11:00:00 CDT, stop date 08/14/21 11:00:00 CDT, Prophylaxi s Cefazolin 2022-0 No 2 gm, [facility] 5-16 Soln-IV, l 16:00: IV [place] 00 Piggyback, Once, infuse over 30 minutes, first dose 08/14/21 11:00:00 CDT, stop date 08/14/21 11:00:00 CDT, Prophylaxi s Cefazolin 2022-0 No 2 gm, [facility] 5-16 Soln-IV, l 16:00: IV [place] 00 Piggyback, Once, infuse over 30 minutes, first dose 08/14/21 11:00:00 CDT, stop date 08/14/21 11:00:00 CDT, Prophylaxi s Cefazolin 2022-0 No 2 gm, [facility] 5-16 Soln-IV, l 16:00: IV [place] 00 Piggyback, Once, infuse over 30 minutes, first dose 08/14/21 11:00:00 CDT, stop date 08/14/21 11:00:00 CDT, Prophylaxi s Cefazolin 2022-0 No 2 gm, [facility] 5-16 Soln-IV, l 16:00: IV [place] 00 Piggyback, Once, infuse over 30 minutes, first dose 08/14/21 11:00:00 CDT, stop date 08/14/21 11:00:00 CDT, Prophylaxi s Cefazolin 2022-0 No 2 gm, [facility] 5-16 Soln-IV, l 16:00: IV [place] 00 Piggyback, Once, infuse over 30 minutes, first dose 08/14/21 11:00:00 CDT, stop date 08/14/21 11:00:00 CDT, Prophylaxi s Cefazolin 2-0 No 2 gm, [facility] 5-16 Soln-IV, l 16:00: IV [place] 00 Piggyback, Once, infuse over 30 minutes, first dose 08/14/21 11:00:00 CDT, stop date 08/14/21 11:00:00 CDT, Prophylaxi s Lidocaine 2-0 No 5 mg = 0.5 Me moria pf IV start 5-16 mL, l 0.5mL 15:00: Injection, Jimbo jain [TOPS] 00 Subcutaneo us, Once, first dose 08/14/21 10:00:00 CDT, stop date 08/14/21 10:00:00 CDT, For IV Start Lidocaine 2-0 No 5 mg = 0.5 Me moria pf IV start 5-16 mL, l 0.5mL 15:00: Injection, Jimbo jain [TOPS] Subcutaneo us, Once, first dose 08/14/21 10:00:00 CDT, stop date 08/14/21 10:00:00 CDT, For IV Start Lidocaine 2-0 No 5 mg = 0.5 Me moria pf IV start 5-16 mL, l 0.5mL 15:00: Injection, Jim[place] jain [TOPS] Subcutaneo us, Once, first dose 08/14/21 10:00:00 CDT, stop date 08/14/21 10:00:00 CDT, For IV Start Lidocaine 2-0 No 5 mg = 0.5 Me moria pf IV start 5-16 mL, l 0.5mL 15:00: Injection, [place] jain [TOPS] 00 Subcutaneo us, Once, first dose 08/14/21 10:00:00 CDT, stop date 08/14/21 10:00:00 CDT, For IV Start Lidocaine 2022-0 No 5 mg = 0.5 Me moria pf IV start 5-16 mL, l 0.5mL 15:00: Injection, [place] jain [TOPS] 00 Subcutaneo us, Once, first dose 08/14/21 10:00:00 CDT, stop date 08/14/21 10:00:00 CDT, For IV Start Lidocaine 2-0 No 5 mg = 0.5 Me moria pf IV start 5-16 mL, l 0.5mL 15:00: Injection, Jimbo jain [TOPS] Subcutaneo us, Once, first dose 08/14/21 10:00:00 CDT, stop date 08/14/21 10:00:00 CDT, For IV Start Lidocaine 2-0 No 5 mg = 0.5 Me moria pf IV start 5-16 mL, l 0.5mL 15:00: Injection, Jimbo jain [TOPS] Subcutaneo us, Once, first dose 08/14/21 10:00:00 CDT, stop date 08/14/21 10:00:00 CDT, For IV Start Lidocaine 2-0 No 5 mg = 0.5 Me moria pf IV start 5-16 mL, l 0.5mL 15:00: Injection, Jimbo jain [TOPS] Subcutaneo us, Once, first dose 08/14/21 10:00:00 CDT, stop date 08/14/21 10:00:00 CDT, For IV Start Lidocaine 2-0 No 5 mg = 0.5 Me [place] pf IV start 5-16 mL, l 0.5mL 15:00: Injection, Jimbo jain [TOPS] Subcutaneo us, Once, first dose 08/14/21 10:00:00 CDT, stop date 08/14/21 10:00:00 CDT, For IV Start LR 1,000 mL 2021-0 No 1,000 mL, M emoria 5-16 IV, 100 l 14:48: mL/hr, start date 08/14/21 9:48:00 CDT, For Adults unless there is a known renal disease then use Normal Saline LR 1,000 mL 2022-0 No 1,000 mL, M emoria 5-16 IV, 100 l 14:48: mL/hr, start date 08/14/21 9:48:00 CDT, For Adults unless there is a known renal disease then use Normal Saline LR 1,000 mL No 1,000 mL, M emoria 5-16 IV, 100 l 14:48: mL/hr, 08/14/21 9:48:00 CDT, For Adults unless there is a known renal disease then use Normal Saline LR 1,000 mL No 1,000 mL, M emoria 5-16 IV, 100 l 14:48: mL/hr, 08/14/21 9:48:00 CDT, For Adults unless there is a known renal disease then use Normal Saline LR 1,000 mL No 1,000 mL, M emoria 5-16 IV, 100 l 14:48: mL/hr, 08/14/21 9:48:00 CDT, For Adults unless there is a known renal disease then use Normal Saline LR 1,000 mL No 1,000 mL, M emoria 5-16 IV, 100 l 14:48: mL/hr, 08/14/21 9:48:00 CDT, For Adults unless there is a known renal disease then use Normal Saline LR 1,000 mL No 1,000 mL, M emoria 5-16 IV, 100 l 14:48: mL/hr, 08/14/21 9:48:00 CDT, For Adults unless there is a known renal disease then use Normal Saline LR 1,000 mL No 1,000 mL, M emoria 5-16 IV, 100 l 14:48: mL/hr, 08/14/21 9:48:00 CDT, For Adults unless there is a known renal disease then use Normal Saline LR 1,000 mL No 1,000 mL, M emoria 5-16 IV, 100 l 14:48: mL/hr, 08/14/21 9:48:00 CDT, For Adults unless there is a known renal disease then use Normal Saline Vitamin C Yes 500 mg, [facility] ia 5-13 Oral, l 19:53: Daily One-A-Day Yes 1 tabs, Memor ia 50+ 5-13 Oral, l 19:53: Daily [place] 00 Vitamin C 0 Yes 500 mg, Mem[facility] ia 5-13 Oral, l 19:53: Daily [place]-A-Day 0 Yes 1 tabs, Memor ia 50+ 5-13 Oral, l 19:53: Daily [place] 00 Vitamin C 0 Yes 500 mg, Memor ia 5-13 Oral, l 19:53: Daily [place] -ADay 0 Yes 1 tabs, Memor ia 50+ 5-13 Oral, l 19:53: Daily [place] 00 Vitamin C 0 Yes 500 mg, [facility] 5-13 Oral, l 19:53: Daily [place]-ADay 0 Yes 1 tabs, Memor ia 50+ 5-13 Oral, l 19:53: Daily [place] 00 Vitamin C 0 Yes 500 mg, [facility] 5-13 Oral, l 19:53: Daily [place]-A0 Yes 1 tabs, Memor ia 50+ 5-13 Oral, l 19:53: Daily [place] 00 Vitamin C 0 Yes 500 mg, Memor ia 5-13 Oral, l 19:53: Daily [place]-ADay 0 Yes 1 tabs, Memor ia 50+ 5-13 Oral, l 19:53: Daily [place] 00 Vitamin C 0 Yes 500 mg, Mem[facility] 5-13 Oral, l 19:53: Daily [place] -ADay 0 Yes 1 tabs, Mem[facility] ia 50+ 5-13 Oral, l 19:53: Daily [place] 00 Vitamin C 0 Yes 500 mg, Memor ia 5-13 Oral, l 19:53: Daily [place] -A-Day 0 Yes 1 tabs, Memor ia 50+ 5-13 Oral, l 19:53: Daily [place] 00 Vitamin C 0 Yes 500 mg, Mem[facility] ia 5-13 Oral, l 19:53: Daily [place] -A-Day 0 Yes 1 tabs, Memor ia 50+ 5-13 Oral, l 19:53: Daily [place] 00 amLODIPine 2022-0 Yes 5 mg, Memori a 5-13 Oral, qHS l 19:52: olmesartan 2021-0 Yes 40 mg, [facility] 5-13 Oral, l 19:52: Daily Tylenol 2021-0 Yes 1,000 mg = [place] Extra 5-13 2 tabs, l Strength 19:52: Oral, [place] 500 mg oral 00 q6hr, PRN tablet as needed for pain [place]-3 0 Yes 2,000 mg, [facility] Fish Oil 5-13 Oral, l 19:52: Daily Amlodipine 2021-0 Yes 5 mg, Mem[facility] a 5-13 Oral, qHS l 19:52: olmesartan 2021-0 Yes 40 mg, [facility] 5-13 Oral, l 19:52: Daily Acetaminoph 0 Yes 1,000 mg = [facility] en 500 MG 5-13 2 tabs, l Oral Tablet 19:52: Oral, C[place] nn [Tylenol] 00 q6hr, PRN as needed for pain [place]-3 0 Yes 2,000 mg, [facility] Fish Oil 5-13 Oral, l 19:52: Daily Amlodipine 2021-0 Yes 5 mg, [facility] a 5-13 Oral, qHS l 19:52: olmesartan 2021-0 Yes 40 mg, [facility] 5-13 Oral, l 19:52: Daily Acetaminoph 0 Yes 1,000 mg = [facility] en 500 MG 5-13 2 tabs, l Oral Tablet 19:52: Oral, [place] nn [Tylenol] 00 q6hr, PRN as needed for pain [place]-3 2021-0 Yes 2,000 mg, [facility] Fish Oil 5-13 Oral, l 19:52: Daily Amlodipine 2021-0 Yes 5 mg, [facility] a 5-13 Oral, qHS l 19:52: olmesartan 2021-0 Yes 40 mg, [facility] 5-13 Oral, l 19:52: Daily Acetaminoph 0 Yes 1,000 mg = [facility] en 500 MG 5-13 2 tabs, l Oral Tablet 19:52: Oral, [place] nn [Tylenol] 00 q6hr, PRN as needed for pain amLODIPine 2021-0 Yes 5 mg, Memori a 5-13 Oral, qHS l 19:52: [place] 00 olmesartan 2021-0 Yes 40 mg, [facility] ia 5-13 Oral, l 19:52: Daily Tylenol 2021-0 Yes 1,000 mg = [place] Extra 5-13 2 tabs, l Strength 19:52: Oral, [place] 500 mg oral 00 q6hr, PRN tablet as needed for pain [place]-3 0 Yes 2,000 mg, [facility] Fish Oil 5-13 Oral, l 19:52: Daily Amlodipine 2021-0 Yes 5 mg, Memori a 5-13 Oral, qHS l 19:52: [place] 00 olmesartan 2021-0 Yes 40 mg, [facility] ia 5-13 Oral, l 19:52: Daily Acetaminoph 2021-0 Yes 1,000 mg = [facility] en 500 MG 5-13 2 tabs, l Oral Tablet 19:52: Oral, [place] nn [Tylenol] 00 q6hr, PRN as needed for pain amLODIPine 2021-0 Yes 5 mg, Memori a 5-13 Oral, qHS l 19:52: olmesartan 2021-0 Yes 40 mg, [facility] 5-13 Oral, l 19:52: Daily Tylenol 2021-0 Yes 1,000 mg = [place] Extra 5-13 2 tabs, l Strength 19:52: Oral, [place] 500 mg oral 00 q6hr, PRN tablet as needed for pain [place]-3 0 Yes 2,000 mg, [facility] Fish Oil 5-13 Oral, l 19:52: Daily Amlodipine 2021-0 Yes 5 mg, Memori a 5-13 Oral, qHS l 19:52: [place] 00 Amlodipine 2-0 Yes 5 mg, Memori a 5-13 Oral, qHS l 19:52: [place] 00 olmesartan 2-0 Yes 40 mg, [facility] ia 5-13 Oral, l 19:52: Daily Acetaminoph 0 Yes 1,000 mg = [facility] en 500 MG 5-13 2 tabs, l Oral Tablet 19:52: Oral, [place] nn [Tylenol] 00 q6hr, PRN as needed for pain amLODIPine 2021-0 Yes 5 mg, Memori a 5-13 Oral, qHS l 19:52: [place] 00 olmesartan 2021-0 Yes 40 mg, Mem[facility] ia 5-13 Oral, l 19:52: Daily [place] 00 Tylenol 2021-0 Yes 1,000 mg = [place] mai Extra 5-13 2 tabs, l Strength 19:52: Oral, [place] 500 mg oral 00 q6hr, PRN tablet as needed for pain [place]-3 0 Yes 2,000 mg, [facility] Fish Oil 5-13 Oral, l 19:52: Daily [place] 00 olmesartan 2021-0 Yes 40 mg, [facility] 5-13 Oral, l 19:52: Daily Acetaminoph 0 Yes 1,000 mg = [facility] en 500 MG 5-13 2 tabs, l Oral Tablet 19:52: Oral, [place] nn [Tylenol] 00 q6hr, PRN as needed for pain amLODIPine 0 Yes 5 mg, Memori a 5-13 Oral, qHS l 19:52: [place] 00 olmesartan 2021-0 Yes 40 mg, [facility] 5-13 Oral, l 19:52: Daily [place] 00 Tylenol 2021-0 Yes 1,000 mg = [place] mai Extra 5-13 2 tabs, l Strength 19:52: Oral, [place] 500 mg oral 00 q6hr, PRN tablet as needed for pain [place]-3 2021-0 Yes 2,000 mg, [facility] Fish Oil 5-13 Oral, l 19:52: Daily [place] 00 Amlodipine 2021-0 Yes 5 mg, Memori a 5-13 Oral, qHS l 19:52: [place] 00 olmesartan 2-0 Yes 40 mg, [facility] 5-13 Oral, l 19:52: Daily [place] 00 Acetaminoph 2021-0 Yes 1,000 mg = Memoria en 500 MG 5-13 2 tabs, l Oral Tablet 19:52: Oral, [place] nn [Tylenol] 00 q6hr, PRN as needed for pain amLODIPine 2021-0 Yes 5 mg, Memori a 5-13 Oral, qHS l 19:52: [place] 00 olmesartan 2-0 Yes 40 mg, Mem[facility] ia 5-13 Oral, l 19:52: Daily Tylenol 2021-0 Yes 1,000 mg = [place] Extra 5-13 2 tabs, l Strength 19:52: Oral, [place] 500 mg oral 00 q6hr, PRN tablet as needed for pain [place]-3 0 Yes 2,000 mg, [facility] Fish Oil 5-13 Oral, l 19:52: Daily Amlodipine 2021-0 Yes 5 mg, Mem[facility] a 5-13 Oral, qHS l 19:52: [place] 00 olmesartan 2021-0 Yes 40 mg, Mem[facility] ia 5-13 Oral, l 19:52: Daily Acetaminoph 0 Yes 1,000 mg = [facility] en 500 MG 5-13 2 tabs, l Oral Tablet 19:52: Oral, [place] nn [Tylenol] 00 q6hr, PRN as needed for pain amLODIPine 2021-0 Yes 5 mg, Memori a 5-13 Oral, qHS l 19:52: [place] 00 olmesartan 2021-0 Yes 40 mg, [facility] 5-13 Oral, l 19:52: Daily Tylenol 2021-0 Yes 1,000 mg = [place] Extra 5-13 2 tabs, l Strength 19:52: Oral, [place] 500 mg oral 00 q6hr, PRN tablet as needed for pain [place]-3 0 Yes 2,000 mg, [facility] Fish Oil 5-13 Oral, l 19:52: Daily Amlodipine 2021-0 Yes 5 mg, Mem[facility] a 5-13 Oral, qHS l 19:52: [place] 00 olmesartan 2-0 Yes 40 mg, [facility] ia 5-13 Oral, l 19:52: Daily Acetaminoph 2021-0 Yes 1,000 mg = [facility] en 500 MG 5-13 2 tabs, l Oral Tablet 19:52: Oral, [place] nn [Tylenol] 00 q6hr, PRN as needed for pain pantoprazol 0 Yes 40 mg, [place] mai e 5-13 Oral, l 19:51: Daily Pravastatin 2-0 Yes 40 mg, [place] mai 5-13 Oral, l 19:51: Daily Valproate 2021-0 Yes 250 mg, Mem[facility] 5-13 Oral, qHS l 19:51: Synthroid 2-0 Yes 50 mcg, [facility] 5-13 Oral, l 19:51: Daily Prolia 2-0 Yes 60 mg, Memoria 5-13 Subcutaneo l [...] e 5-13 Oral, l 19:51: Daily Pravastatin 2-0 Yes 40 mg, [place] mai 5-13 Oral, l 19:51: Daily Valproate 2021-0 Yes 250 mg, [facility] 5-13 Oral, qHS l 19:51: Synthroid 2-0 Yes 50 mcg, [facility] 5-13 Oral, l 19:51: Daily Prolia 2-0 Yes 60 mg, Memoria 5-13 Subcutaneo l 19:51: us, q6mo pantoprazol 2-0 Yes 40 mg, [place] mai e 5-13 Oral, l 19:51: Daily pravastatin 2-0 Yes 40 mg, [place] mai 5-13 Oral, l 19:51: Daily divalproex 2-0 Yes 250 mg, [place] mai sodium 5-13 Oral, qHS l 19:51: [place] 00 Synthroid 2021-0 Yes 50 mcg, Mem[facility] ia 5-13 Oral, l 19:51: Daily Prolia 2021-0 Yes 60 mg, Memoria 5-13 Subcutaneo l 19:51: us, q6mo pantoprazol 2021-0 Yes 40 mg, [place] mai e 5-13 Oral, l 19:51: Daily Pravastatin 2021-0 Yes 40 mg, [place] mai 5-13 Oral, l 19:51: Daily Valproate 2021-0 Yes 250 mg, Memor ia 5-13 Oral, [...] e 5-13 Oral, l 19:51: Daily Pravastatin 2021-0 Yes 40 mg, [place] mai 5-13 Oral, l 19:51: Daily Valproate 2021-0 Yes 250 mg, Mem[facility] ia 5-13 Oral, qHS l 19:51: [place] 00 Synthroid 2021-0 Yes 50 mcg, Memor ia 5-13 Oral, l 19:51: Daily Prolia 2021-0 Yes 60 mg, [facility]oria 5-13 Subcutaneo l 19:51: us, q6mo 00 pantoprazol 2021-0 Yes 40 mg, [place] mai e 5-13 Oral, l 19:51: Daily pravastatin 2021-0 Yes 40 mg, [place] mai 5-13 Oral, l 19:51: Daily divalproex 2-0 Yes 250 mg, [place] mai sodium 5-13 Oral, qHS l 19:51: Synthroid 2021-0 Yes 50 mcg, Mem[facility] ia 5-13 Oral, l 19:51: Daily Prolia 2021-0 Yes 60 mg, [facility] 5-13 Subcutaneo l 19:51: us, q6mo pantoprazol 2021-0 Yes 40 mg, [place] mai e 5-13 Oral, l 19:51: Daily Pravastatin 2021-0 Yes 40 mg, [place] mai 5-13 Oral, l 19:51: Daily Valproate 2021-0 Yes 250 mg, [facility] ia 5-13 Oral, qHS l 19:51: Synthroid 2021-0 Yes 50 mcg, [facility] 5-13 Oral, l 19:51: Daily Prolia 2021-0 Yes 60 mg, [facility] 5-13 Subcutaneo l 19:51: us, q6mo pantoprazol 2021-0 Yes 40 mg, [place] mai e 5-13 Oral, l 19:51: Daily Pravastatin 2-0 Yes 40 mg, [place] 5-13 Oral, l 19:51: Daily Valproate 2021-0 Yes 250 mg, Mem[facility] ia 5-13 Oral, qHS l 19:51: Synthroid 2021-0 Yes 50 mcg, [facility] 5-13 Oral, l 19:51: Daily Prolia 2-0 Yes 60 mg, [facility] 5-13 Subcutaneo l 19:51: us, q6mo pantoprazol 2-0 Yes 40 mg, [place] mai e 5-13 Oral, l 19:51: Daily Pravastatin 2-0 Yes 40 mg, [place] 5-13 Oral, l 19:51: Daily Valproate 2021-0 Yes 250 mg, [facility] 5-13 Oral, qHS l 19:51: Synthroid 2-0 Yes 50 mcg, [facility] ia 5-13 Oral, l 19:51: Daily Prolia 2-0 Yes 60 mg, Memoria 5-13 Subcutaneo l [...] e 5-13 Oral, l 19:51: Daily Pravastatin 2021-0 Yes 40 mg, [place] 5-13 Oral, l 19:51: Daily Valproate 2021-0 Yes 250 mg, [facility] 5-13 Oral, qHS l 19:51: Synthroid 2021-0 Yes 50 mcg, [facility] 5-13 Oral, l 19:51: Daily Prolia 2021-0 Yes 60 mg, [facility] 5-13 Subcutaneo l 19:51: us, q6mo pantoprazol 2021-0 Yes 40 mg, [place] mai e 5-13 Oral, l 19:51: Daily pravastatin 2-0 Yes 40 mg, [place] 5-13 Oral, l 19:51: Daily divalproex 2-0 Yes 250 mg, [place] mai sodium 5-13 Oral, qHS l 19:51: Synthroid 2-0 Yes 50 mcg, [facility] 5-13 Oral, l 19:51: Daily Prolia 2-0 Yes 60 mg, [facility] 5-13 Subcutaneo l 19:51: us, q6mo [place] 00 pantoprazol 2-0 Yes 40 mg, [place] mai e 5-13 Oral, l 19:51: Daily Pravastatin 2021-0 Yes 40 mg, [place] mai 5-13 Oral, l 19:51: Daily Valproate 2021-0 Yes 250 mg, Mem[facility] ia 5-13 Oral, qHS l 19:51: Synthroid 2021-0 Yes 50 mcg, [facility] ia 5-13 Oral, l 19:51: Daily Prolia 2-0 Yes 60 mg, [facility] 5-13 Subcutaneo l 19:51: us, q6mo 00 pantoprazol 2021-0 Yes 40 mg, [facility] mai e 5-13 Oral, l 19:51: Daily pravastatin 2021-0 Yes 40 mg, [facility] mai 5-13 Oral, l 19:51: Daily divalproex 2021-0 Yes 250 mg, [facility] mai sodium 5-13 Oral, qHS l 19:51: Synthroid 2021-0 Yes 50 mcg, [facility] 5-13 Oral, l 19:51: Daily Prolia 2021-0 Yes 60 mg, [facility] 5-13 Subcutaneo l 19:51: us, q6mo Aspirin 2-0 Yes 81 mg, [facility] 5-13 Oral, l 19:50: Daily Hydrochloro 2-0 Yes 25 mg, [facility] mai thiazide 5-13 Oral, l 19:50: Daily Buspirone 2-0 Yes 5 mg, [facility] 5-13 Oral, BID l 19:50: aspirin 2-0 Yes 81 mg, [facility] 5-13 Oral, l 19:50: Daily hydroCHLORO 2-0 Yes 25 mg, [facility] mai thiazide 5-13 Oral, l 19:50: Daily busPIRone 2022-0 Yes 5 mg, [facility] 5-13 Oral, BID l 19:50: Aspirin 2-0 Yes 81 mg, [facility] 5-13 Oral, l 19:50: Daily Hydrochloro 2-0 Yes 25 mg, [facility] mai thiazide 5-13 Oral, l 19:50: Daily Buspirone 2-0 Yes 5 mg, [facility] 5-13 Oral, BID l 19:50: aspirin 2-0 Yes 81 mg, [facility] 5-13 Oral, l 19:50: Daily hydroCHLORO 2-0 Yes 25 mg, [facility] mai thiazide 5-13 Oral, l 19:50: Daily busPIRone 2-0 Yes 5 mg, [facility] 5-13 Oral, BID l 19:50: Aspirin 2-0 Yes 81 mg, [facility] 5-13 Oral, l 19:50: Daily Hydrochloro 2-0 Yes 25 mg, [facility] mai thiazide 5-13 Oral, l 19:50: Daily Buspirone 2-0 Yes 5 mg, [facility] 5-13 Oral, BID l 19:50: aspirin 2-0 Yes 81 mg, [facility] 5-13 Oral, l 19:50: Daily hydroCHLORO 2-0 Yes 25 mg, [facility] mai thiazide 5-13 Oral, l 19:50: Daily busPIRone 2-0 Yes 5 mg, [facility] 5-13 Oral, BID l 19:50: Aspirin 2-0 Yes 81 mg, [facility] 5-13 Oral, l 19:50: Daily Hydrochloro 2-0 Yes 25 mg, [facility] mai thiazide 5-13 Oral, l 19:50: Daily Buspirone 2-0 Yes 5 mg, [facility] 5-13 Oral, BID l 19:50: aspirin 2-0 Yes 81 mg, [facility] 5-13 Oral, l 19:50: Daily hydroCHLORO 2-0 Yes 25 mg, [facility] mai thiazide 5-13 Oral, l 19:50: Daily busPIRone 2022-0 Yes 5 mg, [facility] 5-13 Oral, BID l 19:50: Aspirin 2-0 Yes 81 mg, [facility] 5-13 Oral, l 19:50: Daily Hydrochloro 2-0 Yes 25 mg, [facility] mai thiazide 5-13 Oral, l 19:50: Daily Buspirone 2-0 Yes 5 mg, [facility] 5-13 Oral, BID l 19:50: Aspirin 2-0 Yes 81 mg, [facility] 5-13 Oral, l 19:50: Daily Hydrochloro 2022-0 Yes 25 mg, [facility] mai thiazide 5-13 Oral, l 19:50: Daily Buspirone 2-0 Yes 5 mg, [facility] 5-13 Oral, BID l 19:50: Aspirin 2-0 Yes 81 mg, [facility] 5-13 Oral, l 19:50: Daily Hydrochloro 2-0 Yes 25 mg, [facility] mai thiazide 5-13 Oral, l 19:50: Daily Buspirone 2-0 Yes 5 mg, [facility] 5-13 Oral, BID l 19:50: aspirin 2-0 Yes 81 mg, [facility] 5-13 Oral, l 19:50: Daily hydroCHLORO 2-0 Yes 25 mg, [facility] mai thiazide 5-13 Oral, l 19:50: Daily busPIRone 2-0 Yes 5 mg, [facility] 5-13 Oral, BID l 19:50: Aspirin 2-0 Yes 81 mg, [facility] 5-13 Oral, l 19:50: Daily Hydrochloro 2-0 Yes 25 mg, [facility] mai thiazide 5-13 Oral, l 19:50: Daily Buspirone 2-0 Yes 5 mg, [facility] 5-13 Oral, BID l 19:50: aspirin 2022-0 Yes 81 mg, [facility] 5-13 Oral, l 19:50: Daily hydroCHLORO 2022-0 Yes 25 mg, [facility] mai thiazide 5-13 Oral, l 19:50: Daily busPIRone 2-0 Yes 5 mg, [facility] 5-13 Oral, BID l 19:50: Aspirin 2-0 Yes 81 mg, [facility] 5-13 Oral, l 19:50: Daily Hydrochloro 2-0 Yes 25 mg, [facility] mai thiazide 5-13 Oral, l 19:50: Daily Buspirone 2021-0 Yes 5 mg, [facility] 5-13 Oral, BID l 19:50: aspirin 2-0 Yes 81 mg, [facility] 5-13 Oral, l 19:50: Daily hydroCHLORO 2-0 Yes 25 mg, [facility] mai thiazide 5-13 Oral, l 19:50: Daily busPIRone 2-0 Yes 5 mg, [facility] 5-13 Oral, BID l 19:50: 00 Immunizations Ordered Filled Immunization Date Status Comments [facility] e Immunization Name Name [facility] JANNET-19 2020-05-26 Completed [employer] [facility] VACCINATION 00:00:00 [facility] COVID-19 2020-05-26 Completed [employer] MRNA VACCINATION 00:00:00 [facility] COVID-19 2020-05-26 Completed [facility] VACCINATION 00:00:00 [facility] COVID-19 2020-05-26 Completed [facility] VACCINATION 00:00:00 [facility] COVID-19 2020-05-05 Completed [facility] VACCINATION 00:00:00 [facility] COVID-19 2020-05-05 Completed [facility] VACCINATION 00:00:00 [facility] COVID-19 2020-05-05 Completed [facility] VACCINATION 00:00:00 [facility] COVID-19 2020-05-05 Completed [facility] V[facility] Com[facility] Vital Signs Vital Name Observation Time Observation Value Comments Source HEIGHT 2023-01-06 11:16:00 152.4 cm WEIGHT 2023-01-05 00:15:00 68.1 kg HEIGHT 2023-01-06 11:16:00 152.4 cm WEIGHT 2023-01-05 00:15:00 68.1 kg Heart rate 2023-01-08 12:00:00 70 /min [facility] Systolic blood 2023-01-08 11:40:00 127 mm[Hg] [facility] Diastolic blood 2023-01-08 11:40:00 60 mm[Hg] [facility] Body temperature 2023-01-08 11:40:00 36.56 Bri [facility] Respiratory rate 2023-01-08 11:40:00 18 /min [facility] Oxygen saturation in 2023-01-08 11:40:00 95 /min [facility] Arterial blood by Medical Ce nter Pulse oximetry Body height 2023-01-06 11:16:00 152.4 cm [facility] Heart rate 2023-01-05 03:05:00 77 /min [facility] Oxygen saturation in 2023-01-05 03:05:00 100 /min [facility] Arterial blood by Medical Ce nter Pulse oximetry BMI 2023-01-05 00:15:00 29.32 kg/m2 [facility] Body weight 2023-01-05 00:15:00 68.1 kg [facility] Heart Rate 2022-09-07 19:45:00 [facility] [place] Respitory Rate 2022-09-07 19:45:00 [facility] Systolic (mm Hg) 2022-09-07 19:45:00 [facility] [place] Diastolic (mm Hg) 2022-09-07 19:45:00 [facility] Heart Rate 2022-09-07 19:30:00 [facility] [place] Respitory Rate 2022-09-07 19:30:00 [facility] [place] Systolic (mm Hg) 2022-09-07 19:30:00 [facility] Diastolic (mm Hg) 2022-09-07 19:30:00 [facility] Heart Rate 2022-09-07 19:15:00 [facility] Respitory Rate 2022-09-07 19:15:00 [facility] [place] Systolic (mm Hg) 2022-09-07 19:15:00 [facility] [place] Diastolic (mm Hg) 2022-09-07 19:15:00 [facility] [place] Temperature Oral (F) 2022-09-07 18:30:00 36.9 [facility] [place] Temperature Oral (F) 2022-09-07 16:32:00 36 [facility] Height 2022-09-07 16:32:00 152.40 cm [facility] [place] Weight 2022-09-07 16:32:00 [facility] Height 2022-08-30 19:34:00 152.40 cm [facility] [place] Weight 2022-08-30 19:34:00 [facility] [place] Heart Rate 2021-08-14 17:30:00 [facility] [place] Respitory Rate 2021-08-14 17:30:00 [facility] Systolic (mm Hg) 2021-08-14 17:30:00 [facility] [place] Diastolic (mm Hg) 2021-08-14 17:30:00 [facility] Heart Rate 2021-08-14 17:15:00 [facility] [place] Respitory Rate 2021-08-14 17:15:00 [facility] [place] Systolic (mm Hg) 2021-08-14 17:15:00 [facility] Diastolic (mm Hg) 2021-08-14 17:15:00 [facility] [place] Heart Rate 2021-08-14 17:00:00 [facility] Respitory Rate 2021-08-14 17:00:00 [facility] Systolic (mm Hg) 2021-08-14 17:00:00 [facility] [place] Diastolic (mm Hg) 2021-08-14 17:00:00 [facility] Temperature Oral (F) 2021-08-14 16:45:00 36.2 Bri [facility] Temperature Oral (F) 2021-08-14 14:49:00 36.2 [facility] Height 2021-08-14 14:49:00 152 cm [facility] [place] Weight 2021-08-14 14:49:00 [facility] Procedures Procedure Date / Time Performing Clinician Source Performed POCT-GLUCOSE METER 2023-01-08 12:01:00 [facility] POCT-GLUCOSE METER 2023-01-08 07:29:00 [facility] CBC W/PLT COUNT & AUTO 2023-01-08 05:21:00 Tyler Barney [facility] PHOSPHORUS 2023-01-08 05:21:00 [facility] 2023-01-08 05:21:00 Savita [facility] D-DIMER 2023-01-08 05:21:00 Bharat [facility] Miguelito [facility] CBC W/PLT COUNT & AUTO 2023-01-08 05:21:00 Savita [facility] VENOUS DOPPLER LEGS 2023-01-07 21:09:00 [facility] POCT-GLUCOSE METER 2023-01-07 11:33:00 [facility] POCT-GLUCOSE METER 2023-01-07 08:05:00 [facility] CBC W/PLT COUNT & AUTO 2023-01-07 03:54:00 Savita [facility] PHOSPHORUS 2023-01-07 03:54:00 Savita [facility] MAGNESIUM 2023-01-07 03:54:00 Savita [facility] BASIC METABOLIC PANEL 2023-01-07 03:54:00 [facility] CBC W/PLT COUNT & AUTO 2023-01-07 03:54:00 Savita [facility] CT CHEST WITH IV CONTRAST 2023-01-06 20:56:24 Jackie Krishnamurthy [facility] CT ABDOMEN/PELVIS WITH IV 2023-01-06 20:54:00 Jackie Krishnamurthy [facility] POCT-GLUCOSE METER 2023-01-06 18:22:00 [facility] ECHO W/ DOPPLER 2023-01-06 10:30:00 [facility] (CW/PW/COLOR) [facility] XR CHEST 1 VIEW PORTABLE 2023-01-06 06:09:30 [facility] BASIC METABOLIC PANEL 2023-01-06 03:45:00 Talplora [facility] CBC W/PLT COUNT & AUTO 2023-01-06 03:45:00 KanakiTyler kim [facility] BLOOD GAS, ARTERIAL 2023-01-06 03:45:00 Trent Padilla [facility] PHOSPHORUS 2023-01-06 03:45:00 Kanakia [facility] MAGNESIUM 2023-01-06 03:45:00 Kanakia [facility] CBC W/PLT COUNT & AUTO 2023-01-06 03:45:00 [facility] MR BRAIN WITH & WITHOUT 2023-01-05 17:30:00 Savita [facility] IV CONTRAST [facility] ANTIBODY IDENTIFICATION 2023-01-05 12:12:00 Kendrick [facility] FIBRINOGEN 2023-01-05 08:43:00 [facility] BLOOD [facility], ARTERIAL 2023-01-05 08:43:00 Dee Villa [facility] BLOOD GAS, ARTERIAL 2023-01-05 06:15:00 Trent Padilla [facility] LIPID PANEL 2023-01-05 06:13:00 [facility] FIBRINOGEN 2023-01-05 06:13:00 [facility] HEMOGLOBIN A1C 2023-01-05 06:13:00 Trent Padilla [facility] RPR 2023-01-05 06:13:00 Trent Padilla [facility] CT BRAIN WITHOUT IV 2023-01-05 04:47:13 Trent Padilla [facility] PREPARE RBC 2023-01-05 02:49:00 Kendrick [facility] ABORH, MANUAL 2023-01-05 02:26:00 DomingoMaeve ribear [facility] ANTIBODY IDENTIFICATION 2023-01-05 02:20:00 MarksJojo rebolledo [facility] XR ABDOMEN/KUB 1 VIEW 2023-01-05 01:21:00 [facility] PORTABLE [facility] XR CHEST 1 VIEW PORTABLE 2023-01-05 01:16:00 [facility] / BEDSIDE Medical Center SD INSERT 2023-01-05 00:53:09 Lisa Fong [facility] CATH,ART,PERCUT,SHORTTERM [facility] ECG 12-LEAD 2023-01-05 00:49:47 [facility] 12-LEAD 2023-01-05 00:49:47 Unknown, Hl7 [facility] ECG 12-LEAD 2023-01-05 00:48:56 Unknown, Hl7 [facility] VITAMIN B12 2023-01-05 00:37:00 [facility] FIBRINOGEN 2023-01-05 00:37:00 [facility] PROTHROMBIN TIME/INR 2023-01-05 00:37:00 [facility] COMPREHENSIVE METABOLIC 2023-01-05 00:37:00 [facility] CBC W/PLT COUNT & AUTO 2023-01-05 00:37:00 [facility] DIFFERENTIAL [facility] MAGNESIUM 2023-01-05 00:37:00 [facility] PHOSPHORUS 2023-01-05 00:37:00 [facility] TSH/FREE T4 IF INDICATED 2023-01-05 00:37:00 [facility] HIGH SENSITIVITY TROPONIN 2023-01-05 00:37:00 [facility] HC LAB HIV-1 AG W/HIV-1&2 2023-01-05 00:37:00 Trent Padilla juana [facility] TYPE AND SCREEN, 2023-01-05 00:37:00 Crow Roth [facility] AUTOMATED [facility] CBC W/PLT COUNT & AUTO 2023-01-05 00:37:00 Crow Roth [facility] EKG-SCANNED 2023-01-05 00:00:00 Hawk Dash [facility] INSERT INTERLAMINAR 2022-09-07 17:39:00 [facility] DISTRACTION DEV. W/O FUSION SINGLE LEVEL LUMBAR [id number] (N/A)<sup>2</sup> INSERT INTERLAMINAR 2022-09-07 17:39:00 [facility] DISTRACTION DEV. W/O FUSION SECOND LEVEL LUMBAR [id number] (N/A)<sup>1</sup> PERCUTANEOUS 2021-08-14 16:33:00 [facility] LAMINOTOMY/LAMINECTOMY DECOM.NEURAL [facility]. W/IMAGE; SING/MULTI; UNI/SHIRA LUMBAR 0275T (N/A)<sup>1</sup> XR KNEE 3 VIEWS BILATERAL 2021-01-25 20:43:15 Martha Aguirre [place] [facility] History of tonsillectomy [facility] Arthroplasty of knee [facility] rmann Thyroidectomy [facility] Plan of Care Planned Activity Planned Date Details Comments Source Future Scheduled 2023-01-12 65+ PNEUMOCOCCAL Methodi [facility] Test 17:55:14 VACCINE (1 - PCV) [code = 65+ PNEUMOCOCCAL VACCINE (1 - PCV)] Future Scheduled 2023-01-12 COVID-19 VACCINE (3 - Me [facility] Test 17:55:14 season) [code = COVID-19 VACCINE (3 - season)] Future Scheduled 2023-01-12 INFLUENZA VACCINE (#1) [facility] Test 17:55:14 [code = INFLUENZA VACCINE (#1)] Future Scheduled 2023-01-12 SHINGLES VACCINES (1 Met [facility] Test 17:55:14 of 2) [code = SHINGLES VACCINES (1 of 2)] Future Scheduled 2023-01-12 RSV VACCINES > 60 YR Met [facility] Test 17:55:14 (1 - 1-dose 60+ series) [code = RSV VACCINES > 60 YR (1 - 1-dose 60+ series)] Future Scheduled 2023-01-06 SHINGLES VACCINES (1 Met [facility] Test 04:16:47 of 2) [code = SHINGLES VACCINES (1 of 2)] Future Scheduled 2023-01-06 65+ PNEUMOCOCCAL Methodi Hospital Test 04:16:47 VACCINE (1 - PCV) [code = 65+ PNEUMOCOCCAL VACCINE (1 - PCV)] Future Scheduled 2023-01-06 COVID-19 VACCINE (3 - Me [facility] Test 04:16:47 Pfizer series) [code = COVID-19 VACCINE (3 - Pfizer series)] Future Scheduled 2023-01-06 INFLUENZA VACCINE (#1) M [facility] Test 04:16:47 [code = INFLUENZA VACCINE (#1)] Future Scheduled 2023-01-05 SHINGLES VACCINES (1 Met [facility] Test 00:10:29 of 2) [code = SHINGLES VACCINES (1 of 2)] Future Scheduled 2023-01-05 65+ [facility] 00:10:29 VACCINE (1 - PCV) [code = 65+ PNEUMOCOCCAL VACCINE (1 - PCV)] Future Scheduled 2023-01-05 COVID-19 VACCINE (3 - Me [facility] Test 00:10:29 Pfizer series) [code = COVID-19 VACCINE (3 - Pfizer series)] Future Scheduled 2023-01-05 INFLUENZA VACCINE (#1) [facility] Test 00:10:29 [code = INFLUENZA VACCINE (#1)] Future Scheduled 2022-12-06 SHINGLES VACCINES (1 Met [facility] Test 05:56:19 of 2) [code = SHINGLES VACCINES (1 of 2)] Future Scheduled 2022-12-06 65+ PNEUMOCOCCAL Methodi Hospital Test 05:56:19 VACCINE (1 - PCV) [code = 65+ PNEUMOCOCCAL VACCINE (1 - PCV)] Future Scheduled 2022-12-06 COVID-19 VACCINE (3 - Me [facility] Test 05:56:19 Pfizer series) [code = COVID-19 VACCINE (3 - Pfizer series)] Future Scheduled 2022-12-06 INFLUENZA VACCINE (#1) [facility] Test 05:56:19 [code = INFLUENZA VACCINE (#1)] Future Scheduled 2022-11-30 Influenza Vaccine (#1) [facility] 00:00[facility]00 [code = Influenza Medical Ce nter Vaccine (#1)] Future Scheduled 2022-04-[address] [facility] Test 00:00:00 (12+) [code = Medical Center DEPRESSION SCREENING (12+)] Future Scheduled 2022-04-01 FALLS RISK SCREENING [facility] Test 00:00:00 [code = FALLS RISK Medical C enter SCREENING] Future Scheduled 2022-04-[address] [facility] Test 00:00:00 (12+) [code = Medical Center DEPRESSION SCREENING (12+)] Future Scheduled 2022-04-01 FALLS RISK SCREENING [facility] Test 00:00:00 [code = FALLS RISK Medical C enter SCREENING] Future Scheduled 2022-02-05 HEPATITIS B VACCINES Met [facility] Test 12:01:23 (1 of 3 - 3-dose series) [code = HEPATITIS B VACCINES (1 of 3 - 3-dose series)] Future Scheduled 2022-02-05 SHINGLES VACCINES (1 Met [facility] Test 12:01:23 of 2) [code = SHINGLES VACCINES (1 of 2)] Future Scheduled 2022-02-05 65+ [facility]AL [facility] 12:01:23 VACCINE (1 - PCV) [code = 65+ PNEUMOCOCCAL VACCINE (1 - PCV)] Future Scheduled 2022-02-05 COVID-19 VACCINE (3 - Me [facility] Test 12:01:23 Booster for Pfizer series) [code = COVID-19 VACCINE (3 - Booster for Pfizer series)] Future Scheduled 2022-02-05 INFLUENZA VACCINE Method [facility] Test 12:01:23 [code = INFLUENZA VACCINE] Future Scheduled 2021-12-18 HEPATITIS B VACCINES Met [facility] Test 02:47:18 (1 of 3 - 3-dose series) [code = HEPATITIS B VACCINES (1 of 3 - 3-dose series)] Future Scheduled 2021-12-18 SHINGLES VACCINES (1 Met [facility] Test 02:47:18 of 2) [code = SHINGLES VACCINES (1 of 2)] Future Scheduled 2021-12-18 65+ PNEUMOCOCCAL Methodi Hospital Test 02:47:18 VACCINE (1 - PCV) [code = 65+ PNEUMOCOCCAL VACCINE (1 - PCV)] Future Scheduled 2021-12-18 COVID-19 VACCINE ([facility] - [facility] Test 02:47:18 Booster for Pfizer series) [code = COVID-19 VACCINE (3 - Booster for Pfizer series)] Future Scheduled 2021-12-18 INFLUENZA VACCINE Method [facility] Test 02:47:18 [code = INFLUENZA VACCINE] Future Scheduled 2021-12-18 HEPATITIS B VACCINES Met [facility] Test 02:47:18 (1 of 3 - 3-dose series) [code = HEPATITIS B VACCINES (1 of 3 - 3-dose series)] Future Scheduled 2021-12-18 SHINGLES VACCINES (1 Met [facility] Test 02:47:18 of 2) [code = SHINGLES VACCINES (1 of 2)] Future Scheduled 2021-12-18 65+ PNEUMOCOCCAL Methodi Hospital Test 02:47:18 VACCINE (1 - PCV) [code = 65+ PNEUMOCOCCAL VACCINE (1 - PCV)] Future Scheduled 2021-12-18 COVID-19 VACCINE (3 - Me [facility] Test 02:47:18 Booster for Pfizer series) [code = COVID-19 VACCINE (3 - Booster for Pfizer series)] Future Scheduled 2021-12-18 INFLUENZA VACCINE [facility] Test 02:47:18 [code = INFLUENZA VACCINE] Future Scheduled 2021-02-27 COVID-19 VACCINE (4 - [facility] 00:[facility]00 Booster for Pfizer Medical C enter series) [code = COVID-19 VACCINE (4 - Booster for Pfizer series)] Future Scheduled 2020-07-21 COVID-19 VACCINE (3 - [facility] 00:00:00 Booster for Pfizer Medical C enter series) [code = COVID-19 VACCINE (3 - Booster for Pfizer series)] Future Scheduled 1999-04-[address] [facility] 00:00:00 WELLNESS (YEAR 2 or Medical Center FIRST YEAR if no IPPE) [code = MEDICARE ANNUAL WELLNESS (YEAR 2 or FIRST YEAR if no IPPE)] Future Scheduled 1999-04-[address] [facility] 00:00:00 WELLNESS (YEAR 2 or Medical Center FIRST YEAR if no IPPE) [code = MEDICARE ANNUAL WELLNESS (YEAR 2 or FIRST YEAR if no IPPE)] Future Scheduled 1998 PNEUMOCOCCAL 65+ YRS [facility] Test 00:00:00 (1 - PCV) [code = Medical Ce nter PNEUMOCOCCAL 65+ YRS (1 - PCV)] Future Scheduled 1998 PNEUMOCOCCAL 65+ YRS [facility] Test 00:00:00 (1 - PCV) [code = Medical Ce nter PNEUMOCOCCAL 65+ YRS (1 - PCV)] Future Scheduled 1983 SHINGLES VACCINES ([address] [facility] Test 00:00:00 of 2) [code = SHINGLES Medic al Center VACCINES (1 of 2)] Future Scheduled 1983 SHINGLES VACCINES ([address] [facility] Test 00:00:00 of 2) [code = SHINGLES Medic al Center VACCINES (1 of 2)] Future Scheduled 1952 DTAP/TDAP/TD VACCINES [facility] Test 00:00:00 (1 - Tdap) [code = Medical C enter DTAP/TDAP/TD VACCINES (1 - Tdap)] Future Scheduled 1952 DTAP/TDAP/TD VACCINES [facility] Test 00:00:00 (1 - Tdap) [code = Medical C enter DTAP/TDAP/TD VACCINES (1 - Tdap)] Future Scheduled [address] [facility] Test 00:00:00 Counseling and Medical Cente r Screening (12+) [code = Tobacco Cessation Counseling and Screening (12+)] Future Scheduled [address] [facility] Test 00:00:00 [facility] Cent[facility] r Screening (12+) [code = Tobacco Cessation Counseling and Screening (12+)] Future Scheduled SHINGLES VACCINES (#1) [facility] [code = SHINGLES VACCINES (#1)] Future Scheduled 65+ [facility]UMOCOCCAL [facility] Test VACCINE (1 of 1 - PPSV23) [code = 65+ PNEUMOCOCCAL VACCINE (1 of 1 - PPSV23)] Future Scheduled INFLUENZA VACCINE Method ist Hospital Test [code = INFLUENZA VACCINE] Encounters Start End Encounter Admission Attending Care Care Encounter Source Date/Time Date/Time Type Type Clinicians Facility Department ID 2023-01-07 Inpatient CHARIS AMBROSE [facility] [id number] [facility] 16:49:09 MARLA 2023-01-06 Inpatient CINTIA SAUCEDOH [facility] [id number] [facility] 20:53:52 JACKIE 2023-01-06 Inpatient REINA KRISHNAMURTHY SLEEzequiel [facility] [id number] [facility] 20:53:45 JACKIE 2023-01-06 Inpatient REINA MARKS [facility] [id number] [facility] 07:47:53 [facility] 2023-01-05 Inpatient REINA SLEEzequiel [facility] [id number] [facility] 16:15:54 2023-01-05 Inpatient RIENA MARKS [facility] [id number] [facility] 03:41:22 [facility] 2021-04-07 Outpatient Eileen, HCATB HCATB [id number] [facility] 13:49:43 Jhony 02 [facility] [place] 2021-01-25 Outpatient [facility] [id number] [place] 15:22:29 [facility] 2021-01-05 Inpatient REINA White HCATB MATY [id number] [facility] 12:30:00 Yung [id number] [facility] [place] 2020-12-21 Inpatient HCATB DANILO [id number] [facility] 12:58:00 [id number] [facility] [place] 2019-12-22 Inpatient Sun, HCATB RAD [id number] [facility] 09:00:00 Isai [id number] [facility] [place] 2023-02-12 2023-02-12 Outpatient REINA NEW SLEEzequiel SLE[facility] [id number] [facility] 00:00:00 00:00:00 MARLA 2023-01-12 2023-01-15 Inpatient ER FRANCISCO SLEEzequiel Internal [id number] [facility] 18:41:00 15:15:00 [facility] 2023-01-13 2023-01-13 Outpatient EL FRANCISCO SLEEzequiel SLEH [id number] [facility] 10:45:04 10:45:04 [facility] 2023-01-13 2023-01-13 Outpatient REINA SINGH SLEEzequiel SLEH [id number] [facility] 10:44:51 10:44:51 [facility] 2023-01-13 2023-01-13 Outpatient REINA FULLER SLEEzequiel SLEH [id number] [facility]H 05:36:07 05:36:07 ERIC 2023-01-11 2023-01-11 Telephone Ginette, [facility] [id number] 00:[facility] 00:00:00 Deesimoan Michelletchett [facility] 2023-01-10 2023-01-10 Telephone [place], [facility] [id number] 00:00[facility]00 00:00:00 [facility] 2023-01-05 2023-01-08 [facility] Jojo Marks [facility] [id number] [facility] 00:10[facility] 17:06:00 Encounter Jackie Krishnamurthy [facility] 2023-01-05 2023-01-08 Inpatient ER CINTIA NEW Neuro ICU [id number] [facility] 00:10:00 17:06:00 [facility] 2023-01-06 2023-01-06 Outpatient EL MARKS, SLEH SLEH [id number] [facility] 04:16:36 04:16:36 [facility] 2023-01-06 2023-01-06 Outpatient EL SLEH SLEH [id number] [facility] 00:00:00 00:00:00 2023-01-06 2023-01-06 Outpatient EL SLEH SLEH [id number] [facility] 00:00:00 00:00:00 2023-01-05 2023-01-05 Outpatient EL MARKS, SLEH SLEH [id number] [facility] 01:01:39 01:01:39 [facility] 2023-01-05 2023-01-05 Outpatient EL MARKS, SLEH SLEH [id number] [facility] 01:01:18 01:01:18 [facility] 2023-01-05 2023-01-[address] [facility] [id number] 00:00:00 00:00:00 [facility] 2022-09-07 2022-09-07 Outpatient MHIE TOPS [id number] [facility] 16:20:00 20:10:00 [facility] 2022-09-07 2022-09-07 Outpatient MHIE TOPS [id number] [facility] 16:20:00 20:10:00 [facility] 2022-09-07 2022-09-07 Outpatient Paek, [id number] 11:20:00 15:10:00 Randall 2 [facility] 2022-03-05 2022-03-05 Outpatient Franklin Jacobsen HCATB [facility] [id number] [facility] 15:38:00 15:38:00 47 [facility] [place] 2022-02-02 2022-02-02 Outpatient nullFlavo TSSH [id number] [facility]oria 16:12:29 18:10:00 r [facility] 2022-02-02 2022-02-02 Outpatient nullFlavo TSSH [id number] [facility]oria 16:12:29 18:10:00 r [facility] 2022-01-11 2022-01-11 [facility] [id number] [facility] 12:30:00 12:30:00 61 [facility] [place] 2021-08-14 2021-08-14 Outpatient nullFlavo TOPS [id number] Memoria 16:19:40 17:51:00 r [facility] 2021-08-14 2021-08-14 Outpatient nullFlavo TOPS [id number] [facility] 16:19:40 17:51:00 r [facility] 2021-08-14 2021-08-14 Outpatient Paek, [id number] 11:19:40 12:51:00 Randall 2 [facility] 2021-08-14 2021-08-14 Outpatient nullFlavo TSSH [id number] [facility] 11:19:40 12:51:00 r [facility] 2021-04-07 2021-04-07 Out[place] [id number] [facility] 12:13:00 12:13:00 Jhony [id number] [facility] [place] 2021-01-25 2021-01-25 Office EMMANUEL Aguirre [id number] [place] 14:53:11 15:52:[address] [facility] 350.58 [facility] [id number] [facility] [id number] 2021-01-05 2021-01-05 Outpatient REINA White, HCATB MATY [id number] [facility] 12:30:00 12:30:00 Yung 39 [facility] 2020-12-21 2020-12-21 Emergency EM John, HCATB DANILO [id number] [facility] 12:58:00 17:10:00 Michell Erlinda [facility] [place] 2020-08-10 2020-08-10 [facility] [place] [id number] [facility] 15:00:00 15:00:00 Yung [id number] [facility] [place] 2020-05-26 2020-05-26 Clinical John, [id number] Methodi 08:49:18 08:54:18 Support Leopoldo [id number] st P. 3.430.2.7 Hospit a .3.841187 l .8 2020-05-26 2020-05-26 Travel 1.2.840.1 1.2.838.763 [id number] Methodi 00:00:00 00:00:[address] 3.430.2.7 0.2.7.3.698 Ho spita .3.258199 084.8 l .8 2020-05-05 2020-05-05 Clinical 1.2.840.1 [id number] Methodi 08:57:20 09:02:[address] 3.430.2.7 Hospit a .3.892874 l .8 2020-05-05 2020-05-05 Travel 1.2.840.1 1.2.752.137 [id number] Methodi 00:00:00 00:00:[address] 3.430.2.7 0.2.7.3.698 Ho spita .3.745431 084.8 l .8 2020-01-01 2020-01-01 Outpatient REINA White, HCATB MATY [id number] 92-2 [facility] 12:00:00 12:00:00 Yung [id number] [facility] [place] 2019-12-17 2019-12-17 Outpatient Sun, HCATB LAB [id number] 2-2 [facility] 16:20:00 16:20:00 Isai [id number] [facility] [place] 2019-11-24 2019-11-25 Outpt Diag nullFlavo [facility] [id number] Memoria 15:01:00 04:59:00 Services r Outpatient 00 [facility] 2018-02-04 2018-03-06 OP Therapy nullFlavo [facility] [id number] Memoria 14:00:00 05:59:00 Patients r Eduardo 03 [facility] 2018-01-02 2018-02-01 OP Therapy nullFlavo [facility] [id number] Memoria 13:00:00 04:59:00 Patients r Eduardo 02 [facility] 2018-01-07 2018-01-08 Outpatient [facility]Flavo [facility] 4614 [id number] Memoria 15:54:00 04:59:00 r [facility] 82 [facility] 2017-12-30 2017-12-31 Bedded nullFlavo [facility] [id number] Memoria 14:45:00 20:43:00 Outpatient r [facility] 01 [facility] 2015-12-02 2016-01-01 OP Therapy nullFlavo [facility] [id number] Memoria 18:23:00 04:59:00 Patients r Eduardo 01 [facility] 2015-10-31 2015-11-30 OP Therapy nullFlavo [facility] [id number] Memoria 14:00:00 04:59:00 Patients r Eduardo 00 [facility] 2015-10-24 2015-10-26 Inpatient [facility]Flavo [facility] [id number] Memoria 11:48:00 19:33:00 r [facility] 00 [facility] Results Test Description Test Time Test Comments Results Result Comments Source BLOOD CULTURE 2023-01-18 12:02:37 Test Item Value Reference Range Interpretation Comme nts CULTURE (BEAKER) (test A From Aerobic Bottle Only Same code = 1095) organism has be en isolated from cultures(s) of the same body site and collec tion date. Repeat identification and susceptibility testing performed only after cons ultation with the clinical microb iology laboratory.Refe r to previous culture ofEsche richia coli GRAM STAIN RESULT From aerobic bottle (BEAKER) (test code = only: gram negative rods 1123) The specimen volume collected for this blood culture was below the optimum (10 mL per bottle or 20 mL total). Use of lower volumes may adversely affect recovery and/or detection times of some organisms.MRSA [id number] 09:17:17 Test Item Value Reference Range Interpretation Comments CULTURE (BEAKER) (test code No MRSA isolated = 1095) BLOOD [id number] 12:30:45 Test Item Value Reference Range Interpretation Comments CULTURE (BEAKER) (test ESCHERICHIA COLI A F rom Aerobic And code = 1095) Anaerobic Bottles Escherichia col i Amikacin (test code = S 1) Ampicillin + Sulbactam R (test code = 6) Aztreonam (test code = S 32) Cefepime (test code = S 51) Cefoxitin (test code = S 68) Ceftazidime (test code S = 27) Ceftriaxone (test code S = 52) Ertapenem (test code = S 38) Gentamicin (test code S = 18) Levofloxacin (test S code = 22) Meropenem (test code = S 34) Nitrofurantoin (test S code = 23) Piperacillin + S Tazobactam (test code = 29) Tetracycline (test S code = 2) Tobramycin (test code S = 25) Trimethoprim + S Sulfamethoxazole (test code = 47) GRAM STAIN RESULT From aerobic and (BEAKER) (test code = anaerobic 1123) bottles: gram negative rods (CELLAVISION MANUAL DIFF)2023-01-15 08:37:27 Test Item Value Reference Range Interpretation Comments NEUTROPHILS - REL 76 % (CELLAVISION)(BEAKER) (test code = 2816) LYMPHOCYTES - REL 8 % (CELLAVISION)(BEAKER) (test code = 2817) MONOCYTES - REL 7 % (CELLAVISION)(BEAKER) (test code = 2818) EOSINOPHILS - REL 3 % (CELLAVISION)(BEAKER) (test code = 2819) BASOPHILS - REL 1 % (CELLAVISION)(BEAKER) (test code = 2820) METAMYELOCYTES - REL 4 % 0-0 H (CELLAVISION)(BEAKER) (test code = 2821) BANDS - REL (CELLAVISION)(BEAKER) 1 % 0-10 (test code = 2826) NEUTROPHILS - ABS 7.52 K/ul 1.56-6.13 H (CELLAVISION)(BEAKER) (test code = 2830) LYMPHOCYTES - ABS 0.79 K/ul 1.18-3.74 L (CELLAVISION)(BEAKER) (test code = 2831) MONOCYTES - ABS 0.69 K/uL 0.24-0.36 H (CELLAVISION)(BEAKER) (test code = 2832) EOSINOPHILS - ABS 0.30 K/uL 0.04-0.36 (CELLAVISION)(BEAKER) (test code = 2834) BASOPHILS - ABS 0.10 K/uL 0.01-0.08 H (CELLAVISION)(BEAKER) (test code = 2835) METAMYELOCYTES - ABS 0.40 K/uL 0.00-0.00 H (CELLAVISION)(BEAKER) (test code = 2836) BANDS - ABS (CELLAVISION)(BEAKER) 0.10 K/uL 0.00-0.80 (test code = 2840) TOTAL COUNTED (BEAKER) (test code = 100 1351) WBC MORPHOLOGY (BEAKER) (test code Normal = 487) PLT MORPHOLOGY (BEAKER) (test code Normal = 486) POIKILOCYTES (BEAKER) (test code = 3+ many 966) ELLIPTOCYTES (BEAKER) (test code = 1+ few 962) OVALOCYTES (BEAKER) (test code = 1+ few 477) MARAI ELENA CELLS (BEAKER) (test code = 1+ few 474) ARTIFACT (CELLAVISION)(BEAKER) Present (test code = 3432) PLATELET CONCENTRATION Adequate (CELLAVISION)(BEAKER) (test code = 3438) Chemical Machine Tender ID - marcos Peck comments: Slide comments:CBC W/PLT COUNT & AUTO [id number] 08:37:26 Test Item Value Reference Range Interpretation Comments WHITE BLOOD CELL COUNT (BEAKER) 9.9 K/ L 3.5-10.5 (test code = 775) RED BLOOD CELL COUNT (BEAKER) 3.08 M/ L 3.93-5.22 L (test code = 761) HEMOGLOBIN (BEAKER) (test code = 10.0 GM/DL 11.2-15.7 L 410) HEMATOCRIT (BEAKER) (test code = 29.9 % 34.1-44.9 L 411) MEAN CORPUSCULAR VOLUME (BEAKER) 97 fL 79-95 H (test code = 753) MEAN CORPUSCULAR HEMOGLOBIN 32.5 pg 25.6-32.2 H (BEAKER) (test code = 751) MEAN CORPUSCULAR HEMOGLOBIN CONC 33.4 GM/DL 32.2-35.5 (BEAKER) (test code = 752) RED CELL DISTRIBUTION WIDTH 13.4 % 11.7-14.4 (BEAKER) (test code = 412) PLATELET COUNT (BEAKER) (test 147 K/CU MM 150-450 L code = 756) MEAN PLATELET VOLUME (BEAKER) 10.2 fL 9.4-12.3 (test code = 754) NUCLEATED RED BLOOD CELLS 0 /100 WBC 0-0 (BEAKER) (test code = 413) COMPREHENSIVE METABOLIC [id number] 06:53:53 Test Item Value Reference Range Interpretation Comments TOTAL PROTEIN 4.9 gm/dL 6.0-8.3 L (BEAKER) (test code = 770) ALBUMIN (BEAKER) 2.5 g/dL 3.5-5.0 L (test code = 1145) ALKALINE 108 U/L 40-150 PHOSPHATASE (BEAKER) (test code = 346) BILIRUBIN TOTAL 0.3 mg/dL 0.2-1.2 (BEAKER) (test code = 377) SODIUM (BEAKER) 138 meq/L 136-145 (test code = 381) POTASSIUM (BEAKER) 4.0 meq/L 3.5-5.1 (test code = 379) CHLORIDE (BEAKER) 109 meq/L 98-107 H (test code = 382) CO2 (BEAKER) (test 21 meq/L 22-29 L code = 355) BLOOD UREA 22 mg/dL 7-21 H NITROGEN (BEAKER) (test code = 354) CREATININE 1.26 mg/dL 0.57-1.25 H (BEAKER) (test code = 358) GLUCOSE RANDOM 95 mg/dL 70-105 (BEAKER) (test code = 652) CALCIUM (BEAKER) 8.3 mg/dL 8.4-10.2 L (test code = 697) AST (SGOT) 37 U/L 5-34 H (BEAKER) (test code = 353) ALT (SGPT) 32 U/L 6-55 (BEAKER) (test code = 347) EGFR (BEAKER) 41 Interpretatio n of eGFR (test code = 1092) mL/min/1.[address] age Description sq m Result G1 Angela l or high >=90 G2 Mildly decreased 60-89 G3a Mildl y to moderately 45-5 9 G3b Moderately to s everely 30-44 G4 Severl y decreased 15-29 G5 Kidney failure <15Reported eGF R is based on the CKD-EPI 2020 equation that d oes not use a race coefficientEsti mated GFR is not as accur ate as Creatinine Mariza pam in predicting glom erular filtration rate . Estimated GFR is not appl icable for dialysis patien ts Chemical Machine Tender ID - EMCOMPREHENSIVE METABOLIC [id number] 05:02:58 Test Item Value Reference Range Interpretation Comments TOTAL PROTEIN 4.5 gm/dL 6.0-8.3 L (BEAKER) (test code = 770) ALBUMIN (BEAKER) 2.4 g/dL 3.5-5.0 L (test code = 1145) ALKALINE 79 U/L 40-150 PHOSPHATASE (BEAKER) (test code = 346) BILIRUBIN TOTAL 0.4 mg/dL 0.2-1.2 (BEAKER) (test code = 377) SODIUM (BEAKER) 134 meq/L 136-145 L (test code = 381) POTASSIUM (BEAKER) 3.3 meq/L 3.5-5.1 L (test code = 379) CHLORIDE (BEAKER) 105 meq/L 98-107 (test code = 382) CO2 (BEAKER) (test 24 meq/L 22-29 code = 355) BLOOD UREA 25 mg/dL 7-21 H NITROGEN (BEAKER) (test code = 354) CREATININE 1.27 mg/dL 0.57-1.25 H (BEAKER) (test code = 358) GLUCOSE RANDOM 101 mg/dL 70-105 (BEAKER) (test code = 652) CALCIUM (BEAKER) 8.0 mg/dL 8.4-10.2 L (test code = 697) AST (SGOT) 33 U/L 5-34 (BEAKER) (test code = 353) ALT (SGPT) 26 U/L 6-55 (BEAKER) (test code = 347) EGFR (BEAKER) 40 Interpretatio n of eGFR (test code = 1092) mL/min/1.[address] age Description sq m Result G1 Angela l or high >=90 G2 Mildly decreased 60-89 G3a Mildl y to moderately 45-5 9 G3b Moderately to s everely 30-44 G4 Severl y decreased 15-29 G5 Kidney failure <15Reported eGF R is based on the CKD-EPI 2020 equation that d oes not use a race coefficientEsti mated GFR is not as accur ate as Creatinine Mariza pam in predicting glom erular filtration rate . Estimated GFR is not appl icable for dialysis patien ts Chemical Machine Tender ID - JODY WVANCOMYCIN LEVEL, [id number] 04:57:33 Test Item Value Reference Range Interpretation Comments VANCOMYCIN RANDOM (BEAKER) (test 5.0 ug/mL code = 523) Reference Range: No NormalsOperator ID - JODY WCBC W/PLT COUNT & AUTO [id number] 04:48:50 Test Item Value Reference Range Interpretation Comments WHITE BLOOD CELL COUNT (BEAKER) 11.7 K/ L 3.5-10.5 H (test code = 775) RED BLOOD CELL COUNT (BEAKER) 2.93 M/ L 3.93-5.22 L (test code = 761) HEMOGLOBIN (BEAKER) (test code = 9.4 GM/DL 11.2-15.7 L 410) HEMATOCRIT (BEAKER) (test code = 28.6 % 34.1-44.9 L 411) MEAN CORPUSCULAR VOLUME (BEAKER) 98 fL 79-95 H (test code = 753) MEAN CORPUSCULAR HEMOGLOBIN 32.1 pg 25.6-32.2 (BEAKER) (test code = 751) MEAN CORPUSCULAR HEMOGLOBIN CONC 32.9 GM/DL 32.2-35.5 (BEAKER) (test code = 752) RED CELL DISTRIBUTION WIDTH 13.2 % 11.7-14.4 (BEAKER) (test code = 412) PLATELET COUNT (BEAKER) (test 143 K/CU MM 150-450 L code = 756) MEAN PLATELET VOLUME (BEAKER) 10.3 fL 9.4-12.3 (test code = 754) NUCLEATED RED BLOOD CELLS 0 /100 WBC 0-0 (BEAKER) (test code = 413) NEUTROPHILS RELATIVE PERCENT 79 % (BEAKER) (test code = 429) LYMPHOCYTES RELATIVE PERCENT 9 % (BEAKER) (test code = 430) MONOCYTES RELATIVE PERCENT 10 % (BEAKER) (test code = 431) EOSINOPHILS RELATIVE PERCENT 0 % (BEAKER) (test code = 432) BASOPHILS RELATIVE PERCENT 0 % (BEAKER) (test code = 437) NEUTROPHILS ABSOLUTE COUNT 9.14 K/ L 1.56-6.13 H (BEAKER) (test code = 670) LYMPHOCYTES ABSOLUTE COUNT 1.03 K/ L 1.18-3.74 L (BEAKER) (test code = 414) MONOCYTES ABSOLUTE COUNT (BEAKER) 1.13 K/ L 0.24-0.36 H (test code = 415) EOSINOPHILS ABSOLUTE COUNT 0.05 K/ L 0.04-0.36 (BEAKER) (test code = 416) BASOPHILS ABSOLUTE COUNT (BEAKER) 0.05 K/ L 0.01-0.08 (test code = 417) IMMATURE GRANULOCYTES-RELATIVE 2.10 % 0.00-1.00 H PERCENT (BEAKER) (test code = 2801) BLOOD CULTURE IDENTIFICATION [id number] 17:10:43 Test Item Value Reference Interpretation Comments Range MCR-1 (BEAKER) (test Not detected Not detected Note: A ntimicrobial code = 1055316922) resistanc e can occur via multiple mechanisms. A N ot Detected result for antimicrobial resistance gene (s) does not indica te antimicrobial susceptibility. Subculturing is required for sp ecies identification and susceptibility testing of isol ates. CTX-M (BEAKER) (test Not detected Not detected Note: A ntimicrobial code = 3317030962) resistanc e can occur via multiple mechanisms. A N ot Detected result for antimicrobial resistance gene (s) does not indica te antimicrobial susceptibility. Subculturing is required for sp ecies identification and susceptibility testing of isol ates. IMP ([place]) (test code = Not detected Not Detected Note: Antimicrobial 0220283606) resistance can occur via multiple mechanisms. A N ot Detected result for antimicrobial resistance gene (s) does not indica te antimicrobial susceptibility. Subculturing is required for sp ecies identification and susceptibility testing of isol ates. KPC (BKR) (test code Not detected Not detected Note: A ntimicrobial = 5707515587) resistance can occur via multiple mechanisms. A N ot Detected result for antimicrobial resistance gene (s) does not indica te antimicrobial susceptibility. Subculturing is required for sp ecies identification and susceptibility testing of isol ates. NDM (BKR) (test code Not detected Not Detected Note: A ntimicrobial = 3373061724) resistance can occur via multiple mechanisms. A N ot Detected result for antimicrobial resistance gene (s) does not indica te antimicrobial susceptibility. Subculturing is required for sp ecies identification and susceptibility testing of isol ates. OXA-48-LIKE (BKR) Not detected Not Detected Note: Anti microbial (test code = resistance can occur 1017592497) via multiple mechanisms. A N ot Detected result for antimicrobial resistance gene (s) does not indica te antimicrobial susceptibility. Subculturing is required for sp ecies identification and susceptibility testing of isol ates. VIM (BKR) (test code Not detected Not detected Note: A ntimicrobial = 1466894168) resistance can occur via multiple mechanisms. A N ot Detected result for antimicrobial resistance gene (s) does not indica te antimicrobial susceptibility. Subculturing is required for sp ecies identification and susceptibility testing of isol ates. MEC A/C ([place]) (test Non Applicable Not detected code = 5046674084) MEC A/C AND MREJ Non Applicable Not Detected (MRSA) [place] (test code = 5476088493) VAN A/B (VANCOMYCIN Non Applicable Not detected RESISTANCE) (test code = 9628810871) ENTEROCOCCUS FAECALIS Not detected Not detected (BKR) (test code = 2105705523) ENTEROCOCCUS FAECIUM Not detected Not detected (BKR) (test code = 4195310085) LISTERIA Not detected Not detected MONOCYTOGENES (test code = 20160102) STAPHYLOCOCCUS (test Not detected Not detected code = 3137718) STAPHYLOCOCCUS AUREUS Not detected Not detected (test code = 20160307) STAPHYLOCOCCUS Not detected Not detected EPIDERMIDIS ([place]) (test code = 8874586332) STAPHYLOCOCCUS Not detected Not detected LUGDENENSIS (BKR) (test code = 1198823032) STREPTOCOCCUS (test Not detected Not detected code = 8759993) STREPTOCOCCUS Not detected Not detected AGALACTIAE (GROUP B) (test code = 0457288) STREPTOCOCCUS Not detected Not detected PNEUMONIAE (test code = 0856518) STREPTOCOCCUS Not detected Not detected PYOGENES (GROUP A) (test code = 0473760) ACINETOBACTER Not detected Not detected CALCOACETICUS-FREDDIE II COMPLEX (BKR) (test code = 7712) BACTEROIDES FRAGILIS Not detected Not detected ([place]) (test code = 0682104281) ENTEROBACTERALES Detected Not detected A (test code = 6146434490) ENTEROBACTER CLOACOE Not detected Not detected COMPLEX (test code = 7807888) ESCHERICHIA COLI Detected Not detected A No mechanis ms of (test code = 6810170) resist ance tested on this panel were detected.First line therapy: Ceftriaxone.De- escal ate based on susceptibilitie s Note: While CTX -M is the most common ESBL enzyme, other E SBL enzymes may be present and are not detected on thi s panel. KLEBSIELLA AEROGENES Not detected Not detected (BKR) (test code = 1337574534) KLEBSIELLA OXYTOCA Not detected Not detected (test code = 3187430) KLEBSIELLA PNEUMONIAE Not detected Not detected GROUP (test code = 7689063015) PROTEUS (test code = Not detected Not detected 0138600) SALMONELLA SPECIES Not detected Not detected ([place]) (test code = 9864658198) SERRATIA MARCESCENS Not detected Not detected (test code = 3806844) HAEMOPHILUS Not detected Not detected INFLUENZAE (test code = 3581542) NEISSERIA Not detected Not detected MENINGITIDIS (test code = 6078370) PSEUDOMONAS Not detected Not detected AERUGINOSA-BEAKER (test code = 9479377) STENOTROPHOMONAS Not detected Not detected MALTOPHILIA (BKR) (test code = 6888980089) WILLIE ALBICANS Not detected Not detected (test code = 2677351) WILLIE AURIS ([place]) Not detected Not detected (test code = 3264346324) WILLIE GLABRATA Not detected Not detected (test code = 9229189) WILLIE KRUSEI (test Not detected Not detected code = 3272932) WILLIE PARAPSILOSIS Not detected Not detected (test code = 2499254) WILLIE TROPICALIS Not detected Not detected (BKR) (test code = 0176120) CRYPTOCOCCUS Not detected Not detected NEOFORMANS/GATTII (test code = 2743051623) Other bacteria and resistance markers not targeted by this PCR panel cannot be excluded; therefore clinical correlation and follow up of serology, culture results, and other molecular studies is required. The results are not intended to be used as the sole means for clinical diagnosis or patient management decisions. This sample was tested at the [facility] using the [employer] 3D Blood Culture ID Panel. It is FDA cleared and has been verified and approved by the [facility] for clinical use. This laboratory is CLIA-certified and College ofAmerican Pathologists (CAP)-accredited to perform high complexity testing.URINALYSIS W/ [id number] 14:04:59 Test Item Value Reference Range Interpretation Comments COLOR (BEAKER) (test code = Light Yellow 470) CLARITY (BEAKER) (test code = Cloudy 469) SPECIFIC GRAVITY UA (BEAKER) 1.017 1.001-1.035 (test code = 468) PH UA (BEAKER) (test code = 6.0 5.0-8.0 467) PROTEIN UA (BEAKER) (test code 50 mg/dL Negative A = 464) GLUCOSE UA (BEAKER) (test code Negative Negative = 365) KETONES UA (BEAKER) (test code Negative Negative = 371) BILIRUBIN UA (BEAKER) (test Negative Negative code = 462) BLOOD UA (BEAKER) (test code = Small Negative A 461) NITRITE UA (BEAKER) (test code Negative Negative = 465) LEUKOCYTE ESTERASE UA (BEAKER) Moderate Negative A (test code = 466) UROBILINOGEN UA (BEAKER) (test 0.2 0.2-1.0 code = 463) RBC UA (BEAKER) (test code = 8 /HPF 519) WBC UA (BEAKER) (test code = 40 /HPF 520) BACTERIA (BEAKER) (test code = Rare 517) SQUAMOUS EPITHELIAL (BEAKER) < /HPF (test code = 516) CRYSTALS, URINE (BEAKER) (test Rare None Seen A code = 1521) YEAST (BEAKER) (test code = Occasional 1585) SOURCE(BEAKER) (test code = Urine, Voided 1285) Chemical Machine Tender ID - [auto]Chemical Machine Tender ID - techXR ANKLE 2 VIEWS [id number] 12:03:00 [facility] 1935 Sex: FEXAMINATION: XR LEG / TIBIA AND FIBULA 2 VIEWS RIGHT, XR ANKLE 2 VIEWSRIGHT.INDICATION: 87-year-old female with point tenderness along the distalshin.COMPARISON: None.FINDINGS:Right tibia/fibula and ankle:Postsurgical changes status post right knee arthroplasty. No evidence ofacute fracture or dislocation. Joint spaces are preserved. No osseouserosions. No aggressive osseous lesions. Bone mineralization is withinnormal limits. Soft tissues are unremarkable.IMPRESSION:Right tibia/fibula and ankle:1. No acute osseous abnormality on plain film.2. Postsurgical changes status post right knee arthroplasty.Electronically Signed By: Alessio Zeng01/13/2023 12:05 CDTWorkstation Name: [id number] LEG / TIBIA AND FIBULA 2 VIEWS [id number] 12:03[facility]00[facility] : 1935 Sex: FEXAMINATION: XR LEG / TIBIA AND FIBULA 2 VIEWS RIGHT, XR ANKLE 2 VIEWSRIGHT.INDICATION: 87-year-old female with point tenderness along the distalshin.COMPARISON: None.FINDINGS:Right tibia/fibula and ankle:Postsurgical changes status post right knee arthroplasty. No evidence ofacute fracture or dislocation. Joint spaces are preserved. No osseouserosions. No aggressive osseous lesions. Bone mineralization is withinnormal limits. Soft tissues are unremarkable.IMPRESSION:Right tibia/fibula and ankle:1. No acute osseous abnormality on plain film.2. Postsurgical changes status post right knee arthroplasty.Electronically Signed By: Alessio Zeng01/13/2023 12:05 CDTWorkstation Name: [id number] 11:33:10 Test Item Value Reference Range Interpretation Comments HEMOGLOBIN A1C 5.9 % See_Comment H [Automated m essage] ELECTROPHORESIS (BESensbeat) The system which (test code = 3811) generated this result transmitted ref erence range: <=5.6%. The reference range was not used to int erpret this result as normal/abnormal . "The A1c is measured using a NGSP-certified method. HbA1c value equal to or greater than 6.5% as thediagnosis cutoff for diabetes. An HbA1c value of 5.7- 6.4% indicates increased risk for diabetes (prediabetes)."Chemical Machine Tender ID - ADMXR CHEST 1 VIEW PORTABLE / [id number] 08:10:41 [facility] 1935 Sex: FEXAMINATION: XR CHEST 1 VIEW PORTABLE / BEDSIDE.INDICATION: 87-year-old female with pneumonia.COMPARISON: CT chest dated 01/06/2023. Chest radiograph dated 01/06/2023.FINDINGS:Patient is rotated to the left, limiting the examination. The cardiacsilhouette is normal in size. Mild calcification of the thoracic aorta.Bibasilar atelectasis. No pleural effusion. No pneumothorax. No acuteosseous abnormality.Visualized soft tissues are unremarkable.IMPRESSION:Patient is rotated to the left, limiting the exam ination. Bibasilaratelectasis.Electronically Signed By: Alessio eZng01/13/2023 08:12 CDTWorkstation Name: [id number] ACID LEVEL, [id number] 05:11:59 Test Item Value Reference Range Interpretation Comments VALPROIC ACID TOTAL (BEAKER) (test 49 ug/mL 50-100 L code = 924) Therapeutic range for some clinical conditions may be >100 ug/mLPROTHROMBIN TIME/[id number] 05:10:38 Test Item Value Reference Range Interpretation Comments PROTIME (BEAKER) (test code = 14.8 seconds 11.9-14.2 H 759) INR (BEAKER) (test code = 370) 1.15 <=5.90 RECOMMENDED COUMADIN/WARFARIN INR THERAPY RANGESSTANDARD DOSE: 2.0 - 3.0 Includes: PROPHYLAXIS for venous thrombosis, systemic embolization; TREATMENT for venous thrombosis and/or pulmonary embolus.HIGH RISK: Target INR is 2.5-3.5 for patients with mechanical heart valves.BASIC METABOLIC [id number] 05:10:20 Test Item Value Reference Range Interpretation Comments SODIUM (BEAKER) 136 meq/L 136-145 (test code = 381) POTASSIUM 3.9 meq/L 3.5-5.1 Specimen slight ly (BEAKER) (test hemolyzed code = 379) CHLORIDE (BEAKER) 102 meq/L 98-107 (test code = 382) CO2 (BEAKER) 21 meq/L 22-29 L (test code = 355) BLOOD UREA 34 mg/dL 7-21 H NITROGEN (BEAKER) (test code = 354) CREATININE 1.62 mg/dL 0.57-1.25 H Specimen slight ly (BEAKER) (test hemolyzed code = 358) GLUCOSE RANDOM 93 mg/dL 70-105 (BEAKER) (test code = 652) CALCIUM (BEAKER) 8.5 mg/dL 8.4-10.2 (test code = 697) EGFR (BEAKER) 30 Interpretatio n of eGFR (test code = mL/min/1.73 values Stage De scription 1092) sq m Result G1 Angela l or high >=90 G2 Mildly decreased 60-89 G3a Mildl y to moderately 45-5 9 G3b Moderately to s everely 30-44 G4 Severl y decreased 15-29 G5 Kidney failure <15Reported eGF R is based on the CKD-EPI 2020 equation that d oes not use a race coefficientEsti mated GFR is not as accur ate as Creatinine Mariza pam in predicting glom erular filtration rate . Estimated GFR is not appl icable for dialysis patien ts Chemical Machine Tender ID - BSHEPATIC FUNCTION [id number] 05:10:20 Test Item Value Reference Range Interpretation Comments TOTAL PROTEIN (BEAKER) 5.4 gm/dL 6.0-8.3 L Speci men slightly (test code = 770) hemolyzed ALBUMIN (BEAKER) (test 2.8 g/dL 3.5-5.0 L Speci men slightly code = 1145) hemolyzed BILIRUBIN TOTAL 0.4 mg/dL 0.2-1.2 Specimen sli ghtly (BEAKER) (test code = hemoly zed 377) BILIRUBIN DIRECT 0.2 mg/dL 0.1-0.5 Specimen sl ightly (BEAKER) (test code = hemoly zed 706) ALKALINE PHOSPHATASE 96 U/L 40-150 (BEAKER) (test code = 346) AST (SGOT) (BEAKER) 30 U/L 5-34 Specimen slightly (test code = 353) hemolyzed ALT (SGPT) (BEAKER) 19 U/L 6-55 Specimen slightly (test code = 347) hemolyzed Chemical Machine Tender ID - [id number] 05:10:19 Test Item Value Reference Range Interpretation Comments MAGNESIUM (BEAKER) 1.8 mg/dL 1.6-2.6 Specimen slightly (test code = 627) hemolyzed Chemical Machine Tender ID - [id number] 05:10:19 Test Item Value Reference Range Interpretation Comments PHOSPHORUS (BEAKER) 2.8 mg/dL 2.3-4.7 Specimen slightly (test code = 604) hemolyzed Chemical Machine Tender ID - BSCBC W/PLT COUNT & AUTO [id number] 05:01:06 Test Item Value Reference Range Interpretation Comments WHITE BLOOD CELL COUNT (BEAKER) 17.6 K/ L 3.5-10.5 H (test code = 775) RED BLOOD CELL COUNT (BEAKER) 3.22 M/ L 3.93-5.22 L (test code = 761) HEMOGLOBIN (BEAKER) (test code = 10.4 GM/DL 11.2-15.7 L 410) HEMATOCRIT (BEAKER) (test code = 31.6 % 34.1-44.9 L 411) MEAN CORPUSCULAR VOLUME (BEAKER) 98 fL 79-95 H (test code = 753) MEAN CORPUSCULAR HEMOGLOBIN 32.3 pg 25.6-32.2 H (BEAKER) (test code = 751) MEAN CORPUSCULAR HEMOGLOBIN CONC 32.9 GM/DL 32.2-35.5 (BEAKER) (test code = 752) RED CELL DISTRIBUTION WIDTH 13.1 % 11.7-14.4 (BEAKER) (test code = 412) PLATELET COUNT (BEAKER) (test 182 K/CU MM 150-450 code = 756) MEAN PLATELET VOLUME (BEAKER) 10.6 fL 9.4-12.3 (test code = 754) NUCLEATED RED BLOOD CELLS 0 /100 WBC 0-0 (BEAKER) (test code = 413) NEUTROPHILS RELATIVE PERCENT 88 % (BEAKER) (test code = 429) LYMPHOCYTES RELATIVE PERCENT 6 % (BEAKER) (test code = 430) MONOCYTES RELATIVE PERCENT 5 % (BEAKER) (test code = 431) EOSINOPHILS RELATIVE PERCENT 0 % (BEAKER) (test code = 432) BASOPHILS RELATIVE PERCENT 0 % (BEAKER) (test code = 437) NEUTROPHILS ABSOLUTE COUNT 15.56 K/ L 1.56-6.13 H (BEAKER) (test code = 670) LYMPHOCYTES ABSOLUTE COUNT 0.99 K/ L 1.18-3.74 L (BEAKER) (test code = 414) MONOCYTES ABSOLUTE COUNT (BEAKER) 0.82 K/ L 0.24-0.36 H (test code = 415) EOSINOPHILS ABSOLUTE COUNT 0.01 K/ L 0.04-0.36 L (BEAKER) (test code = 416) BASOPHILS ABSOLUTE COUNT (BEAKER) 0.04 K/ L 0.01-0.08 (test code = 417) IMMATURE GRANULOCYTES-RELATIVE 1.10 % 0.00-1.00 H PERCENT (BEAKER) (test code = 2801) POC-Glucose [id number] 12:25:08 Test Item Value Reference Range Interpretation Comments POC-Glucose Meter (test 118 mg/dL 70-110 H : TE STED AT [facility] code = 1538) [address] [facility], 770 30: Chemical Machine Tender/Techni lucio ID = [id number] for Allison Castillou Lab Interpretation (test Abnormal code = 63343-4) [facility] [id number] 12:25:08 Test Item Value Reference Range Interpretation Comments POC-GLUCOSE METER 118 mg/dL 70-110 H : TESTED A T [facility] 6720 (BEAKER) (test code = [facility], 1538) [address]: Chemical Machine Tender/Techni lucio ID = [id number] for Arron ehAllisonu POCT-GLUCOSE [id number] 07:50:39 Test Item Value Reference Range Interpretation Comments POC-GLUCOSE METER 91 mg/dL 70-110 : TESTED A T [facility] 6720 (BEAKER) (test code = [facility], 1538) [address]: Chemical Machine Tender/Techni lucio ID = [id number] for Allison Castillou [id number] 06:05:55 Test Item Value Reference Range Interpretation Comments MAGNESIUM (BEAKER) (test code = 2.0 mg/dL 1.6-2.6 627) Chemical Machine Tender ID - [id number] 06:05:55 Test Item Value Reference Range Interpretation Comments PHOSPHORUS (BEAKER) (test code = 2.6 mg/dL 2.3-4.7 604) Chemical Machine Tender ID - [id number] 05:49:32 Test Item Value Reference Range Interpretation Comments D-DIMER QUANTITATIVE (BEAKER) 1.21 MG/L FEU <0.50 H (test code = 671) Intended Use: The D-Dimer Assay can be used to aid in the diagnosis of Deep Vein Thrombosis (DVT) and Pulmonary Embolism Disease (PED).In patients with low pre- test probability, various studies concerning STA Liatest D-dimer test have reported that with a cutoff value of 0.50 MG/L FEU, the Negative Predictive Value (NPV) regarding the exclusion of thrombosis is within 95-100% range.CBC W/PLT COUNT & AUTO [id number] 05:34:30 Test Item Value Reference Range Interpretation Comments WHITE BLOOD CELL COUNT (BEAKER) 6.4 K/ L 3.5-10.5 (test code = 775) RED BLOOD CELL COUNT (BEAKER) 3.74 M/ L 3.93-5.22 L (test code = 761) HEMOGLOBIN (BEAKER) (test code = 12.1 GM/DL 11.2-15.7 410) HEMATOCRIT (BEAKER) (test code = 36.7 % 34.1-44.9 411) MEAN CORPUSCULAR VOLUME (BEAKER) 98 fL 79-95 H (test code = 753) MEAN CORPUSCULAR HEMOGLOBIN 32.4 pg 25.6-32.2 H (BEAKER) (test code = 751) MEAN CORPUSCULAR HEMOGLOBIN CONC 33.0 GM/DL 32.2-35.5 (BEAKER) (test code = 752) RED CELL DISTRIBUTION WIDTH 11.9 % 11.7-14.4 (BEAKER) (test code = 412) PLATELET COUNT (BEAKER) (test 150 K/CU MM 150-450 code = 756) MEAN PLATELET VOLUME (BEAKER) 9.8 fL 9.4-12.3 (test code = 754) NUCLEATED RED BLOOD CELLS 0 /100 WBC 0-0 (BEAKER) (test code = 413) NEUTROPHILS RELATIVE PERCENT 60 % (BEAKER) (test code = 429) LYMPHOCYTES RELATIVE PERCENT 26 % (BEAKER) (test code = 430) MONOCYTES RELATIVE PERCENT 11 % (BEAKER) (test code = 431) EOSINOPHILS RELATIVE PERCENT 3 % (BEAKER) (test code = 432) BASOPHILS RELATIVE PERCENT 1 % (BEAKER) (test code = 437) NEUTROPHILS ABSOLUTE COUNT 3.83 K/ L 1.56-6.13 (BEAKER) (test code = 670) LYMPHOCYTES ABSOLUTE COUNT 1.63 K/ L 1.18-3.74 (BEAKER) (test code = 414) MONOCYTES ABSOLUTE COUNT (BEAKER) 0.69 K/ L 0.24-0.36 H (test code = 415) EOSINOPHILS ABSOLUTE COUNT 0.19 K/ L 0.04-0.36 (BEAKER) (test code = 416) BASOPHILS ABSOLUTE COUNT (BEAKER) 0.03 K/ L 0.01-0.08 (test code = 417) IMMATURE GRANULOCYTES-RELATIVE 0.50 % 0.00-1.00 PERCENT (BEAKER) (test code = 2801) [id number] 14:34:44 Test Item Value Reference Range Interpretation Comments RPR SCREEN (BEAKER) (test code = Nonreactive Nonreactive 420) POCT-GLUCOSE [id number] 11:48:53 Test Item Value Reference Range Interpretation Comments POC-GLUCOSE METER 128 mg/dL 70-110 H : TESTED A T [facility] 6720 (BEAKER) (test code = [facility], 1538) [address]: Chemical Machine Tender/Techni lucio ID = [id number] for RO DGERS, ESSENCEECA POCT-GLUCOSE [id number] 08:17:58 Test Item Value Reference Range Interpretation Comments POC-GLUCOSE METER 103 mg/dL 70-110 : TESTED A T [facility] 6720 (BEAKER) (test code = [facility], 1538) [address]: Chemical Machine Tender/Techni lucio ID = [id number] for RO DGERS, ESSENCEECA [id number] 04:42:59 Test Item Value Reference Range Interpretation Comments MAGNESIUM (BEAKER) (test code = 2.1 mg/dL 1.6-2.6 627) Chemical Machine Tender ID - [id number] 04:42:59 Test Item Value Reference Range Interpretation Comments PHOSPHORUS (BEAKER) (test code = 2.3 mg/dL 2.3-4.7 604) Chemical Machine Tender ID - BSBASIC METABOLIC [id number] 04:42:58 Test Item Value Reference Range Interpretation Comments SODIUM (BEAKER) 135 meq/L 136-145 L (test code = 381) POTASSIUM 4.0 meq/L 3.5-5.1 (BEAKER) (test code = 379) CHLORIDE (BEAKER) 102 meq/L 98-107 (test code = 382) CO2 (BEAKER) 27 meq/L 22-29 (test code = 355) BLOOD UREA 15 mg/dL 7-21 NITROGEN (BEAKER) (test code = 354) CREATININE 0.80 mg/dL 0.57-1.25 (BEAKER) (test code = 358) GLUCOSE RANDOM 94 mg/dL 70-105 (BEAKER) (test code = 652) CALCIUM (BEAKER) 8.7 mg/dL 8.4-10.2 (test code = 697) EGFR (BEAKER) 70 Interpretatio n of eGFR (test code = mL/min/1.73 values Stage De scription 1092) sq m Result G1 Angela l or high >=90 G2 Mildly decreased 60-89 G3a Mildl y to moderately 45-5 9 G3b Moderately to s everely 30-44 G4 Severl y decreased 15-29 G5 Kidney failure <15Reported eGF R is based on the CKD-EPI 2020 equation that d oes not use a race coefficientEsti mated GFR is not as accur ate as Creatinine Mariza pam in predicting glom erular filtration rate . Estimated GFR is not appl icable for dialysis patien ts Chemical Machine Tender ID - BSCBC W/PLT COUNT & AUTO [id number] 04:13:28 Test Item Value Reference Range Interpretation Comments WHITE BLOOD CELL COUNT (BEAKER) 6.8 K/ L 3.5-10.5 (test code = 775) RED BLOOD CELL COUNT (BEAKER) 3.48 M/ L 3.93-5.22 L (test code = 761) HEMOGLOBIN (BEAKER) (test code = 11.7 GM/DL 11.2-15.7 410) HEMATOCRIT (BEAKER) (test code = 35.2 % 34.1-44.9 411) MEAN CORPUSCULAR VOLUME (BEAKER) 101 fL 79-95 H (test code = 753) MEAN CORPUSCULAR HEMOGLOBIN 33.6 pg 25.6-32.2 H (BEAKER) (test code = 751) MEAN CORPUSCULAR HEMOGLOBIN CONC 33.2 GM/DL 32.2-35.5 (BEAKER) (test code = 752) RED CELL DISTRIBUTION WIDTH 12.0 % 11.7-14.4 (BEAKER) (test code = 412) PLATELET COUNT (BEAKER) (test 158 K/CU MM 150-450 code = 756) MEAN PLATELET VOLUME (BEAKER) 10.1 fL 9.4-12.3 (test code = 754) NUCLEATED RED BLOOD CELLS 0 /100 WBC 0-0 (BEAKER) (test code = 413) NEUTROPHILS RELATIVE PERCENT 54 % (BEAKER) (test code = 429) LYMPHOCYTES RELATIVE PERCENT 31 % (BEAKER) (test code = 430) MONOCYTES RELATIVE PERCENT 10 % (BEAKER) (test code = 431) EOSINOPHILS RELATIVE PERCENT 5 % (BEAKER) (test code = 432) BASOPHILS RELATIVE PERCENT 1 % (BEAKER) (test code = 437) NEUTROPHILS ABSOLUTE COUNT 3.65 K/ L 1.56-6.13 (BEAKER) (test code = 670) LYMPHOCYTES ABSOLUTE COUNT 2.11 K/ L 1.18-3.74 (BEAKER) (test code = 414) MONOCYTES ABSOLUTE COUNT (BEAKER) 0.67 K/ L 0.24-0.36 H (test code = 415) EOSINOPHILS ABSOLUTE COUNT 0.31 K/ L 0.04-0.36 (BEAKER) (test code = 416) BASOPHILS ABSOLUTE COUNT (BEAKER) 0.05 K/ L 0.01-0.08 (test code = 417) IMMATURE GRANULOCYTES-RELATIVE 0.30 % 0.00-1.00 PERCENT (BEAKER) (test code = 2801) CT ABDOMEN/PELVIS WITH IV [id number] 00:26:05 [facility] 1935 Sex: FEXAM: CT Abdomen and Pelvis With Intravenous ContrastCLINICAL INDICATION: has brain mass, concern for malignancyTECHNIQUE: Axial computed tomography images of the abdomen and pelviswith intravenous contrast. This CT exam was performed using one or moreof the following dose reduction techniques: automated exposure control,adjustment of the mA and/or kV according to patient size, and/or use ofiterative reconstruction technique.COMPARISON: No relevant prior studies available.FINDINGS:Lung bases: Unremarkable. No mass. No consolidation.Mediastinum: 6.4 cm hiatal hernia.ABDOMEN:Liver: Unremarkable. No mass.Gallbladder and bile ducts: Unremarkable. No calcified stones. Noductal dilation.Pancreas: Unremarkable. No mass. No ductal dilation.Spleen: Unremarkable. No splenomegaly.Adrenals: Unremarkable. No mass.Kidneys and ureters: Unremarkable. No solid mass. No hydronephrosis.Stomach and bowel: Unremarkable. No obstruction. No mucosalthickening.PELVIS:Appendix: The appendix is normal. Bowel loops are nondilated. No acuteinflammatory changes are seen involving the bowel.Bladder: Unremarkable. No mass.Reproductive: Unremarkable as visualized.ABDOMEN and PELVIS:Intraperitoneal space: Unremarkable. No free air. No significantfluid collection.Bones/joints: Moderate degenerative changes are seen throughoutthespine. No acute fracture or destructive bone lesion is seen. Nodislocation.Soft tissues: Unremarkable.Vasculature: The abdominal aorta is mildly calcified but nondilated.There is no aneurysm or dissection.Lymph nodes: Unremarkable. No enlarged lymph nodes.IMPRESSION:The appendix is normal. Bowel loops are nondilated. No acuteinflammatory changes are seen involving the bowel. Limited process isseenin the abdomen or pelvis.No mass lesion or lymphadenopathy is identified.Electronically Signed By: Thomas Contreras01/07/2023 00:29 CDTWorkstation Name: [id number] CHEST WITH IV [id number] 00:12:58 [facility] 1935 Sex: FEXAM: CT Chest With Intravenous ContrastCLINICAL INDICATION: has brain mass, concern for malignancyTECHNIQUE: Axial computed tomography images of the chest withintravenous contrast. This CT exam was performed using one or more ofthe following dose reduction techniques: automated exposure control,adjustment of the mA and/or kV according to patient size, and/or use ofiterative reconstruction technique.COMPARISON: Chest x-ray from January 05, 2023FINDINGS:Lungs and pleural spaces: Small amount of scarring and/or subsegmentalatelectasis in both lung bases. No acute appearing infiltrate or masslesion is seen. No pneumothorax. No significant effusion.Heart: Unremarkable. No cardiomegaly. No significant pericardialeffusion. No significant coronary artery calcifications.Mediastinum: 6.4 cm hiatal hernia con taining a portion of the stomach.Bones/joints: Unremarkable. No acute fracture. No dislocation.Soft tissues: Unremarkable.Vasculature: There is a nonocclusive filling defect in the left mainpulmonary artery extending partially into the level of the branchesconsistent with pulmonary embolism. The remainder of the pulmonaryarterial tree is unremarkable. The thoracic aorta is mildly calcifiedbut nondilated. There is no aneurysm or dissection.Lymph nodes: Unremarkable. No enlarged lymph nodes.IMPRESSION:1. There is a nonocclusive filling defect in the left main pulmonaryartery extending partially into the level of the branches consistentwith pulmonary embolism. The remainder of the pulmonary arterial tree isunremarkable. The clot burden is low. The RV/LV ratio is within normallimits measuring 0.85.2.The thoracic aorta is mildly calcified but nondilated. There is noaneurysm or dissection.3. Small amount of scarring and/or subsegmental atelectasis in bothlung bases. No acute appearing infiltrate or mass lesion is seen. Moderate multilevel degenerative changes throughout the spine. There ismild scoliosis. No acute fracture or destructive bone lesion is seen. Pulmonary embolism findings were relayedto the patient's nurse, Becki 0012 hours.Electronically Signed By: Thomas Contreras01/07/2023 00:16 CDT Workstation Name: [id number] 18:33:27 Test Item Value Reference Range Interpretation Comments POC-GLUCOSE METER 143 mg/dL 70-110 H : TESTED A T [facility] 6720 (Yorder) (test code = [place], 1538) [address]: Chemical Machine Tender/Techni lucio ID = [id number] for Loni Rdz XR CHEST 1 VIEW PORTABLE / [id number] 08:13:42 [facility] 1935 Sex: FChest one view:HISTORY: Intubated patientComparison: Previous day's studySupport apparatus: The nasogastric tube and endotracheal tube have beenremoved in the interval.There is limited subsegmental atelectasis in the left base. Noconsolidation or pleural effusion is noted. There is no pneumothorax.Cardiac size is within normal limits.Electronically Signed By: Jo Fink01/06/2023 08:15 CDTWorkstation Name: [id number] METABOLIC [id number] 04:29:51 Test Item Value Reference Range Interpretation Comments SODIUM (BEAKER) 137 meq/L 136-145 (test code = 381) POTASSIUM 3.5 meq/L 3.5-5.1 (BEAKER) (test code = 379) CHLORIDE (BEAKER) 104 meq/L 98-107 (test code = 382) CO2 (BEAKER) 27 meq/L 22-29 (test code = 355) BLOOD UREA 12 mg/dL 7-21 NITROGEN (BEAKER) (test code = 354) CREATININE 0.74 mg/dL 0.57-1.25 (BEAKER) (test code = 358) GLUCOSE RANDOM 100 mg/dL 70-105 (BEAKER) (test code = 652) CALCIUM (BEAKER) 8.1 mg/dL 8.4-10.2 L (test code = 697) EGFR (BEAKER) 77 Interpretatio n of eGFR (test code = mL/min/1.73 values Stage De scription 1092) sq m Result G1 Angela l or high >=90 G2 Mildly decreased 60-89 G3a Mildl y to moderately 45-5 9 G3b Moderately to s everely 30-44 G4 Severl y decreased 15-29 G5 Kidney failure <15Reported eGF R is based on the CKD-EPI 2020 equation that d oes not use a race coefficientEsti mated GFR is not as accur ate as Creatinine Mariza pam in predicting glom erular filtration rate . Estimated GFR is not appl icable for dialysis patien ts Chemical Machine Tender ID - [id number] 04:29:51 Test Item Value Reference Range Interpretation Comments MAGNESIUM (BEAKER) (test code = 2.4 mg/dL 1.6-2.6 627) Chemical Machine Tender ID - [id number] 04:29:51 Test Item Value Reference Range Interpretation Comments PHOSPHORUS (BEAKER) (test code = 2.7 mg/dL 2.3-4.7 604) Chemical Machine Tender ID - BSBlood gas, [id number] 04:00:51 Test Item Value Reference Range Interpretation Comments pH, Arterial (test code 7.46 7.35-7.45 H = 2744-1) pCO2, Arterial (test 40 See_Comment [Autom ated message] code = 2019-8) The system [employer] generated this result transmit luana reference range : 35 - 45 mm Hg. The reference range was not used to interpret this result as normal/abnormal . pO2, Arterial (test 217 See_Comment H [Automa luana message] code = 2703-7) The system [employer] generated this result transmit luana reference range : 80 - 90 mm Hg. The reference range was not used to interpret this result as normal/abnormal . O2 Sat, Arterial (test 99.5 % 96.0-97.0 H code = 2708-6) HCO3, Arterial (test 28 mmol/L 21-29 code = 1960-4) Base Excess, Arterial 3.9 mmol/L -2.0-3.0 H (test code = 1925-7) Patient Temperature 37.0 (test code = 8310-5) FIO2 (test code = 1819) 32.0 Lab Interpretation Abnormal (test code = 49918-8) [facility], [id number] 04:00:51 Test Item Value Reference Range Interpretation Comments PH ARTERIAL (BEAKER) (test code = 7.46 7.35-7.45 H 383) PCO2 ARTERIAL (BEAKER) (test code 40 mm Hg 35-45 = 384) PO2 ARTERIAL (BEAKER) (test code = 217 mm Hg 80-90 H 385) O2 SATURATION ARTERIAL (BEAKER) 99.5 % 96.0-97.0 H (test code = 386) HCO3 ARTERIAL (BEAKER) (test code 28 mmol/L 21-29 = 388) BASE EXCESS ARTERIAL (BEAKER) 3.9 mmol/L -2.0-3.0 H (test code = 387) PATIENT TEMPERATURE (BEAKER) (test 37.0 code = 1818) FIO2 (BEAKER) (test code = 1819) 32.0 CBC W/PLT COUNT & AUTO [id number] 03:59:12 Test Item Value Reference Range Interpretation Comments WHITE BLOOD CELL COUNT 6.8 K/ L 3.5-10.5 (BEAKER) (test code = 775) RED BLOOD CELL COUNT 3.48 M/ L 3.93-5.22 L (BEAKER) (test code = 761) HEMOGLOBIN (BEAKER) 11.3 GM/DL 11.2-15.7 (test code = 410) HEMATOCRIT (BEAKER) 34.4 % 34.1-44.9 (test code = 411) MEAN CORPUSCULAR 99 fL 79-95 H Discordant results VOLUME (BEAKER) (test compar ed to code = 753) previous, clini maria ines correlation required. MEAN CORPUSCULAR 32.5 pg 25.6-32.2 H HEMOGLOBIN (BEAKER) (test code = 751) MEAN CORPUSCULAR 32.8 GM/DL 32.2-35.5 HEMOGLOBIN CONC (BEAKER) (test code = 752) RED CELL DISTRIBUTION 12.5 % 11.7-14.4 WIDTH (BEAKER) (test code = 412) PLATELET COUNT 129 K/CU MM 150-450 L (BEAKER) (test code = 756) MEAN PLATELET VOLUME 9.9 fL 9.4-12.3 (BEAKER) (test code = 754) NUCLEATED RED BLOOD 0 /100 WBC 0-0 CELLS (BEAKER) (test code = 413) NEUTROPHILS RELATIVE 62 % PERCENT (BEAKER) (test code = 429) LYMPHOCYTES RELATIVE 24 % PERCENT (BEAKER) (test code = 430) MONOCYTES RELATIVE 10 % PERCENT (BEAKER) (test code = 431) EOSINOPHILS RELATIVE 3 % PERCENT (BEAKER) (test code = 432) BASOPHILS RELATIVE 1 % PERCENT (BEAKER) (test code = 437) NEUTROPHILS ABSOLUTE 4.17 K/ L 1.56-6.13 COUNT (BEAKER) (test code = 670) LYMPHOCYTES ABSOLUTE 1.62 K/ L 1.18-3.74 COUNT (BEAKER) (test code = 414) MONOCYTES ABSOLUTE 0.70 K/ L 0.24-0.36 H COUNT (BEAKER) (test code = 415) EOSINOPHILS ABSOLUTE 0.23 K/ L 0.04-0.36 COUNT (BEAKER) (test code = 416) BASOPHILS ABSOLUTE 0.04 K/ L 0.01-0.08 COUNT (BEAKER) (test code = 417) IMMATURE 0.30 % 0.00-1.00 GRANULOCYTES-RELATIVE PERCENT (BEAKER) (test code = 2801) MR BRAIN WITH & WITHOUT IV [id number] 19:03:19 [facility] 1935 Sex: FMR BRAIN WITH & WITHOUT IV CONTRASTINDICATION: Stroke, follow upBrain mass or lesionPLEASE PERFORM STEALTH PROTOCOL FOR POSSIBLE SURGICAL PLANNINGTechnique: MRI of the brain utilizing axial T1, T2, FLAIR, GRE, DWI,sagittal T1; and postgadolinium axial, sagittal, and coronal T1-weightedimages.COMPARISON: NoneFINDINGS:1.8 cm enhancing lesion with peripheral hemosiderin deposition(intralesional hemorr claudia) within the left parietal lobe. Adjacentvasogenic edema with localized mass effect and sulcal effacement but nomidline shift or herniation.No restricted diffusion to suggest recent ischemic insult. Scattered T2/FLAIR hyperintense foci within the periventricular andsubcortical white matter are nonspecific, however, statisticallyrepresent chronic microvascular ischemic changes.No hydrocephalus.Orbits are within normal limits. Prior bilateral lens surgery.No obstructive paranasal sinus disease.Additional findings: None.IMPRESSION:1.8 cm enhancing lesion with peripheral hemosiderin deposition(intralesional hemorrhage) within the left parietal lobe. Adjacentvasogenic edema with localized mass effect and sulcal effacement but nomidline shift or herniation.Electronically Signed By: Peggy Bee01/05/2023 19:05 CDTWorkstation Name: [id number] 12:12:00 Test Item Value Reference Range Interpretation Comments ANTIBODY ID ([facility]) Absc-EEowv-J (test code = 2253) Antibody Consult SIGNED OUT Anti C and Anti D (test code = 2479) causes RB C injury, transfuse C and D negative RBCs.Electronic Signature: Damaris Li M.D. [facility] BeachFIBRINOGEN2023-10-07 09:00:06 Test Item Value Reference Range Interpretation Comments FIBRINOGEN LEVEL (BEAKER) (test 411 mg/dl 225-434 code = 658) HEMOGLOBIN [id number] 08:55:47 Test Item Value Reference Range Interpretation Comments HEMOGLOBIN A1C 5.9 % See_Comment H [Automated m essage] ELECTROPHORESIS ([facility]) The system which (test code = 3811) generated this result transmitted ref erence range: <=5.6%. The reference range was not used to int erpret this result as normal/abnormal . "The A1c is measured using a NGSP-certified method. HbA1c value equal to or greater than 6.5% as thediagnosis cutoff for diabetes. An HbA1c value of 5.7- 6.4% indicates increased risk for diabetes (prediabetes)."Chemical Machine Tender ID - ADMBLOOD GAS, [id number] 08:50:37 Test Item Value Reference Range Interpretation Comments PH ARTERIAL (CBTecAKER) (test code = 7.58 7.35-7.45 H 383) PCO2 ARTERIAL (BEAKER) (test code 28 mm Hg 35-45 L = 384) PO2 ARTERIAL (BEAKER) (test code = 116 mm Hg 80-90 H 385) O2 SATURATION ARTERIAL (BEAKER) 98.7 % 96.0-97.0 H (test code = 386) HCO3 ARTERIAL (BEAKER) (test code 26 mmol/L 21-29 = 388) BASE EXCESS ARTERIAL (BEAKER) 5.2 mmol/L -2.0-3.0 H (test code = 387) PATIENT TEMPERATURE (BEAKER) (test 38.0 code = 1818) FIO2 (BEAKER) (test code = 1819) 30.0 VITAMIN [id number] 07:21:13 Test Item Value Reference Range Interpretation Comments VITAMIN B12 (BEAKER) (test code = 896 pg/mL 213-816 H 774) LIPID [id number] 06:48:27 Test Item Value Reference Range Interpretation Comments TRIGLYCERIDES (BEAKER) (test code = 75 mg/dL 540) CHOLESTEROL (BEAKER) (test code = 156 mg/dL 631) HDL CHOLESTEROL (BEAKER) (test code 67 mg/dL = 976) LDL CHOLESTEROL CALCULATED (BEAKER) 74 mg/dL (test code = 633) Triglyceride Reference Range: Low Risk <150 Borderline 150-199 High Risk 200- 499 Very High Risk >=500Cholesterol Reference Range: Low Risk <200 Borderline 200-239 High Risk >240HDL Cholesterol Reference Range: Low Risk >=60 High Risk <40LDL Cholesterol Reference Range: Optimal <100 Near Optimal 100-129 Borderline 130-159 High 160-189 Very High >=190 Chemical Machine Tender ID - [id number] 06:34:29 Test Item Value Reference Range Interpretation Comments FIBRINOGEN LEVEL (BEAKER) (test 401 mg/dl 225-434 code = 658) BLOOD GAS, [id number] 06:27:20 Test Item Value Reference Range Interpretation Comments PH ARTERIAL (BEAKER) (test code = 7.64 7.35-7.45 HH 383) PCO2 ARTERIAL (BEAKER) (test code 25 mm Hg 35-45 L = 384) PO2 ARTERIAL (BEAKER) (test code = 210 mm Hg 80-90 H 385) O2 SATURATION ARTERIAL (BEAKER) 99.6 % 96.0-97.0 H (test code = 386) HCO3 ARTERIAL (BEAKER) (test code 26 mmol/L 21-29 = 388) BASE EXCESS ARTERIAL (BEAKER) 6.2 mmol/L -2.0-3.0 H (test code = 387) PATIENT TEMPERATURE (BEAKER) (test 37.2 code = 1818) FIO2 (BEAKER) (test code = 1819) 50.0 CT BRAIN WITHOUT IV [id number] 05:00:28 [facility] : 1935 Sex: FEXAM/TECHNIQUE: Noncontrast CT of the head. Dose modulation, iterativereconstruction, and/or weight based adjustment of the mA/kV was utilizedto reduce the radiation dose to as low as reasonably achievable.INDICATION: Intracranial hemorrhage.COMPARISON: None.FINDINGS: Curvilinear acute blood products are present in the left parietal lobeGray-white differentiation is preserved. No acute intracranialhemorrhage. No extra-axial fluid collection.Ventricles are normal in appearance. Basal cisterns are patent. Nomidline shift. Cerebellar tonsils are normal in appearance.Status post bilateral lens surgery. Otherwise, orbits are unremarkable.Paranasal sinuses are clear. Mastoid air cells are clear. No acuteosseous processes or suspicious osseous lesion. Midline structures arenormal. Visualized face and neck are unremarkable.IMPRESSION:Curvilinear acute blood products are present in the left parietal lobeand may be intra-axial. This could be better evaluated with MRI brainwith and without IV contrast. No territorial infarct is identified,though smaller region of ischemia is possible.Per review of notes, f indings are known to treating team.Electronically Signed By: Byron Damon 05:03 CDTWorkstation Name: [id number] ANTIGEN WITH HIV- 1/2 [id number] 03:37:33 Test Item Value Reference Range Interpretation Comments HIV-1 ANTIGEN WITH HIV 1\\T\\2 Nonreactive Nonreactive ANTIBODY (2) (BEAKER) (test code = 2586) Chemical Machine Tender ID - BSPrepare [id number] 02:49:00 Test Item Value Reference Range Interpretation Comments Unit ABO (test code = A Neg 8758917) UNIT NUMBER (test code = E748451549936 934-0) Status (test code = 6369712) READY Blood Bank Product (test code RED BLOOD CELLS = 2263) PRODUCT CODE (test code = H0658S37 933-2) CROSSMATCH (test code = 2264) COMPATIBLE [facility] [id number] 02:49:00 Test Item Value Reference Range Interpretation Comments Unit ABO (test code = A Neg 6895534) UNIT NUMBER (test code = [id number] 934-0) Status (test code = 4097522) READY Blood Bank Product (test code RED BLOOD CELLS = 2263) PRODUCT CODE (test code = P0999K88 933-2) CROSSMATCH (test code = 2264) COMPATIBLE [facility] [id number] 02:20:00ANTIBODY ID (PATRICIA)Ynln-GWyjl-C SAFETRACE TXCommunity Hospital of Long BeachXR ABDOMEN/KUB 1 VIEW [id number] 02:15:27 [facility] 1935 Sex: FEXAM/TECHNIQUE: Single view frontal radiograph of the chest. Frontalradiograph of the abdomen.INDICATION: intubated, gastric tube.COMPARISON: None.FINDINGS: Devices/Objects: Gastric tube and sidehole terminate in the expectedlocation of the stomach. Endotracheal tube terminates near the elsie.Lungs: No focal consolidation. No pleural effusion. No pneumothorax.Heart/Mediastinum: No cardiomegaly. No interstitial thickening.Osseous: No acute osseous process. No suspicious osseous lesion.Abdomen: Nonobstructive bowel gas pattern.IMPRESSION:Gastric tube and sidehole terminate in the expected location ofthestomach. Endotracheal tube terminates near the elsie.Electronically Signed By: Byron Damon 02:18 CDTWorkstation Name: [id number] CHEST 1 VIEW PORTABLE / [id number] 02:15:27 [facility] 1935 Sex: FEXAM/TECHNIQUE: Single view frontal radiograph of the chest. Frontalradiograph of the abdomen.INDICATION: intubated, gastric tube.COMPARISON: None.FINDINGS: Devices/Objects: Gastric tube and sidehole terminate in the expectedlocation of the stomach. Endotracheal tube terminates near the elsie.Lungs: No focal consolidation. No pleural effusion. No pneumothorax.Heart/Mediastinum: No cardiomegaly. No interstitial thickening.Osseous: No acute osseous process. No suspicious osseous lesion.Abdomen: Nonobstructive bowel gas pattern.IMPRESSION:Gastric tube and sidehole terminate in the expected location ofthestomach. Endotracheal tube terminates near the elsie.Electronically Signed By: Byron Damon 02:18 CDTWorkstation Name: [id number]/FREE T4 IF [id number] 01:30:16 Test Item Value Reference Range Interpretation Comments THYROID STIMULATING HORMONE 2.187 uIU/mL 0.350-4.940 (BEAKER) (test code = 772) Chemical Machine Tender ID - BSHIGH SENSITIVITY TROPONIN [id number] 01:15:55 Test Item Value Reference Range Interpretation Comments HIGH SENSITIVITY TROPONIN I (test 111 pg/ml <=17 H code = 7671427) Chemical Machine Tender ID - BSThe ZOO KEEPER STAT High Sensitivity Troponin-I results should be used in conjunctionwith other diagnostic information such as ECG, clinical observations and information, and patient symptoms to aid in the diagnosis of IA.COMPREHENSIVE METABOLIC [id number] 01:09:14 Test Item Value Reference Range Interpretation Comments TOTAL PROTEIN 6.3 gm/dL 6.0-8.3 (BEAKER) (test code = 770) ALBUMIN (BEAKER) 3.8 g/dL 3.5-5.0 (test code = 1145) ALKALINE 36 U/L 40-150 L PHOSPHATASE (BEAKER) (test code = 346) BILIRUBIN TOTAL 1.2 mg/dL 0.2-1.2 (BEAKER) (test code = 377) SODIUM (BEAKER) 136 meq/L 136-145 (test code = 381) POTASSIUM (BEAKER) 3.5 meq/L 3.5-5.1 (test code = 379) CHLORIDE (BEAKER) 98 meq/L 98-107 (test code = 382) CO2 (BEAKER) (test 26 meq/L 22-29 code = 355) BLOOD UREA 23 mg/dL 7-21 H NITROGEN (BEAKER) (test code = 354) CREATININE 0.87 mg/dL 0.57-1.25 (BEAKER) (test code = 358) GLUCOSE RANDOM 115 mg/dL 70-105 H (BEAKER) (test code = 652) CALCIUM (BEAKER) 9.4 mg/dL 8.4-10.2 (test code = 697) AST (SGOT) 33 U/L 5-34 (BEAKER) (test code = 353) ALT (SGPT) 21 U/L 6-55 (BEAKER) (test code = 347) EGFR (BEAKER) 64 Interpretatio n of eGFR (test code = 1092) mL/min/1.[address] age Description sq m Result G1 Angela l or high >=90 G2 Mildly decreased 60-89 G3a Mildl y to moderately 45-5 9 G3b Moderately to s everely 30-44 G4 Severl y decreased 15-29 G5 Kidney failure <15Reported eGF R is based on the CKD-EPI 2021 equation that d oes not use a race coefficientEsti mated GFR is not as accur ate as Creatinine Mariza pam in predicting glom erular filtration rate . Estimated GFR is not appl icable for dialysis patien ts Chemical Machine Tender ID - [id number] 01:09:14 Test Item Value Reference Range Interpretation Comments PHOSPHORUS (BEAKER) (test code = 2.1 mg/dL 2.3-4.7 L 604) Chemical Machine Tender ID - [id number] 01:09:13 Test Item Value Reference Range Interpretation Comments MAGNESIUM (BEAKER) (test code = 1.9 mg/dL 1.6-2.6 627) Chemical Machine Tender ID - [id number] 00:57:24 Test Item Value Reference Range Interpretation Comments FIBRINOGEN LEVEL (BEAKER) (test 419 mg/dl 225-434 code = 658) PROTHROMBIN TIME/[id number] 00:55:35 Test Item Value Reference Range Interpretation Comments PROTIME (BEAKER) (test code = 13.5 seconds 11.9-14.2 759) INR (BEAKER) (test code = 370) 1.02 <=5.90 RECOMMENDED COUMADIN/WARFARIN INR THERAPY RANGESSTANDARD DOSE: 2.0 - 3.0 Includes: PROPHYLAXIS for venous thrombosis, systemic embolization; TREATMENT for venous thrombosis and/or pulmonary embolus.HIGH RISK: Target INR is 2.5-3.5 for patients with mechanical heart valves.CBC W/PLT COUNT & AUTO [id number] 00:45:53 Test Item Value Reference Range Interpretation Comments WHITE BLOOD CELL COUNT (BEAKER) 7.4 K/ L 3.5-10.5 (test code = 775) RED BLOOD CELL COUNT (BEAKER) 3.94 M/ L 3.93-5.22 (test code = 761) HEMOGLOBIN (BEAKER) (test code = 12.8 GM/DL 11.2-15.7 410) HEMATOCRIT (BEAKER) (test code = 37.2 % 34.1-44.9 411) MEAN CORPUSCULAR VOLUME (BEAKER) 94 fL 79-95 (test code = 753) MEAN CORPUSCULAR HEMOGLOBIN 32.5 pg 25.6-32.2 H (BEAKER) (test code = 751) MEAN CORPUSCULAR HEMOGLOBIN CONC 34.4 GM/DL 32.2-35.5 (BEAKER) (test code = 752) RED CELL DISTRIBUTION WIDTH 12.1 % 11.7-14.4 (BEAKER) (test code = 412) PLATELET COUNT (BEAKER) (test 145 K/CU MM 150-450 L code = 756) MEAN PLATELET VOLUME (BEAKER) 10.1 fL 9.4-12.3 (test code = 754) NUCLEATED RED BLOOD CELLS 0 /100 WBC 0-0 (BEAKER) (test code = 413) NEUTROPHILS RELATIVE PERCENT 79 % (BEAKER) (test code = 429) LYMPHOCYTES RELATIVE PERCENT 13 % (BEAKER) (test code = 430) MONOCYTES RELATIVE PERCENT 7 % (BEAKER) (test code = 431) EOSINOPHILS RELATIVE PERCENT 1 % (BEAKER) (test code = 432) BASOPHILS RELATIVE PERCENT 0 % (BEAKER) (test code = 437) NEUTROPHILS ABSOLUTE COUNT 5.87 K/ L 1.56-6.13 (BEAKER) (test code = 670) LYMPHOCYTES ABSOLUTE COUNT 0.99 K/ L 1.18-3.74 L (BEAKER) (test code = 414) MONOCYTES ABSOLUTE COUNT (BEAKER) 0.49 K/ L 0.24-0.36 H (test code = 415) EOSINOPHILS ABSOLUTE COUNT 0.04 K/ L 0.04-0.36 (BEAKER) (test code = 416) BASOPHILS ABSOLUTE COUNT (BEAKER) 0.03 K/ L 0.01-0.08 (test code = 417) IMMATURE GRANULOCYTES-RELATIVE 0.30 % 0.00-1.00 PERCENT (BEAKER) (test code = 2801) - [facility] [id number] 16:14:00 [facility] 1935 Sex: FPatient Name: VEENA HULL Unit No: [id number] EXAMS: CPT: [id number] XR CHEST 2 V 69375 COMPARISON: December 21, 2020. CHEST RADIOGRAPHS -FRONTAL AND LATERAL VIEWS. INDICATION: Shortness ofbreath. FINDINGS: The lungs are clear. No consolidation or effusion is seen. The hilar regions and pulmonary vasculature are unremarkable. Cardiac silhouette is normal. IMPRESSION: No acute lung disease. at 1614 Reported and signed by: Alla Lorenzo MD CC: Franklin Toledo MD Technologist: Junito Pratt Fluoro Time: DAP (Gy m2): Air Kerma (mGy): Trscr Dt/Tm: 03/05/2022 (1614) by:[email or web address] Orig Print D/T: S: 03/05/2022 (1617) BATCH NO: N/A Name: VEENA HULL [facility] [place] Phys: BEAJA.03 - Franklin Toledo [address] [facility] : 1935 Age: 86 Sex: F Tal Mejia Loc: T.YASSINE Exam Date: 03/05/2022 Status: REGCLI PH: FAX: PAGE 1 Signed Report- MG 3D SCREENING DIG [id number] 17:24:00 [facility] : 1935 Sex: FPatient Name: VEENA HULL Unit No: [id number] EXAMS: CPT: [id number] MG 3D SCREENING DIG [facility] CLINICAL: Z12.31 Screening Mammogram. The patient denies any current breast complaints. Digitalbreast tomosynthesis imaging has been obtained as part of this examination. COMPARISON(S): Comparison is made to exam(s) dated: 01/05/2021, 01/01/2020, 12/29/2018. FINDINGS: Breast Composition CategoryA: The breast tissue is predominately fatty. Current study was also evaluated with a Computer Aided Detection (CAD) system. There are benign- appearing calcifications which appear similar without a suspicious [...] [facility] specialized breast radiologists follow the [employer] Guidelines of annual screening mammography after age 40. Please note that imaging studies do not have 100% sensitivity, therefore a negative exam should not delay further workup/biopsy or follow-up of a clinically suspicious finding. This exam was interpreted at the [place] location. Abbie Borja M.D. mt/:01/12/2022 17:24:21 Letter: Normal BI-RADS Category 2: Benign Name: VEENA HULL [facility] Phys:CRAIG.Delisa - Franklin Toledo : 1935 Age: 86 Sex: F Edie Mejia Loc:T.ADAMARIS Exam Date: 01/11/2022 Status: PRE REF PH: FAX: PAGE 1 Signed Report (CONTINUED) Patient Name: VEENA HULL Unit No: [id number] EXAMS: CPT: [id number] MG 3D SCREENING DIG WCAD (Continued) at 1724 Reported and signed by: Abbie Borja MD CC: Franklin Toledo MD Technologist: Trskushal Dt/Tm: 01/12/2022 (1724) by:MILLER Orig Print D/T: S: 01/15/2022 (141) BATCH NO: N/A Name: VEENA HULL [facility] Phys: BEAJA.03 - Franklin Toledo : 1935 Age: 86 Sex: F Edie Mejia Loc: Alyssa.ADAMARIS Exam Date: 01/11/2022 Status: PRE REF PH: FAX: PAGE 2 Signed Report- MRI L-SPINE W/O [id number] 13:46:00 [facility] : 1935 Sex: FPatient Name: VEENA HULL Unit No: [id number] EXAMS: CPT: [id number] MRI L-SPINE W/O CONT 98359 EXAMINATION: MR LUMBAR SPINE WITHOUT CONTRAST CLINICAL INFORMATION: Lumbar radiculopathy. TECHNIQUE: Noncontrast multiplanar MRI examination of the lumbar spine. COMPARISON: CT dated 08/10/2020 FINDINGS: 5 lumbar type vertebral bodies are present when correlated to the CT examination. Note that there is bilateral lumbosacral transitional anatomy with sacralization of L5 on both sides on the basisof pseudoarthrosis between the transverse processes and adjacent [...] the lumbar spine present. Spinal cord terminates atL1. Numerous small synovial cysts are surrounding the bilateral L3-L4 facet joints, best seen on sagittal series 5, image 9 as well as sagittal series 5, image 15, secondary to severe facet arthritis. Paravertebral and paraspinal soft tissues are otherwise intact. Numerous benign-appearing bilateral subcentimeter T2 hyperintense cysts. Additional findings as described below: T12 -- L1: Retrolisthesiswith disc bulge and adjacent endplate osteophyte formation, in addition to bilateral hypertrophic facet degeneration, right greater than left. Mild-moderate narrowing of the spinal canal. Vrox-aljbmeqadeuu-vndrx and mild right-sided neural foraminal stenosis. L1 -- L2: Retrolisthesis and diffuse of compression disc bulge in Name: VEENA HULL MRI OP Phys: HEAVEN. - Jhony Arellano [place] [address] [place]: 1935 Age: 85 Sex: [place] [id number] Loc: T.MRI Exam Date: 04/07/2021 Status: REG CLI PH: FAX: PAGE 1 Signed Report (CONTINUED) Patient Name: VEENA HULL Unit No: [id number] EXAMS: CPT: [id number] MRI L-SPINE W/O CONT 85524 (Continued) addition to advanced bilateral hypertrophic facet degeneration, resulting in mild narrowing ofthe spinal canal, in addition to severe right-sided [...] resulting in severe spinal canal stenosis with effacementof the CSF signal within the thecal sac [...] spondylosis in the setting of lumbar levoscoliosis andmultilevel spondylolisthesis as detailed above, without acute osseous abnormality or fracture. Severe spinal canal stenosis at L3-L4 with effacement of the CSF signal within the thecal sac at this level. Moderate- severe spinal canal stenosis at L2-L3. Varying levels of advanced neural foraminal encroachment. at 1346 Reported and signed by: Jeremy Philip MD Name: VEENA HULL MRI OP Phys: K[place]NA.[place] [address] [address] : 1935 Age: 85 Sex: [place] [address] Loc: T.MRI Exam Date: 04/07/2021 Status: REG CLI PH: FAX: PAGE 2 Signed Report (CONTINUED) Patient Name: VEENA HULL Unit No: [id number] EXAMS: CPT: [id number] MRI L-SPINE W/O CONT 77955 (Continued) CC: Yung White MD; Jhony Arellano MD Technologist: Alessio Garcia Trs Dt/Tm: 04/07/2021 (1345) by:[email or web address] Orig Print D/T: S: 04/07/2021 (1348) BATCH NO: N/A Name: VEENA HULL [place] [facility] OP Phys: KESSONYA.Patricia [place] [address] [address] : 1935 Age: 85 Sex: [place] [address] Loc: T.MRI Exam Date: 04/07/2021 Status: REG CLI PH: FAX: PAGE 3 Signed Report- MG 3D SCREENING DIG [id number] 16:54:00 [facility] : 1935 Sex: FPatient Name: VEENA HULL Unit No: [id number] EXAMS: CPT: [id number] MG 3D SCREENING DIG WC CLINICAL: Z12.31 - Screening Mammogram. Digital breast [...] calcifications, or other findings are seen in eitherbreast. There has been no significant interval change. IMPRESSION: BENIGN There is no mammographic evidence of malignancy. Routine mammographic evaluation in 1 year is recommended.(01/06/2022) A letter will be sent informing the patient of the results of this examination and the appropriate information has been entered into a reminder system with a targeted due date for the next mammogram. [facility] specialized breast radiologists follow the [employer] Guidelines of annual screening mammography after age 40. This exam was interpreted at the [facility]. Daija Hapr M.D. aa/penrad:01/06/2021 16:54:02 Letter: Normal BI-RADS Category 2: Benign at 1654 Reported and signed by: Daija Harp MD CC: Yung White MD Technologist: [facility] Dt/Tm: 01/06/2021 (1654) by:MILLER Orig Print D/T: S: 01/23/2021 (0703) BATCH NO: N/A Name: VEENA HULL [facility] Phys: Ynug Lindsey MD : 1935 Age: 85 Sex: F Edie Mejia Loc: T.PINEDO Exam Date: 01/05/2021 Status: PRE REF PH: FAX: PAGE 1 Signed Report- XR CHEST 2 [id number] 16:12:00 [facility] : 1935 Sex: FPatient Name: VEENA HULL Unit No: [id number] EXAMS: CPT: [id number] XR CHEST 2 V 95660 EXAM: SINGLE VIEW OF THE CHEST HISTORY: 85-year-old female with chest pain. COMPARISON: Chest x-ray 12/21/2020 at 1343 hours. FINDINGS: Lines/tubes: None. Lungs/Pleura: A linear retrocardiac opacity is present. Pulmonary vasculature appears within normal limits. No pleural effusion or pneumothorax. Heart/mediastinum: Cardiomediastinal silhouette is within normal limits. Bones/soft tissues: Within normallimits. IMPRESSION: Linear retrocardiac opacity, likely reflecting atelectasis. at 1612 Reported and signed by: YUMI WOOD DO CC: Addie Lopez MD; Marguerite Ho MD; Yung White MD Technologist: ANITA Thompson Time: DAP (Gy m2): Air Kerma (mGy): Trscr Dt/Tm: 12/21/2020 (1612) by:[email or web address] Orig Print D/T: S: 12/21/2020 (1615) BATCH NO: N/A Name: VEENA HULL [facility] [place] Phys: MD Marguerite Cobian [address] [facility] : 1935 Age: 85 Sex: F [place] Loc: TRanjitERS Exam Date: 12/21/2020 Status: REG ER PH: FAX: PAGE 1 Signed ReportB-TYPE NATRIURETIC [id number] 15:21:00 Test Item Value Reference Range Interpretation Comments B-TYPE NATRIURETIC PEPTIDE (test 45 pg/mL 5-100 N code = BNP) BASIC METABOLIC [id number] 15:01:00 Test Item Value Reference Range Interpretation [...] mg/dL 8.6-10.3 N = CA) TROPONIN I [id number] 14:55:00 Test Item Value Reference Range Interpretation [...] if similar methodology is used. CBC W/AUTO [id number] 14:50:00 Test Item Value Reference Range Interpretation [...] K/mm3 0.0-0.1 N - XR CHEST 1 [id number] 14:28:00 [facility] : 1935 Sex: FPatient Name: VEENA HULL Unit No: [id number] EXAMS: CPT: [id number] XR CHEST 1 V 02054 EXAM: SINGLE VIEW OF THE CHEST HISTORY: [...] Ho MD; Yung White MD Technologist: Selma Thompson Time: DAP (Gy m2): Air Kerma (mGy): Trscr Dt/Tm: 12/21/2020 (1428) by:[email or web address] Orig Print D/T: S: 12/21/2020 (9218) BATCH NO: N/A Name: VEENA HULL [facility] [place] Phys: MD Marguerite Cobian [address] [facility] : 1935 Age: 85 Sex: F [place] Loc: T.ERS Exam Date: 12/21/2020 Status: REG ER PH: FAX: PAGE 1 Signed Report- CT L-SPINE W/O [id number] 16:55:00 [facility] : 1935 Sex: FPatient Name: VEENA HULL Unit No: [id number] EXAMS: CPT: [id number] CT L-SPINE W/O CONTRAST [address] CT SCAN OF THE LUMBAR SPINE WITHOUT CONTRAST: COMPARISON: None available CLINICAL HISTORY: RIGHT HIP PAIN RADIATING DOWN THE LEG. Contrast: IV- None. Oral-None. DLP: 811 mGy/cm. FINDINGS: Extensive multilevel disc space narrowing, osteophytosis and hypertrophic facet changes seen. Levocurvature of the lumbar spine noted. Grade 1 anterolisthesis of L4 on L5. Mild retrolisthesis of T12 on L1. No acute fracture is seen. No bony destructive lesions seen. IMPRESSION: Multilevel degenerative change. Levocurvature of the lumbar spine. Grade 1 anterolisthesis of L4 on L5. Mild retrolisthesis of T12 on L1. If patient has persistent unexplained symptomatology, MRI may be helpful for further evaluation. COMMENT: CT radiation dose optimization is achieved for this examination by one or more of the following dose reduction techniques- automated exposure control, adjustment of the mA and/or KV according to patient size, and/or utilization of iterative reconstruction technique. at 1655 Reported and signed by: Bhanu Gutierrez MD CC: Yung White MDTechnologist: Cheri Alcantar CTDI: 28.97 DLP: 811.12 [facility] Dt/Tm: 08/10/2020 (1654) by:Fam [facility] D/T: S: 08/10/2020 (1657) BATCH NO: N/A Name: VEENA HULL [facility] [place] Phys: Yung Maya MD [address] [facility] : 1935 Age: 85 Sex: F [place] Loc: T.CTS Exam Date: 08/10/2020 Status: REG CLI PH: FAX: PAGE 1 Signed Report- CT PELVIS W/O [id number] 15:56:00 [facility] : 1935 Sex: FPatient Name: VEENA HULL Unit No: [id number] EXAMS: CPT: [id number] CT PELVIS W/O CONTRAST 70923 EXAM: CT scan of the bony pelvis without contrast COMPARISON: None available CLINICAL HISTORY: RIGHT HIP PAIN RADIATING DOWN THE LEG. Contrast: IV-None. Oral-None. DLP: 1151 mGy/cm. FINDINGS: Noacute fracture or dislocation seen. Mild degenerative changes are seen involving the right and lefthips. No significant hip joint effusion seen. Incompletely distended bladder is unremarkable. No significant free fluid seen in the pelvis. IMPRESSION: Degenerative changes are seen involving the hips.COMMENT: CT radiation dose optimization is achieved for this examination by one or more of the following dose reduction techniques-automated exposure control, adjustment of the mA and/or KV according to patient size, and/or utilization of iterative reconstruction technique. at 1556 Reported and signed by: Bhanu Gutierrez MD CC: Yung White MD Techn ologist: Cheri Alcantar CTDI: 21.67 DLP: 751.41 [facility] Dt/Tm: 08/10/2020 (1556) by:Fam Orig PrintD/T: S: 08/10/2020 (1600) BATCH NO: N/A Name: [facility]EE[facility] HULL [facility] [place] Phys: Yung Lindsey MD [address] [facility] : 1935 Age: 85 Sex: F Tal Mejia Loc:T.CTS Exam Date: 08/10/2020 Status: REG CLI PH: FAX: PAGE 1 Signed Report- XR SWLW FUNC W/C [id number] 13:48:00Patient Name: VEENA HULL Unit No: [id number] EXAMS: CPT: [id number] XR SWLW FUNC W/C V 63222 MODIFIED BARIUM SWALLOW CLINICAL HISTORY: ASPIRATION SEEN ON BARIUM SWALLOW, OCCASIONAL COUGH WHEN. DLP: 1.8 mGy CAK. FINDINGS: Modified barium swallow was performed in conjunction with speech pathology. No laryngeal penetration or aspiration was demonstrated during the exam. at 1348 Reported and signed by: Bhanu Gutierrez MD CC: Isai chin Technologist: Parminder Alejo Fluoro Time: 60 DAP (Gy m2): Air Kerma (mGy): 1.816Trscr Dt/Tm: 12/22/2019 (1348) by:Fam Orig Print D/T: S: 12/22/2019 (6356) BATCH NO: N/A Name: VEENA HULL [facility] [place] Phys: Isai Hyman [address] [facility] : 1935 Age: 84 Sex: F Tal Mejia Loc: T.RAD Exam Date: 12/22/2019 Status: REG CLI PH: FAX: PAGE 1 Signed ReportNovel Coronavirus 2019 [id number] 09:13:00 Test Item Value Reference Range Interpretation Comments Novel Coronavirus Not Detected Not Detected Testing wa s performed 2019 Inhouse (test using the Aptima code = COVNONPUI) SARS-CoV-2 assay.This nucleic acid amplification t est was developed and itsperformance characteristics determined by [facility]. Nucleic acid amplification t ests include PCRand TMA. This test has not be en FDA cleared or appr alfonso.This test has been a uthorized by FDA under an Emergency UseAuthorizatio n (EUA). This test is on ly authorized he duration of racheal e the declaration carline t circumstancesex ist justifying the authorization o f the emergency use o fin vitro diagnostic test s for detection of SA RS-CoV-2 virusand/or nish gnosis of COVID-19 infect ion under jzzlixc319(b)(1 ) of the Act, 21 U.S.C. 360bbb-3(b) [...] resul t in this assay.Performed At: [facility] [address] [id number] jose Naqvi MD Ph:[phone] URINALYSIS [id number] 13:23:00 Test Item Value Reference Range Interpretation [...] = BACU) NEGATIVE /HPF NEGATIVE LACTIC ACID [id number] 13:13:00 Test Item Value Reference Range Interpretation Comments LACTIC ACID POC (test code = 0.78 mmol/L 0.36-1.25 N LACTP) URINALYSIS [id number] 12:56:00 Test Item Value Reference Range Interpretation [...] DIPSTICK (test code = * 8.0 4.5-8.5 ARELTTE) UA PROTEIN DIPSTICK (test code NEGATIVE NEGATIVE [...] code = BACU) /HPF NEGATIVE LIVER FUNCTION [id number] 12:04:00 Test Item Value Reference Range Interpretation Comments TOTAL PROTEIN (test 7.5 g/dL 6.0-8.3 N code = PROT) ALBUMIN (test code = 4.6 g/dL 3.2-5.5 N ALB) BILIRUBIN TOTAL 0.6 mg/dL 0.2-1.0 N U-qzaikk-z-b enzoquinone (test code = BILT) imine (NA [...] UNITS/L 34-104 N (test code = ALKP) [id number] 12:04:00 Test Item Value Reference Range Interpretation Comments LIPASE (test code = LIP) 61 UNITS/L 22-151 N PROTHROMBIN [id number] 11:35:00 Test Item Value Reference Range Interpretation [...] from: Tissue he art valves 2.0 - 3 .0 Acute myocardia l infarction (to present systemic emboli sm)* 2.0 - 3.0 Valvu lar heart disease 2 .0 - 3.0 Atrial fibrillation 2. 0 - 3.03. Mechanica l prosthetic valv es (high risk) 2.5 - 3.5 * If oral anticoagulant t herapy is elected to preventrecurren t myocardial infa rction, an INR of 2.5-3 .5 isrecommended, consistent with Food and Drug Administrationr ecommen dations. CBC W/AUTO [id number] 11:34:00 Test Item Value Reference Range Interpretation [...] BA#) 0.04 K/mm3 0.0-0.1 N TROPONIN I [id number] 11:28:00 Test Item Value Reference Range Interpretation [...] methodology is used. - XR CHEST 1 [id number] 11:23:00Patient Name: VEENA HULL Unit No: [id number] EXAMS: CPT: [id number] XR CHEST 1 V [id number] Comparison study: 03/07/2016 History: CODE SEPSIS CHEST 1 VIEW FINDINGS: The lungs are clear. The heart size is magnified by the AP technique. The pulmonary vasculature is within normal limits. No pneumothorax or pleural effusion is present. Thoracic scoliosis is present. IMPRESSION: 1. No acute abnormality is identified. at 1123 Reported and signed by: Brad Marshall MD CC: Joo Latham DO; Yung White MD Technologist: Michael Sweeney Fluoro Time: DAP (Gy m2): Air Kerma (mGy): Trscr Dt/Tm: 03/06/2019 (1123) by:[email or web address] Print D/T: S: 03/06/2019 (1126) BATCH NO: N/A Name: VEENA HULL [facility] [place] Phys: Joo Cadet DO [address] [facility] : 1935 Age: 83 Sex: F [place] [id number] Loc: T.ERS Exam Date: 03/06/2019 Status: REG ER PH: FAX: PAGE 1 Signed ReportLACTIC ACID [id number] 11:21:00 Test Item Value Reference Range Interpretation Comments LACTIC ACID POC (test code = 2.28 mmol/L 0.36-1.25 H LACTP) BNP [id number] 11:15:00 Test Item Value Reference Range Interpretation Comments BNP RAPID (test code = BNPRAP) 71 pg/mL 0.0-100.0 N CHEMISTRY 8 [id number] 11:09:00 Test Item Value Reference Range Interpretation [...] 32-75 L code = GFRP) CHEMISTRY 8 [id number] 11:09:00 Test Item Value Reference Range Interpretation [...] 31 32-75 L (test code = GFRP) CHEM [id number] 17:09:00 Test Item Value Reference Range Interpretation Comments POC Creatinine (test code = POC 1.1 0.5-1.4 Creatinine) [facility]CHE[facility] [id number] 17:09:00 Test Item Value Reference Range Interpretation Comments eGFR (test code = eGFR) 46 [facility] DallasFaluiroTTWNDMHOUS6760-55-69 08:42:00 Test Item Value Reference Range Interpretation Comments Platelet (test code = Platelet) 217 133-450 [facility] DallasSeqxnnjFVJNVFOOBA1824-59-96 08:42:00 Test Item Value Reference Range Interpretation Comments RDW (test code = RDW) 11.7 11.5-14.5 [facility] HospitalDjmsxnwNWEVZOZISF7994-94-32 08:42:00 Test Item Value Reference Range Interpretation Comments MPV (test code = MPV) 8.8 7.4-10.4 [facility] HospitalYzvcplxKSCWPPRXBN7867-23-70 08:42:00 Test Item Value Reference Range Interpretation Comments MCV (test code = MCV) 98.0 80.0-98.0 [facility] HospitalVflkcceBXVZQLZGMP2760-40-80 08:42:00 Test Item Value Reference Range Interpretation Comments Hct (test code = Hct) 34.3 36.0-48.0 [facility] HospitalLdbumzwZYOUSAMPTH2930-60-53 08:42:00 Test Item Value Reference Range Interpretation Comments MCHC (test code = MCHC) 33.7 32.0-36.0 [facility] HospitalKvuvtanQPWZMDNGJW5500-08-31 08:42:00 Test Item Value Reference Range Interpretation Comments MCH (test code = MCH) 33.1 pg 27.0-31.0 [facility] HospitalDgtaxavQVYHKHTZXI9087-41-72 08:42:00 Test Item Value Reference Range Interpretation Comments Hgb (test code = Hgb) 11.6 12.0-16.0 [facility] HospitalTnxnbstNLSUJKZJMH1248-88-00 08:42:00 Test Item Value Reference Range Interpretation Comments WBC (test code = WBC) 12.6 3.7-10.4 [facility] HospitalMagvzjoLUZUQTCAMC6819-67-09 08:42:00 Test Item Value Reference Range Interpretation Comments RBC (test code = RBC) 3.50 4.20-5.40 [facility] HospitalEecieppORGOTPIWOZ4876-38-62 08:42:00 Test Item Value Reference Range Interpretation Comments Basophils (test code = 0.2 See_Comment [Aut omated message] The Basophils) system which ge nerated this result tra nsmitted reference range : <=1.0. The reference r himanshu was not used to int erpret this result as normal/abnormal . [facility] HospitalGfkuuyeTQTGMMHDQW9023-83-78 08:42:00 Test Item Value Reference Range Interpretation Comments Monocytes # (test code 0.8 See_Comment [Aut omated message] The = Monocytes #) system which generated this result tra nsmitted reference range : <=0.8. The reference r himanshu was not used to int erpret this result as normal/abnormal . [facility] HospitalNbtcohvIDPZTGCIBU3130-40-95 08:42:00 Test Item Value Reference Range Interpretation Comments Neutrophils # (test code = Neutrophils 10.9 1.5-8.1 #) [facility] HospitalGnqoclaLZNPYJTZKR3270-35-14 08:42:00 Test Item Value Reference Range Interpretation Comments Lymphocytes # (test code = Lymphocytes 0.9 1.0-5.5 #) [facility] HospitalObytpxbBWHJNLFMME1634-49-05 08:42:00 Test Item Value Reference Range Interpretation Comments Monocytes (test code = Monocytes) 6.4 2.0-12.0 [facility] HospitalFmwwfpaIBGKKOEZKX8841-38-55 08:42:00 Test Item Value Reference Range Interpretation Comments Segs (test code = Segs) 86.5 45.0-75.0 [facility] HospitalQfmmyxjUDANOJMLLI0206-58-75 08:42:00 Test Item Value Reference Range Interpretation Comments Lymphocytes (test code = Lymphocytes) 6.9 20.0-40.0 [facility]RafvissIJQSQUWQVHLX9101-24-23 15:08:00 Test Item Value Reference Range Interpretation Comments AGAP (test code = AGAP) 12.2 10.0-20.0 [facility] HospitalRywheuqAMTWRXCAJATZ9581-58-98 15:08:00 Test Item Value Reference Range Interpretation Comments B/C Ratio (test code = B/C Ratio) 28 1 6-25 [facility] HospitalDnytouaHSGYSJZZNLFR7139-62-96 15:08:00 Test Item Value Reference Range Interpretation Comments Globulin (test code = Globulin) 3.1 2.7-4.2 [facility] HospitalIbyoukfUOJWNNZQTZDQ4015-52-98 15:08:00 Test Item Value Reference Range Interpretation Comments A/G Ratio (test code = A/G Ratio) 1.4 1 0.7-1.6 [facility] HospitalGtclijwXVNJNOJZBPMH0031-16-76 15:08:00 Test Item Value Reference Range Interpretation Comments eGFR (test code = eGFR) 40 [facility] HospitalWroxcikOXVEUNPCRTUP3311-39-32 15:08:00 Test Item Value Reference Range Interpretation Comments AST (test code = AST) 21 See_Comment [Auto mated message] The system which ge nerated this result transmit luana reference range : <=37. The reference range was not used to interpr et this result as angela l/abnormal. [facility] HospitalYmxixlhTLHPCINHWMLZ9150-12-01 15:08:00 Test Item Value Reference Range Interpretation Comments Alk Phos (test code = Alk Phos) 62 39-136 [facility] HospitalJvvxqifUZQTSQDAWQGL2416-93-23 15:08:00 Test Item Value Reference Range Interpretation Comments Bili Total (test code = Bili Total) 0.5 0.2-1.3 [facility] HospitalGthgvexUMJFJUDLNKLE1622-47-98 15:08:00 Test Item Value Reference Range Interpretation Comments Total Protein (test code = Total 7.4 6.4-8.4 Protein) [facility] HospitalBarbpkgEQYXYRCUYLAV6879-55-42 15:08:00 Test Item Value Reference Range Interpretation Comments Albumin Lvl (test code = Albumin Lvl) 4.3 3.5-5.0 [facility] HospitalHdqjwwrAQPLFPEUBAWI1056-53-72 15:08:00 Test Item Value Reference Range Interpretation Comments Calcium Lvl (test code = Calcium Lvl) 10.2 8.5-10.5 [facility] HospitalIimreypZVFHJHRMYNBB8198-16-95 15:08:00 Test Item Value Reference Range Interpretation Comments Chloride Lvl (test code = Chloride Lvl) 101 95-109 [facility] HospitalSexatbgHQCPXYBELTLT4012-99-70 15:08:00 Test Item Value Reference Range Interpretation Comments CO2 (test code = CO2) 31 24-32 [facility] HospitalZbxjxoxCQQFFWXKORHI9788-74-49 15:08:00 Test Item Value Reference Range Interpretation Comments Sodium Lvl (test code = Sodium Lvl) 140 135-145 [facility] HospitalLfjdohuRDUYNGZGQLHX4093-80-52 15:08:00 Test Item Value Reference Range Interpretation Comments Potassium Lvl (test code = Potassium 4.2 3.5-5.1 Lvl) [facility] HospitalYrgmksnNHUBQUUYPKUX1211-84-98 15:08:00 Test Item Value Reference Range Interpretation Comments ALT (test code = ALT) 22 See_Comment [Auto mated message] The system which ge nerated this result transmit luana reference range : <=65. The reference range was not used to interpr et this result as angela l/abnormal. [facility] HospitalDvgxrkjYZPSVFOUWGSM2335-43-75 15:08:00 Test Item Value Reference Range Interpretation Comments BUN (test code = BUN) 34 7-22 [facility] HospitalZmyfggsKVUOTAQIPFPR9216-41-52 15:08:00 Test Item Value Reference Range Interpretation Comments Glucose Lvl (test code = Glucose Lvl) 90 70-99 [facility]YkysnsyZZKFAWLGHDQV9362-26-51 15:08:00 Test Item Value Reference Range Interpretation Comments Creatinine Lvl (test code = Creatinine 1.23 0.50-1.40 Lvl) [facility]un[facility]HUZZXVLRQI1757-34-46 15:08:00 Test Item Value Reference Range Interpretation Comments INR (test code = INR) 0.93 1 0.85-1.17 [facility] HospitalFdvtjrzKBODOWRXMX2743-86-84 15:08:00 Test Item Value Reference Range Interpretation Comments PT (test code = PT) 12.5 s 12.0-14.7 [facility] HospitalKulmhzxKIFMJZKPWJ6163-31-19 15:08:00 Test Item Value Reference Range Interpretation Comments PTT (test code = PTT) 29.5 s 22.9-35.8 [facility] HospitalFycatomYNSYXGPWDU0432-15-56 15:08:00 Test Item Value Reference Range Interpretation Comments WBC (test code = WBC) 7.4 3.7-10.4 [facility] HospitalWtepogzJFUQFEWYHY2376-59-67 15:08:00 Test Item Value Reference Range Interpretation Comments RBC (test code = RBC) 4.30 4.20-5.40 [facility] HospitalYrrosrbNDVMIRWOBF7562-56-06 15:08:00 Test Item Value Reference Range Interpretation Comments Hct (test code = Hct) 42.8 36.0-48.0 [facility] HospitalFxrfnqtVFIAEDBLGF9198-11-90 15:08:00 Test Item Value Reference Range Interpretation Comments Hgb (test code = Hgb) 14.3 12.0-16.0 [facility] HospitalWqwkbaoEMPIGLIYTO1208-63-73 15:08:00 Test Item Value Reference Range Interpretation Comments MCV (test code = MCV) 99.4 80.0-98.0 [facility] HospitalGphbnetQMKMSEXTIN9941-77-09 15:08:00 Test Item Value Reference Range Interpretation Comments MCHC (test code = MCHC) 33.5 32.0-36.0 [facility] HospitalOdqzpvkIOMKHTYJJL2441-99-97 15:08:00 Test Item Value Reference Range Interpretation Comments MCH (test code = MCH) 33.3 pg 27.0-31.0 [facility] HospitalNrydwfnGRZNWQMAHK5562-36-32 15:08:00 Test Item Value Reference Range Interpretation Comments Platelet (test code = Platelet) 261 133-450 [facility] HospitalHvyrlzlCBOARDLRZE3265-08-89 15:08:00 Test Item Value Reference Range Interpretation Comments MPV (test code = MPV) 8.9 7.4-10.4 [facility] HospitalWajkscwMCAHQOQIYI6678-51-49 15:08:00 Test Item Value Reference Range Interpretation Comments RDW (test code = RDW) 12.3 11.5-14.5 [facility] HospitalPiqbkanDYMTZMYSYL7238-48-36 15:08:00 Test Item Value Reference Range Interpretation Comments Lymphocytes (test code = Lymphocytes) 22.8 20.0-40.0 [facility] HospitalLohobdhCFOVYIPSLA9023-78-67 15:08:00 Test Item Value Reference Range Interpretation Comments Monocytes (test code = Monocytes) 9.1 2.0-12.0 [facility] HospitalJwsevvrOJIVBOFGNM3375-30-48 15:08:00 Test Item Value Reference Range Interpretation Comments Eosinophils (test code = 0.9 See_Comment [A utomated message] The Eosinophils) system which ge nerated this result tra nsmitted reference range : <=4.0. The reference r himanshu was not used to int erpret this result as normal/abnormal . [facility] HospitalMmbdddmMHLUKNGGXU2731-99-11 15:08:00 Test Item Value Reference Range Interpretation Comments Segs (test code = Segs) 66.5 45.0-75.0 [facility] HospitalClapjxuMBHHDJOOCH5191-51-36 15:08:00 Test Item Value Reference Range Interpretation Comments Neutrophils # (test code = Neutrophils 4.9 1.5-8.1 #) [facility] HospitalOzleyuwDXJFQOXZQE5309-08-59 15:08:00 Test Item Value Reference Range Interpretation Comments Basophils (test code = 0.7 See_Comment [Aut omated message] The Basophils) system which ge nerated this result tra nsmitted reference range : <=1.0. The reference r himanshu was not used to int erpret this result as normal/abnormal . [facility] HospitalWnpsupfYNEVNSKTVE3475-47-35 15:08:00 Test Item Value Reference Range Interpretation Comments Monocytes # (test code 0.7 See_Comment [Aut omated message] The = Monocytes #) system which generated this result tra nsmitted reference range : <=0.8. The reference r himanshu was not used to int erpret this result as normal/abnormal . [facility] HospitalTmbpfoeAFVEBLMCQH6222-61-75 15:08:00 Test Item Value Reference Range Interpretation Comments Lymphocytes # (test code = Lymphocytes 1.7 1.0-5.5 #) [facility] HospitalFchvluwINKEADXAMA3896-36-29 15:08:00 Test Item Value Reference Range Interpretation Comments Eosinophils # (test code 0.1 See_Comment [A utomated message] The = Eosinophils #) system whic h generated this result tra nsmitted reference range : <=0.5. The reference r himanshu was not used to int erpret this result as normal/abnormal . [facility] HospitalAvxhgwfHKGQQKBAGQ0926-45-73 15:08:00 Test Item Value Reference Range Interpretation Comments Basophils # (test code 0.1 See_Comment [Aut omated message] The = Basophils #) system which generated this result tra nsmitted reference range : <=0.2. The reference r himanshu was not used to int erpret this result as normal/abnormal . [facility] AND [id number] 15:08:00 Test Item Value Reference Range Interpretation Comments UA Urobilinogen (test code = UA <=1.0 mg/dL 0.1-1.0 Urobilinogen) [facility] AND [id number] 15:08:00 Test Item Value Reference Range Interpretation Comments UA Leuk Est (test Negative (12/06/17 10:08 code = UA Leuk Est) AM) [facility] AND [id number] 15:08:00 Test Item Value Reference Range Interpretation Comments UA Sq Epi (test code = UA Sq Occasional /LPF Epi) [facility] AND [id number] 15:08:00 Test Item Value Reference Range Interpretation Comments UA Hyal Cast (test 23 See_Comment [Automat ed message] The code = UA Hyal Cast) system which generated this result transmit luana reference range : <=2. The reference range was not used to interpr et this result as angela l/abnormal. [facility] AND [id number] 15:08:00 Test Item Value Reference Range Interpretation Comments UA RBC (test code = 3 See_Comment [Automa luana message] The UA RBC) system which ge nerated this result transmit luana reference range : <=2. The reference range was not used to interpr et this result as angela l/abnormal. [facility] AND [id number] 15:08:00 Test Item Value Reference Range Interpretation Comments UA WBC (test code = no gt See_Comment [Automa luana message] The UA WBC) system which ge nerated this result transmit luana reference range : <=5. The reference range was not used to interpr et this result as angela l/abnormal. [facility] AND [id number] 15:08:00 Test Item Value Reference Range Interpretation Comments UA Ketones (test code = UA Negative mg/dL Ketones) [facility] AND [id number] 15:08:00 Test Item Value Reference Range Interpretation Comments UA Bili (test code = Negative *NA*(12/06/17 UA Bili) 10:08 AM) [facility] AND [id number] 15:08:00 Test Item Value Reference Range Interpretation Comments UA Mucus (test code = UA Mucus) Few /LPF [facility] AND [id number] 15:08:00 Test Item Value Reference Range Interpretation Comments UA Blood (test code = Negative (12/06/17 10:08 UA Blood) AM) [facility] AND [id number] 15:08:00 Test Item Value Reference Range Interpretation Comments UA Nitrite (test code Negative (12/06/17 10:08 = UA Nitrite) AM) [facility] AND [id number] 15:08:00 Test Item Value Reference Range Interpretation Comments UA Glucose (test code = UA Negative mg/dL Glucose) [facility] AND [id number] 15:08:00 Test Item Value Reference Range Interpretation Comments UA Color (test code = Yellow *NA*(12/06/17 UA Color) 10:08 AM) [facility] AND [id number] 15:08:00 Test Item Value Reference Range Interpretation Comments UA Protein (test code = UA Negative mg/dL Protein) [facility] AND [id number] 15:08:00 Test Item Value Reference Range Interpretation Comments UA pH (test code = UA pH) 6.0 1 5.0-8.0 [facility] AND [id number] 15:08:00 Test Item Value Reference Range Interpretation Comments UA Spec Grav (test code = UA Spec 1.015 1 Grav) [facility] AND [id number] 15:08:00 Test Item Value Reference Range Interpretation Comments UA Turbidity (test code = Clear (12/06/17 10:08 UA Turbidity) AM) [facility] HospitalGbbaadmEYEYNHCVTG3048-90-92 12:32:00 Test Item Value Reference Range Interpretation Comments Hgb (test code = Hgb) 10.1 12.0-16.0 [facility] HospitalYglvhkpJQFHUXLMGN2236-34-91 12:32:00 Test Item Value Reference Range Interpretation Comments Platelet (test code = Platelet) 140 133-450 [facility] HospitalVydxyscBZGTKNYKSP4570-35-61 12:32:00 Test Item Value Reference Range Interpretation Comments MCH (test code = MCH) 32.1 pg 27.0-31.0 [facility] HospitalOezfrkhOYIUZBUKRS5214-64-14 12:32:00 Test Item Value Reference Range Interpretation Comments MCHC (test code = MCHC) 33.7 32.0-36.0 [facility] HospitalIxzfsvoKGDVOKRGPC1840-29-31 12:32:00 Test Item Value Reference Range Interpretation Comments MPV (test code = MPV) 9.2 7.4-10.4 [facility] HospitalRhlxbohYKNNOTQXIS6256-40-94 12:32:00 Test Item Value Reference Range Interpretation Comments RDW (test code = RDW) 12.3 11.5-14.5 [facility] HospitalOcmzjygGZZMTXIUZC6223-37-78 12:32:00 Test Item Value Reference Range Interpretation Comments MCV (test code = MCV) 95.3 80.0-98.0 [facility] HospitalIftinnkUBFIMUBULY4847-05-78 12:32:00 Test Item Value Reference Range Interpretation Comments Hct (test code = Hct) 30.2 36.0-48.0 [facility] HospitalPqjocmxVCYZHJKJOO5516-82-07 12:32:00 Test Item Value Reference Range Interpretation Comments RBC (test code = RBC) 3.16 4.20-5.40 [facility] HospitalYkmayycXZSNBDHOMJ7200-78-95 12:32:00 Test Item Value Reference Range Interpretation Comments WBC (test code = WBC) 8.5 3.7-10.4 [facility] HospitalOqqbjiiMEAZHLTRQK3087-63-52 12:32:00 Test Item Value Reference Range Interpretation Comments Lymphocytes # (test code = Lymphocytes 1.3 1.0-5.5 #) [facility] HospitalBfbkhseCHIGJAGXTL3340-53-64 12:32:00 Test Item Value Reference Range Interpretation Comments Monocytes # (test code 0.7 See_Comment [Aut omated message] The = Monocytes #) system which generated this result tra nsmitted reference range : <=0.8. The reference r himanshu was not used to int erpret this result as normal/abnormal . [facility] HospitalQgryoyzDXUEUIOHPH4110-14-90 12:32:00 Test Item Value Reference Range Interpretation Comments Monocytes (test code = Monocytes) 8.2 2.0-12.0 [facility] HospitalOamelqzWZBBCXGYEY0167-25-74 12:32:00 Test Item Value Reference Range Interpretation Comments Eosinophils # (test code 0.2 See_Comment [A utomated message] The = Eosinophils #) system whic h generated this result tra nsmitted reference range : <=0.5. The reference r himanshu was not used to int erpret this result as normal/abnormal . [facility] HospitalVhpxslqWBIEHQLNIL5794-90-12 12:32:00 Test Item Value Reference Range Interpretation Comments Basophils # (test code 0.1 See_Comment [Aut omated message] The = Basophils #) system which generated this result tra nsmitted reference range : <=0.2. The reference r himanshu was not used to int erpret this result as normal/abnormal . [facility] HospitalQzxgnnyRKURCQGJVF6241-31-51 12:32:00 Test Item Value Reference Range Interpretation Comments Segs-Bands # (test code = Segs-Bands #) 6.2 1.5-8.1 [facility] HospitalWrkfvdyUCJSLPNLGR7783-98-95 12:32:00 Test Item Value Reference Range Interpretation Comments Basophils (test code = 0.9 See_Comment [Aut omated message] The Basophils) system which ge nerated this result tra nsmitted reference range : <=1.0. The reference r himanshu was not used to int erpret this result as normal/abnormal . [facility] HospitalZcevislNXWEFMGDFV9151-10-48 12:32:00 Test Item Value Reference Range Interpretation Comments Lymphocytes (test code = Lymphocytes) 15.4 20.0-40.0 [facility] HospitalKpyrolrUDJDHTITHS8254-51-84 12:32:00 Test Item Value Reference Range Interpretation Comments Eosinophils (test code = 2.7 See_Comment [A utomated message] The Eosinophils) system which ge nerated this result tra nsmitted reference range : <=4.0. The reference r himanshu was not used to int erpret this result as normal/abnormal . [facility] HospitalLalylzdWNVQBLUXFS3664-17-89 12:32:00 Test Item Value Reference Range Interpretation Comments Segs (test code = Segs) 72.8 45.0-75.0 [facility] HospitalUerjabnGEMWVQFLCW5442-45-36 08:52:00 Test Item Value Reference Range Interpretation Comments Monocytes # (test code 0.8 See_Comment [Aut omated message] The = Monocytes #) system which generated this result tra nsmitted reference range : <=0.8. The reference r himanshu was not used to int erpret this result as normal/abnormal . [facility] HospitalSbilqmjKNJWLUKRMC0263-66-77 08:52:00 Test Item Value Reference Range Interpretation Comments Lymphocytes # (test code = Lymphocytes 1.3 1.0-5.5 #) [facility] HospitalNfmregaCIEFAFRDGT2953-63-33 08:52:00 Test Item Value Reference Range Interpretation Comments Lymphocytes (test code = Lymphocytes) 10.9 20.0-40.0 [facility] HospitalPevzaorCDLLPNBPIU8553-52-46 08:52:00 Test Item Value Reference Range Interpretation Comments Monocytes (test code = Monocytes) 7.0 2.0-12.0 [facility] HospitalNlgelfmISCIBVGPJU8347-02-61 08:52:00 Test Item Value Reference Range Interpretation Comments Segs (test code = Segs) 81.7 45.0-75.0 [facility] HospitalUoknnuiZXFOHPDKWR0955-85-71 08:52:00 Test Item Value Reference Range Interpretation Comments Basophils (test code = 0.4 See_Comment [Aut omated message] The Basophils) system which ge nerated this result tra nsmitted reference range : <=1.0. The reference r himanshu was not used to int erpret this result as normal/abnormal . [facility] HospitalXxtyugiOEQAQBMAYB7167-70-88 08:52:00 Test Item Value Reference Range Interpretation Comments Segs-Bands # (test code = Segs-Bands #) 9.4 1.5-8.1 [facility] HospitalDkmnxcoEXSRFIRKOF9964-35-86 08:52:00 Test Item Value Reference Range Interpretation Comments Platelet (test code = Platelet) 177 133-450 [facility] HospitalMlcfuibOCTIMSIDFJ0592-53-73 08:52:00 Test Item Value Reference Range Interpretation Comments MPV (test code = MPV) 9.2 7.4-10.4 [facility] HospitalHstdwuaXDYQAUOKVF6632-51-63 08:52:00 Test Item Value Reference Range Interpretation Comments RDW (test code = RDW) 12.1 11.5-14.5 [facility] HospitalQawyxxxLZDMMGFWVR9657-68-52 08:52:00 Test Item Value Reference Range Interpretation Comments MCHC (test code = MCHC) 32.9 32.0-36.0 [facility] HospitalZnhfsuaYUMEHEFXBG2931-53-23 08:52:00 Test Item Value Reference Range Interpretation Comments Hgb (test code = Hgb) 11.0 12.0-16.0 [facility] HospitalTzhjhzlWQHOYPOVTD7842-90-91 08:52:00 Test Item Value Reference Range Interpretation Comments RBC (test code = RBC) 3.44 4.20-5.40 [id number] 08:52:00 Test Item Value Reference Range Interpretation Comments WBC (test code = WBC) 11.5 3.7-10.4 [facility] HospitalGqavoedJIZIALXGGR8347-81-40 08:52:00 Test Item Value Reference Range Interpretation Comments MCV (test code = MCV) 96.9 80.0-98.0 [facility] HospitalQlaefirWGNRBNXMQE8683-81-25 08:52:00 Test Item Value Reference Range Interpretation Comments MCH (test code = MCH) 31.9 pg 27.0-31.0 [facility] HospitalKlkehcoHGWADLIQLV7186-13-07 08:52:00 Test Item Value Reference Range Interpretation Comments Hct (test code = Hct) 33.3 36.0-48.[address] [facility]2016-06-30 14:40:00 Test Item Value Reference Range Interpretation Comments A/G Ratio (test code = A/G Ratio) 1.2 0.7-1.[address] [facility]2016-06-30 14:40:00 Test Item Value Reference Range Interpretation Comments AGAP (test code = AGAP) 8.8 10.0-20.[address] [facility]2016-06-30 14:40:00 Test Item Value Reference Range Interpretation Comments B/C Ratio (test code = B/C Ratio) 25 6-[address] [facility]2016-06-30 14:40:00 Test Item Value Reference Range Interpretation Comments Globulin (test code = Globulin) 3.2 2.0-4.[address] [facility]2016-06-30 14:40:00 Test Item Value Reference Range Interpretation Comments eGFR (test code = eGFR) [address] [facility]2016-06-30 14:40:00 Test Item Value Reference Range Interpretation Comments AST (test code = AST) 17 See_Comment [Auto mated message] The system which ge nerated this result transmit luana reference range : <=37. The reference range was not used to interpr et this result as angela l/abnormal. [facility]2016-06-30 14:40:00 Test Item Value Reference Range Interpretation Comments Alk Phos (test code = Alk Phos) 58 39-136 [place] [id number] 14:40:00 Test Item Value Reference Range Interpretation Comments Bili Total (test code = Bili Total) 0.5 0.2-1.[address] [facility]2016-06-30 14:40:00 Test Item Value Reference Range Interpretation Comments Creatinine Lvl (test code = Creatinine 0.84 0.50-1.40 Lvl) [facility]2016-06-30 14:40:00 Test Item Value Reference Range Interpretation Comments BUN (test code = BUN) 21 7-[address] [facility]2016-06-30 14:40:00 Test Item Value Reference Range Interpretation Comments Sodium Lvl (test code = Sodium Lvl) 143 135-[address] [facility]2016-06-30 14:40:00 Test Item Value Reference Range Interpretation Comments Potassium Lvl (test code = Potassium 3.8 3.5-5.1 Lvl) [facility]2016-06-30 14:40:00 Test Item Value Reference Range Interpretation Comments Glucose Lvl (test code = Glucose Lvl) 87 70-[address] [facility]2016-06-30 14:40:00 Test Item Value Reference Range Interpretation Comments Albumin Lvl (test code = Albumin Lvl) 4.0 3.5-5.[address] [facility]2016-06-30 14:40:00 Test Item Value Reference Range Interpretation Comments ALT (test code = ALT) 20 See_Comment [Auto mated message] The system which ge nerated this result transmit luana reference range : <=65. The reference range was not used to interpr et this result as angela l/abnormal. [facility]2016-06-30 14:40:00 Test Item Value Reference Range Interpretation Comments CO2 (test code = CO2) 33 24-[address] [facility]2016-06-30 14:40:00 Test Item Value Reference Range Interpretation Comments Chloride Lvl (test code = Chloride Lvl) 105 95-[address] [facility]2016-06-30 14:40:00 Test Item Value Reference Range Interpretation Comments Calcium Lvl (test code = Calcium Lvl) 9.2 8.5-10.[address] [facility]2016-06-30 14:40:00 Test Item Value Reference Range Interpretation Comments Total Protein (test code = Total 7.2 6.4-8.4 Protein) [facility]JybwjqhHURSDRLHDK7098-05-86 14:40:00 Test Item Value Reference Range Interpretation Comments MCHC (test code = MCHC) 33.1 32.0-36.0 [facility] HospitalMtzwtbuHWTXPXMYXK0664-77-45 14:40:00 Test Item Value Reference Range Interpretation Comments MCH (test code = MCH) 32.0 pg 27.0-31.0 [facility] HospitalFplaxgmLHWFBYRWJC7519-52-59 14:40:00 Test Item Value Reference Range Interpretation Comments RBC (test code = RBC) 4.28 4.20-5.40 [facility] HospitalNcrnvkvXARGWLSCPM3200-05-76 14:40:00 Test Item Value Reference Range Interpretation Comments WBC (test code = WBC) 6.6 3.7-10.4 [facility] HospitalPfmndbyDLFNTRPMTI9040-15-26 14:40:00 Test Item Value Reference Range Interpretation Comments MCV (test code = MCV) 96.7 80.0-98.0 [facility] HospitalHhfcglgDSEKEMAWCS2750-92-50 14:40:00 Test Item Value Reference Range Interpretation Comments Hct (test code = Hct) 41.4 36.0-48.0 [facility] HospitalWfpkancFYDLAONGLM5929-17-35 14:40:00 Test Item Value Reference Range Interpretation Comments Hgb (test code = Hgb) 13.7 12.0-16.0 [facility] HospitalJwgmogiKAQGQBCMZX0499-06-56 14:40:00 Test Item Value Reference Range Interpretation Comments RDW (test code = RDW) 12.2 11.5-14.5 [facility] HospitalVsjatchQLNDHIIYOM7511-07-15 14:40:00 Test Item Value Reference Range Interpretation Comments MPV (test code = MPV) 9.8 7.4-10.4 [facility] HospitalUmbxokuZOAQGCQHLA0477-63-73 14:40:00 Test Item Value Reference Range Interpretation Comments Platelet (test code = Platelet) 217 133-450 [facility] HospitalQivitkmSCJCFUIJDU7585-88-85 14:40:00 Test Item Value Reference Range Interpretation Comments INR (test code = INR) 0.90 0.85-1.17 [facility] HospitalSnmfseqDLJQASRMBF9388-44-59 14:40:00 Test Item Value Reference Range Interpretation Comments PT (test code = PT) 12.4 s 12.0-14.7 [facility] HospitalAcpfqmmQVMHSUIFLO2331-21-17 14:40:00 Test Item Value Reference Range Interpretation Comments PTT (test code = PTT) 30.5 s 22.9-35.8 [facility] HospitalWzkscijJNVEJVJRMY4826-71-71 14:40:00 Test Item Value Reference Range Interpretation Comments Segs (test code = Segs) 56.8 45.0-75.0 [facility] HospitalGlksxujHUQURPTRJL2134-90-47 14:40:00 Test Item Value Reference Range Interpretation Comments Lymphocytes (test code = Lymphocytes) 31.8 20.0-40.0 [facility] HospitalSzwayfpYEARAGDFHN9523-76-74 14:40:00 Test Item Value Reference Range Interpretation Comments Lymphocytes # (test code = Lymphocytes 2.1 1.0-5.5 #) [facility] HospitalVnnfbpqNJPUCVBRYB6594-39-82 14:40:00 Test Item Value Reference Range Interpretation Comments Segs-Bands # (test code = Segs-Bands #) 3.7 1.5-8.1 [facility] HospitalCtfeyeqXIOZKVPTVV9551-99-29 14:40:00 Test Item Value Reference Range Interpretation Comments Eosinophils (test code = 1.9 See_Comment [A utomated message] The Eosinophils) system which ge nerated this result tra nsmitted reference range : <=4.0. The reference r himanshu was not used to int erpret this result as normal/abnormal . [facility] HospitalNurnynrSGHWCCFVOY0385-72-51 14:40:00 Test Item Value Reference Range Interpretation Comments Basophils (test code = 1.1 See_Comment [Aut omated message] The Basophils) system which ge nerated this result tra nsmitted reference range : <=1.0. The reference r himanshu was not used to int erpret this result as normal/abnormal . [facility] HospitalRosamirMZZOLPJTPV0977-07-87 14:40:00 Test Item Value Reference Range Interpretation Comments Monocytes (test code = Monocytes) 8.4 2.0-12.0 [facility] HospitalQclkszcTDAXKIAEUT5601-89-42 14:40:00 Test Item Value Reference Range Interpretation Comments Eosinophils # (test code 0.1 See_Comment [A utomated message] The = Eosinophils #) system whic h generated this result tra nsmitted reference range : <=0.5. The reference r himanshu was not used to int erpret this result as normal/abnormal . [facility] Hospit[id number] 14:40:00 Test Item Value Reference Range Interpretation Comments Basophils # (test code 0.1 See_Comment [Aut omated message] The = Basophils #) system which generated this result tra nsmitted reference range : <=0.2. The reference r himanshu was not used to int erpret this result as normal/abnormal . [facility] HospitalYwyolsnNTGNBLQZUE9225-11-52 14:40:00 Test Item Value Reference Range Interpretation Comments Monocytes # (test code 0.6 See_Comment [Aut omated message] The = Monocytes #) system which generated this result tra nsmitted reference range : <=0.8. The reference r himanshu was not used to int erpret this result as normal/abnormal . [facility] AND [id number] 14:40:00 Test Item Value Reference Range Interpretation Comments UA Urobilinogen (test code = UA <=1.0 mg/dL 0.1-1.0 Urobilinogen) [facility] AND [id number] 14:40:00 Test Item Value Reference Range Interpretation Comments UA RBC (test code = 2 See_Comment [Automa luana message] The UA RBC) system which ge nerated this result transmit luana reference range : <=2. The reference range was not used to interpr et this result as angela l/abnormal. [facility] AND [id number] 14:40:00 Test Item Value Reference Range Interpretation Comments UA Bacteria (test code = UA Occasional /HPF Bacteria) [facility] AND [id number] 14:40:00 Test Item Value Reference Range Interpretation Comments UA Blood (test code = Negative (09/29/15 9:40 UA Blood) AM) [facility] AND [id number] 14:40:00 Test Item Value Reference Range Interpretation Comments UA Nitrite (test code Negative (09/29/15 9:40 = UA Nitrite) AM) [facility] AND [id number] 14:40:00 Test Item Value Reference Range Interpretation Comments UA Color (test code = Light Yellow UA Color) *NA*(09/29/15 9:40 AM) [facility] AND [id number] 14:40:00 Test Item Value Reference Range Interpretation Comments UA pH (test code = UA pH) 6.5 5.0-8.0 [facility] AND [id number] 14:40:00 Test Item Value Reference Range Interpretation Comments UA Turbidity (test code = Clear (09/29/15 9:40 UA Turbidity) AM) [facility] AND [id number] 14:40:00 Test Item Value Reference Range Interpretation Comments UA Spec Grav (test code = UA Spec Grav) 1.005 [facility] AND [id number] 14:40:00 Test Item Value Reference Range Interpretation Comments UA Leuk Est (test Negative (09/29/15 9:40 code = UA Leuk Est) AM) [facility] AND [id number] 14:40:00 Test Item Value Reference Range Interpretation Comments UA Sq Epi (test code = UA Sq Occasional /LPF Epi) [facility] AND [id number] 14:40:00 Test Item Value Reference Range Interpretation Comments UA WBC (test code = no gt See_Comment [Automa luana message] The UA WBC) system which ge nerated this result transmit luana reference range : <=5. The reference range was not used to interpr et this result as angela l/abnormal. [facility] AND [id number] 14:40:00 Test Item Value Reference Range Interpretation Comments UA Protein (test code = UA Negative mg/dL Protein) [facility] AND [id number] 14:40:00 Test Item Value Reference Range Interpretation Comments UA Glucose (test code = UA Negative mg/dL Glucose) [facility] AND [id number] 14:40:00 Test Item Value Reference Range Interpretation Comments UA Ketones (test code = UA Negative mg/dL Ketones) [facility] [id number] 14:40:00 Test Item Value Reference Range Interpretation Comments UA Bili (test code = Negative *NA*(09/29/15 UA Bili) 9:40 AM) [facility]
[2023-01-19 16:00] LABS: Absolute Lymphocytes (CBC) 1.5 K/uL (0.7-4.9); Hematocrit 33.2 % (36.0-45.0); Lymphocytes % 11.1 % (15.3-44.8); MCV 98.2 fL (80-100); MPV 7.2 fL (7.6-11.3); Platelets 331 thou/uL (152-406); RBC Red Blood Cell Count 3.38 M/uL (3.86-4.86)
--- NOTE | 2023-01-19 16:18 | RAD REPORT ---
EXAM DESCRIPTION: RADChest Single View01/19/2023 4:04 pm CLINICAL HISTORY: seizure COMPARISON: Chest Single View dated 01/12/2023; Chest Single View dated 01/04/2023; Chest Single View dated 01/04/2023 TECHNIQUE: Portable AP view of the chest. FINDINGS: Central interstitial prominence and bilateral central fluffy opacities with small effusion s. No pneumothorax. The cardiomediastinal contours are unremarkable. IMPRESSION: Findings suggestive of pulmonary edema.
[2023-01-19 16:25] LABS: Potassium 3.5 mEq/L (3.5-5.1); Troponin High Sensitivity 11.7 pg/mL (<58.9)
[2023-01-19 16:29] LABS: Blood Morphology Comment NOT SEEN (NOT SEEN); Platelet Estimate DECR; White Blood Cell Scan OK (OK)
[2023-01-19] MEDS ORDERED: NA CHLORIDE 0.9% 100 ML ONE (17:10)
[2023-01-19] MEDS ORDERED: FOSPHENYTOIN PE 500 MG/10 ML VIAL ONE (17:10)
--- NOTE | 2023-01-19 17:20 | RAD REPORT ---
EXAM DESCRIPTION: CT - Head Brain Wo Cont - 01/19/2023 4:52 pm CLINICAL HISTORY: Confused;Seizure COMPARISON: Head Brain Wo Cont dated 01/04/2023; Head angio dated 01/04/2023 TECHNIQUE: Noncontrast head CT images were obtained without IV contrast. Multiplanar reformats were generated and reviewed. All CT scans are performed using dose optimization technique as appropriate and may include automated exposure control or mA/KV adjustment according to patient size. FINDINGS: Resolution of hyperdensity associated with the left parietal focus of parenchymal hemorrha ge seen on the prior exam. Residual edema and mild mass effect contributing to asymmetric left trigon e effacement, stable. Other patchy periventricular and deep white matter hypodensities, stable and nonspecific, most sugges tive of chronic small vessel ischemic changes. No intracranial hemorrhage. Midline structures are unremarkable. Normal ventricular caliber for age. Curran-white matter differentiation is otherwise preserved, without evidence of acute infarct. No abnor mal extra-axial fluid collections. Mastoid air cells and visualized portions of the paranasal sinuses are clear. No acute bony findings. IMPRESSION: Time interval changes with resolution of hyperdensity associated with the left parietal focus of parenchymal hemorrhage. Stable edema and mild mass effect. No other evidence of an acute int racranial process.
--- NOTE | 2023-01-19 18:03 | ER ---
Nurse's Notes [facility] Name: Marisela Chong Age: 87 yrs Sex: Female : 1935 Arrival Date: 01/19/2023 Time: 14:55 Bed 18 Private MD: Diagnosis: Other seizures;Left posterior occipital lesion, improving;Altered mental status, unspecified;Aphasia Presentation: 01/19 15:13 Chief complaint: Daughter reports tremors and clear urine in urine collection bag hb today. Recently inpatient at [facility] for UTI and CVA, on Levaquin Day 5. Coronavirus screen: At this time, the client does not indicate any symptoms associated with coronavirus-19. Ebola Screen: No symptoms or risks identified at this time. Risk Assessment: Do you want to hurt yourself or someone else? Patient reports no desire to harm self or others. Onset of symptoms was January 19, 2023. 15:13 Method Of Arrival: Wheelchair hb 15:13 Acuity: AMBROSE 3 hb Historical: - Allergies: 15:18 Sulfa (Sulfonamide Antibiotics); hb - PMHx: 15:18 Anxiety; Hypertensive disorder; hb - PSHx: 15:18 back; hb - Immunization history:: Adult Immunizations up to date. - Social history:: Smoking status: unknown. Screenin:45 [facility] ED Fall Risk Assessment (Adult) Score/Fall Risk Level 0 - 2 = Low Risk. Abuse eh3 screen: Denies threats or abuse. Denies injuries from another. Nutritional screening: No deficits noted. Tuberculosis screening: No symptoms or risk factors identified. Assessment: 15:45 General: Appears in no apparent distress. uncomfortable, Behavior is quiet. Pain: eh3 Denies pain. Neuro: Level of Consciousness is awake, post ictal, Oriented to person, place. Cardiovascular: Capillary refill < 3 seconds Patient's skin is warm and dry. Respiratory: Airway is patent Respiratory effort is even, unlabored, Respiratory pattern is regular, symmetrical. GI: Abdomen is round non-distended. Derm: Skin is pink, warm \T\ dry. Musculoskeletal: Circulation, motion, and sensation intact. 16:00 Reassessment: Patient appears in no apparent distress at this time. Patient and/or eh3 family updated on plan of care and expected duration. Pain level reassessed. Pt is alert, oriented x 2, equal unlabored respirations, skin warm/dry/pink. 17:00 Reassessment: Patient appears in no apparent distress at this time. Patient and/or eh3 family updated on plan of care and expected duration. Pain level reassessed. Pt is alert, oriented x 2, equal unlabored respirations, skin warm/dry/pink. Frequently attempts to cough up phlegm. RT consulted and suctioned pt, placed on 2L O2 via NC. Vital Signs: 15:13 BP 155 / 64; Pulse 86; Resp 21; Pulse Ox 95% on R/A; Weight 95.25 kg; Height 5 ft. 5 hb in. ; Pain 0/10; 16:00 BP 147 / 56; Pulse 71; Resp 18; Pulse Ox 96% on R/A; eh3 17:00 BP 137 / 61; Pulse 73; Resp 20; Pulse Ox 95% on 2 lpm NC; eh3 15:13 Body Mass Index 34.95 (95.25 kg, 165.1 cm) hb 15:13 Pain Scale: Adult hb ED Course: 14:58 Patient arrived in ED. ts1 15:18 Triage completed. hb 15:29 Jose Lopez MD is Attending Physician. kdr 15:31 Radha Mancini, SB is Primary Nurse. eh3 15:42 Arm band placed on. hb 15:43 Patient has correct armband on for positive identification. Placed in gown. Bed in low eh3 position. Call light in reach. Side rails up X2. Adult w/ patient. Seizure precautions initiated. 15:45 Provided Education on: Use of call hawk. Client placed on continuous cardiac and pulse eh3 oximetry monitoring. NIBP monitoring applied. Door closed. Noise minimized. Lights dimmed. Warm blanket given. Pillow given. 15:45 Inserted saline lock: 22 gauge in left antecubital area, using aseptic technique. Blood eh3 collected. 16:06 XRAY Chest (1 view) In Process Unspecified. EDMS 16:54 CT Head Brain wo Cont In Process Unspecified. EDMS Administered Medications: 17:03 Drug: Fosphenytoin IVPB 1 grams IVPB once; (mix in 50 to 100mL NS) Route: IVPB; Site: ph left antecubital; Outcome: 18:02 ER care complete, transfer ordered by . kdr 19:00 Patient left the ED. ll1 Signatures: Dispatcher [employer] EDMS Jose Lopez MD MD [facility] Jemma Mancini RN RN Katya Abdi RN RN Denilson Martinez RN RN 1 Radha Mancini RN RN 3 Becka Alexander PAS PAS ts1 Corrections: (The following items were deleted from the chart) 15:42 15:13 Chief complaint: Daughter reports tremors and clear urine in urine collection bag hb today. Recently inpatient at [facility] for UTI, on Levaquin Day 5. hb 15:47 15:13 Chief complaint: Daughter reports tremors and clear urine in urine collection bag hb today. Recently inpatient at [facility] for UTI, and CVA, on Levaquin Day 5. hb 15:58 15:35 Inserted saline lock: 22 gauge in left antecubital area, using aseptic technique. eh3 Blood collected. eh3 17:44 16:45 Reassessment: Patient appears in no apparent distress at this time. Patient eh3 and/or family updated on plan of care and expected duration. Pain level reassessed. Patient is alert, oriented x 3, equal unlabored respirations, skin warm/dry/pink. eh3
--- NOTE | 2023-01-19 18:03 | EDPHYS ---
Physician Documentation [facility] Name: Marisela Chong Age: 87 yrs Sex: Female : 1935 Arrival Date: 01/19/2023 Time: 14:55 Bed 18 Private MD: ED Physician Jose Lopez HPI: 01/19 16:49 This 87 yrs old Female presents to ER via Wheelchair with complaints of Possible kdr seizure. 16:49 Patient presents today with possible seizure activity. Patient was recently diagnosed kdr with a brain lesion at [facility]. Patient was also diagnosed with a urinary tract infection. Patient was recently sent home with a prescription for antibiotics (Levaquin) and was on medication for anxiety but no anticonvulsants. According to the daughter the patient had not had any seizure history previous nor during her hospital stay at [facility]. According to the daughter the patient's baseline was to answer questions appropriately and her speech was reasonably well and appropriate. Since the apparent seizure activity earlier today, the patient has had right upper extremity twitching and inability to speak or respond to questions timely or appropriately. When you asked the patient a specific questions, she responds with a series of letters and numbers.. Severity of symptoms: At their worst the symptoms were mild in the emergency department the symptoms are unchanged. The patient has not experienced similar symptoms in the past. The patient has been recently seen by a physician: Patient was discharged from [facility] recently from the neurology service. Historical: - Allergies: 15:18 Sulfa (Sulfonamide Antibiotics); hb - PMHx: 15:18 Anxiety; Hypertensive disorder; hb - PSHx: 15:18 back; hb - Immunization history:: Adult Immunizations up to date. - Social history:: Smoking status: unknown. ROS: 16:49 Constitutional: Negative for fever, chills, and weight loss, Eyes: Negative for injury, kdr pain, redness, and discharge, Neck: Negative for injury, pain, and swelling, Cardiovascular: Negative for chest pain, palpitations, and edema, Respiratory: Negative for shortness of breath, cough, wheezing, and pleuritic chest pain, Abdomen/GI: Negative for abdominal pain, nausea, vomiting, diarrhea, and constipation, Back: Negative for injury and pain, MS/Extremity: Negative for injury and deformity, Skin: Negative for injury, rash, and discoloration, Neuro: Negative for headache, weakness, numbness, tingling, and seizure activity. Exam: 17:06 Constitutional: This is a well developed, well nourished patient who is awake, alert, kdr and in no acute distress. 17:55 Head/Face: Normocephalic, atraumatic. Eyes: Pupils equal round and reactive to light, kdr extra-ocular motions intact. Lids and lashes normal. Conjunctiva and sclera are non-icteric and not injected. Cornea within normal limits. Periorbital areas with no swelling, redness, or edema. Neck: Trachea midline, no thyromegaly or masses palpated, and no cervical lymphadenopathy. Supple, full range of motion without nuchal rigidity, or vertebral point tenderness. No Meningismus. Chest/axilla: Normal chest wall appearance and motion. Nontender with no deformity. No lesions are appreciated. Abdomen/GI: Soft, non-tender, with normal bowel sounds. No distension or tympany. No guarding or rebound. No evidence of tenderness throughout. 17:55 Skin: Warm, dry with normal turgor. Normal color with no rashes, no lesions, and no evidence of cellulitis. 17:55 Cardiovascular: Edema: 2+ edema to level of left midcalf, left ankle, left foot, left toes, right midcalf, right ankle, right foot and right toes, 17:55 Musculoskeletal/extremity: Patient is exhibiting arrhythmic clenching of the right fist and upper extremity. Otherwise her extremities are without acute change or concern. 17:55 Neuro: Orientation: unable to test, Mentation: slow to respond, unable to follow commands, Memory: unable to test, Cranial nerves: no acute changes, Motor: Patient is moving all extremities no the right lower extremity is diminished. Given the patient's aphasia (apparent receptive and expressive), is difficult to determine the extent to which the patient has control over her extremities., Vital Signs: 15:13 BP 155 / 64; Pulse 86; Resp 21; Pulse Ox 95% on R/A; Weight 95.25 kg; Height 5 ft. 5 hb in. ; Pain 0/10; 16:00 BP 147 / 56; Pulse 71; Resp 18; Pulse Ox 96% on R/A; eh3 17:00 BP 137 / 61; Pulse 73; Resp 20; Pulse Ox 95% on 2 lpm NC; eh3 15:13 Body Mass Index 34.95 (95.25 kg, 165.1 cm) hb 15:13 Pain Scale: Adult hb MDM: 15:44 Patient medically screened. snw 17:08 Data reviewed: vital signs, nurses notes. kdr 17:53 ED course: With completion of infusion of the Celebrex, the tonic-clonic activity in kdr the right upper extremity has resolved. Patient is still aphasic. Patient vital signs are otherwise stable. I discussed the patient's condition and findings with the family. Family consented and agreed to transfer the patient back to [facility] for reevaluation and further management of the patient's ongoing evolving neurologic needs. 01/19 15:32 Order name: Basic Metabolic Panel; Complete Time: 16:35 kdr 01/19 15:32 Order name: CBC with Diff; Complete Time: 16:35 kdr 01/19 15:32 Order name: Troponin HS; Complete Time: 16:35 kdr 01/19 16:03 Order name: CBC Smear Scan; Complete Time: 16:35 EDMS 01/19 15:32 Order name: XRAY Chest (1 view); Complete Time: 16:35 kdr 01/19 15:32 Order name: CT Head Brain wo Cont; Complete Time: 17:25 kdr 01/19 15:32 Order name: EKG; Complete Time: 15:33 kdr 01/19 15:32 Order name: Cardiac monitoring; Complete Time: 15:36 kdr 01/19 15:32 Order name: EKG - Nurse/Tech; Complete Time: 15:57 kdr 01/19 15:32 Order name: IV Saline Lock; Complete Time: 15:57 kdr 01/19 15:32 Order name: Labs collected and sent; Complete Time: 15:57 kdr 01/19 15:32 Order name: O2 Per Protocol; Complete Time: 15:36 kdr 01/19 15:32 Order name: O2 Sat Monitoring; Complete Time: 15:36 kdr Administered Medications: 17:03 Drug: Fosphenytoin IVPB 1 grams IVPB once; (mix in 50 to 100mL NS) Route: IVPB; Site: ph left antecubital; Disposition Summary: 01/19/23 18:02 Transfer Ordered Notes: Transfer Location: [facility] kdr Reason: Higher level of care kdr Condition: Fair kdr Problem: new kdr Symptoms: have improved kdr Accepting Physician: juan antonio(01/19/23 19:00) 1 Diagnosis - Other seizures kdr - Left posterior occipital lesion, improving kdr - Altered mental status, unspecified kdr - Aphasia kdr Discharge Instructions: - Discharge Summary Sheet ll1 Forms: - Medication Reconciliation Form kdr - SBAR form ll1 Signatures: Dispatcher [employer] EDMS Jose Lopez MD MD kdr Marycarmen Bernard, VP ORGANIZATIONAL DEVELOPMENT-C VP ORGANIZATIONAL DEVELOPMENT-Csnw Jemma Mancini RN RN Katya Tillman RN RN Denilson Martinez RN RN [facility] Radha Mancini RN RN 3 Corrections: (The following items were deleted from the chart) 19:00 18:02 juan antonio kdr 1
[2023-01-19] MEDS ORDERED: ONDANSETRON 4 MG/2 ML VIAL ONE (20:33)
--- NOTE | 2023-01-22 12:00 | EKG ---
Test Date: 2023-01-19 Test Time: 15:46:06 Head Still Operator: LISA MEASUREMENT RESULTS: Intervals: Rate: 80 FL: 144 QRSD: 78 QT: 392 QTc: 452 Brickeys: P: 23 FL: 144 QRS: 28 T: 12 INTERPRETIVE STATEMENTS: Sinus rhythm with premature atrial complexes in a pattern of bigeminy Otherwise normal ECG Compared to ECG 01/19/2023 15:44:50 Atrial premature complex(es) now present ST (T wave) deviation no longer present Electronically Signed On 01-22-23 11:55:21 CDT by Andrea Bello
== END 2023-01-19 19:00 | disposition short-term general hospital (02) ==
LOC: ER 14:55
DX: R56.9 Unspecified convulsions (principal); R41.82 Altered mental status, unspecified; R47.01 Aphasia; G93.89 Other specified disorders of brain; I10 Essential (primary) hypertension; Z88.2 Allergy status to sulfonamides
CPT/HCPCS: 93005; 85025; 80048; 36415; 84484; 70450; 71045; 96374; 99284; Q2009; J2405